=== PATIENT | female | born 1985 | race Caucasian/White ===

== ENCOUNTER 2017-10-10 10:49 | Day surgery (SDC) | payer OTHER, SELFPAY ==
[2017-10-10 11:28] VITALS: BP 113/65; PULSE 92; RESP 16; TEMP 36.7; O2SAT 100; BMI 34.3
[2017-10-10] MEDS: Doxycycline 100 MG CAPSULE PO (11:39)
--- NOTE | 2017-10-10 12:30 | POC_PTH ---
PATIENT: MARCOS DAVILA LOC: [facility] [place] U#:[id number] AGE/SX: 32/F ROOM: RE10/10/[address]: Dr. Tamy Savage MD : 1985 BED: DIS: 10/10/2017 SPEC #: [id number] RECD: 10/10/17 13:57 STATUS: PRABHU MARY ELLEN #: [id number] ITALIA: 10/10/17 12:[address]: Tamy Savage DEPT: SURGICAL PATHOLOGY RECD BY: Minal Morris ENTERED: 10/10/17 14:35 SP TYPE: PROD CONC OTHR DR: Dr. Flora Hart MD Tissues: Product of conception, NOS Procedures: Evaluation Small (ACH) Placental Eval (ACH) Surgery Specimen Level IV HEADER OPERATION: Dilation and curettage, suction PRE-OP DIAGNOSIS: Missed AB TISSUE SUBMITTED: POC for genetic studies MICROSCOPIC DIAGNOSIS Endometrium, curettage: Chorionic villi, decidualized stroma and trophoblastic cells consistent with products of conception. AM:delvis 10/13/17 MICROSCOPIC DESCRIPTION Slides are reviewed. GROSS DESCRIPTION Received is one container labeled with the patient's name and designated products of conception. The specimen consists of multiple irregular fragments of red-baker soft tissue that in aggregate measure 14 x 8 x 0.6 cm. Lead Loader portions are submitted for cytogenetic analysis. Lead Loader portions are submitted in one cassette. / AM:delvis 10/10/17 TC:5 CPT: 59382 ADDENDUM ADDENDUM ADDENDUM ADDENDUM ADDENDUM ADDENDUM ADDENDUM 10/23/2017 09:48 ADDENDUM 10/23/2017 09:48 ADDENDUM 10/23/2017 09:48 ADDENDUM 10/23/2017 09:48 ADDENDUM 10/23/2017 09:48 PROVISIONAL EVALUATION REPORT FROM [facility] PROVISIONAL ANATOMIC DIAGNOSIS: First trimester gestation with placental tissue that demonstrates fibrotic villi; placenta tissue is submitted for karyotype. * Please see complete report in EMR for further details *
[2017-10-10 13:40] VITALS: BP 109/73; BP 113/65; PULSE 83; RESP 14; TEMP 37.1; O2SAT 94
[2017-10-10 13:45] VITALS: BP 113/65; BP 123/66; PULSE 97; RESP 16; O2SAT 96
[2017-10-10 13:50] VITALS: BP 113/65; BP 117/72; PULSE 85; RESP 16; O2SAT 95
[2017-10-10 13:55] VITALS: BP 107/73; BP 113/65; PULSE 83; RESP 16; TEMP 36.3; O2SAT 97
--- NOTE | 2017-10-10 14:36 | PCM.DC.D&C ---
Allergies/Adverse Reactions: Allergies iodine Adverse Reaction (Verified 10/10/17 11:27) (IV DYE ONLY) Hives (IV DYE ONLY) Medications to take at Discharge Amoxicillin/Potassium Clav [Amox Tr-K Clv 875-125 mg Tab] 1 each PO BID 10/09/17 Primary Care Physician: Flora Hart MD [Primary Care Provider] - Please Follow Up With: Tamy Savage MD - [phone]
[2017-10-10 14:40] VITALS: BP 113/65
--- NOTE | 2017-10-13 05:45 | PCM.OPRPT ---
Problem List (1) Missed Status: Acute Report of Operation Date of Procedure: 10/10/17 Pre-Operative Diagnosis: missed ab Post-Operative Diagnosis: same Surgery/Procedure Performed:: suction d and c Description of Surgical Findings:: 10 week missed ab- pole measuring 9 weeks with no FHT seen Type of Anesthesia:: Local MAC Specimen's removed: POC Estimated Blood Loss (mL): 100 Fluids Replaced: crystalloid Description of Procedure: Patient was evaluated preoperatively and found to have a missed at 10 weeks of with a pole only measuring 9 weeks with no heart tones seen. Patient was counseled and offered medical management versus surgical and patient chose suction D&C. Patient received IV anesthesia was prepped and draped in normal sterile fashion in the dorsal lithotomy position. Cervix was grasped with ring forceps and previously dilated to allow passage of a 10 mm suction curette. Uterus sounded 10 cm. Multiple passes were made with the suction curette to remove products of conception and then sharp curettage was formed to confirm all removal of packs of conception. All instruments were removed from the vagina and patient was awoken and taken recovery in stable condition. Grafts/Implants Used: none - Complications none - Admit VTE Documentation VTE Present on Admission: No VTE Mechan Device Prophylaxis: SCD's
== END 2017-10-10 15:04 | disposition home or self-care (01) ==
LOC: SDC 10:50 → ACINP 10:51 → AC 10:55
PROVIDERS: Family Provider Family Medicine; PCP Family Medicine; Visit Provider Obstetrics & Gynecology
PROC: (CPT 59820; principal; 2017-10-10 12:15)
DX: O02.1 Missed abortion (principal); Z79.891 Long term (current) use of opiate analgesic
CPT/HCPCS: 01965; 59820; 88305; 88307; J7120; J2405

== ENCOUNTER → 2018-02-17 14:41 | Outpatient (CLI) | payer OTHER, SELFPAY ==
[2018-02-17 15:44] LABS: Absolute Lymphocyte Count 1.68 X10^3/ul (0.83-4.51); Absolute Neutrophil Count 7.2 X10^3/uL (2.0-7.7); Basophil# 0.03 X10^3/uL; Basophil% 0.3 % (0-1); Eosinophil# 0.08 X10^3/uL; Eosinophils% 0.8 % (0-5); Hematocrit 39.9 % (37-47); Hemoglobin 13.6 g/dl (12.0-15.0); Lymphocyte # 1.68 X10^3/ul (4.0); Lymphocyte % 17.2 % (19-41); Mean Corp Hgb Conc 34.1 g/gl (32-36); Mean Corpuscular Hgb 28.5 pg (27.0-32.0); Mean Corpuscular Volume 83.6 fL (81-99); Mean Platelet Vol. 11.2 fl (6.2-12.0); Monocyte# 0.81 X10^3/uL; Monocyte% 8.3 % (0-10); Neutrophil # 7.16 X10^3/uL (2.7-7.7); Neutrophil % 73.1 % (47-70); Platelet Count 189 K/mm3 (150-450); RBC Distribution Width CV 13.1 % (11.6-14.6); RBC Distribution Width SD 39.7 fl (35.1-43.9); Red Blood Count 4.77 M/mm3 (4.2-5.4); White Blood Count 9.8 K/mm3 (4.4-11.0)
[2018-02-17 15:53] LABS: POSITIVE COUNT NO; POSITIVE DIFFERENTIAL NO; POSITIVE MORPHOLOGY NO
[2018-02-18 10:41] LABS: HIV - WCH Non-Reactive (Nonreactive); Rubella IgG 114.3 IU/mL
[2018-02-20 03:47] LABS: Rapid Plasmin Reagin (RPR) NONREACTIVE (NONREACTIVE)
[2018-02-20 07:10] LABS: HEPATITIS B SURFACE AG Negative (Negative)
== END ==
PROVIDERS: Family Provider Family Medicine; PCP Family Medicine; Visit Provider Obstetrics & Gynecology
DX: Z34.90 Encounter for supervision of normal pregnancy, unspecified, unspecified trimester (principal)
CPT/HCPCS: 36415; 85025; 86592; 86703; 86762; 86850; 86900; 87340

== ENCOUNTER → 2018-02-17 15:01 | Outpatient (CLI) | payer OTHER, SELFPAY ==
[2018-02-17 16:44] LABS: Chlamydia Trachomatis by PCR Negative (Negative); Neisserai gonorrhoeae by PCR Negative (Negative); Probe Check PASS; Sample Adequacy Control PASS; Specimen Processing Control PASS
== END ==
PROVIDERS: Family Provider Family Medicine; PCP Family Medicine; Visit Provider Obstetrics & Gynecology
DX: Z34.90 Encounter for supervision of normal pregnancy, unspecified, unspecified trimester (principal)
CPT/HCPCS: 87086; 87088; 87491; 87591

== ENCOUNTER → 2018-03-12 13:27 | Outpatient (CLI) | payer OTHER, SELFPAY | PROVIDERS: Family Provider Family Medicine; PCP Family Medicine; Visit Provider Obstetrics & Gynecology | DX: Z31.5 Encounter for procreative genetic counseling (principal); O09.522 Supervision of elderly multigravida, second trimester; Z3A.00 Weeks of gestation of pregnancy not specified ==

== ENCOUNTER → 2018-04-29 16:19 | Outpatient (CLI) | payer OTHER, SELFPAY | PROVIDERS: Family Provider Family Medicine; PCP Family Medicine; Visit Provider Nurse Practitioner Women's Health | DX: O09.90 Supervision of high risk pregnancy, unspecified, unspecified trimester (principal); Z3A.00 Weeks of gestation of pregnancy not specified | CPT/HCPCS: 76805 ==

== ENCOUNTER → 2018-05-18 10:38 | Outpatient (CLI) | payer OTHER, SELFPAY | PROVIDERS: Family Provider Family Medicine; PCP Family Medicine; Visit Provider Obstetrics & Gynecology | DX: Z36.9 Encounter for antenatal screening, unspecified (principal) | CPT/HCPCS: 36415 ==

== ENCOUNTER → 2018-05-25 16:24 | Outpatient (CLI) | payer OTHER, SELFPAY ==
--- NOTE | 2018-05-25 16:43 | US_ITS ---
STUDY: SECOND AND THIRD TRIMESTER OBSTETRICAL ULTRASOUND - LIMITED REASON FOR EXAM: Female, 33 years old. Follow-up examination. LMP: 12/16/2017 PRIOR ULTRASOUND: 04/29/2018. TECHNIQUE: Transabdominal ultrasound evaluation was performed. FINDINGS: There is a single intrauterine fetus. The fetus is in a cephalic presentation. There is demonstrated cardiac activity with a heart rate of 156 bpm. There is a normal amniotic fluid volume. The amniotic fluid index (SAURAV) is not measured. The placenta is anterior in location and is not low lying. There are Grade 1 placental changes. The cervix measures 4.8 cm in length. BIOMETRY: BPD: 57 mm: 23 weeks, 2 days HC: 209 mm: 23 weeks, 0 days AC: 187 mm: 23 weeks, 4 days FL: 42 mm: 23 weeks, 4 days Age by LMP: 22 weeks, 6 days. ADRIAN by LMP: 09/22/2018. age by prior US: 20 weeks, 1 days. ADRIAN by prior US: 09/15/2018. age by current US: 23 weeks, 3 days. ADRIAN by current US: 09/18/2018. Estimated weight: 594 grams, +/- 87 grams, 72 percentile. Gender: Indeterminant. spine as visualized in the sagittal planes on this examination appears to be unremarkable. It is not well-seen on the transverse planes. US/OB Limited (No Biometrics) IMPRESSION: Single live intrauterine fetus in cephalic presentation with an estimated gestational age of 23 weeks and 3 days. The ADRIAN is 09/18/2018. Electronically Signed: Bryan Condon MD at 23:57 EDT Tel , Service support ,
== END ==
PROVIDERS: Family Provider Family Medicine; PCP Family Medicine; Visit Provider Nurse Practitioner Women's Health
DX: O09.90 Supervision of high risk pregnancy, unspecified, unspecified trimester (principal); Z3A.00 Weeks of gestation of pregnancy not specified
CPT/HCPCS: 76815

== ENCOUNTER → 2018-07-01 07:08 | Outpatient (CLI) | payer OTHER, SELFPAY ==
[2018-07-01 09:03] LABS: Absolute Lymphocyte Count 1.84 X10^3/ul (0.83-4.51); Absolute Neutrophil Count 8.4 X10^3/uL (2.0-7.7); Basophil# 0.03 X10^3/uL; Basophil% 0.3 % (0-1); Eosinophil# 0.16 X10^3/uL; Eosinophils% 1.4 % (0-5); Hematocrit 35.6 % (37-47); Hemoglobin 11.9 g/dl (12.0-15.0); Lymphocyte # 1.84 X10^3/ul (4.0); Lymphocyte % 15.8 % (19-41); Mean Corp Hgb Conc 33.4 g/gl (32-36); Mean Corpuscular Hgb 28.9 pg (27.0-32.0); Mean Corpuscular Volume 86.4 fL (81-99); Mean Platelet Vol. 11.7 fl (6.2-12.0); Monocyte# 1.08 X10^3/uL; Monocyte% 9.3 % (0-10); Neutrophil # 8.39 X10^3/uL (2.7-7.7); Neutrophil % 72.2 % (47-70); Platelet Count 169 K/mm3 (150-450); RBC Distribution Width CV 14.2 % (11.6-14.6); RBC Distribution Width SD 44.1 fl (35.1-43.9); Red Blood Count 4.12 M/mm3 (4.2-5.4); White Blood Count 11.6 K/mm3 (4.4-11.0)
[2018-07-01 09:05] LABS: POSITIVE COUNT NO; POSITIVE DIFFERENTIAL NO; POSITIVE MORPHOLOGY NO
[2018-07-01 09:23] LABS: Glucose Challenge Gest 1H 50g 67 mg/dL (70-140)
== END ==
PROVIDERS: Family Provider Family Medicine; PCP Family Medicine; Referring Provider Obstetrics & Gynecology; Visit Provider Obstetrics & Gynecology
DX: O09.90 Supervision of high risk pregnancy, unspecified, unspecified trimester (principal); Z3A.00 Weeks of gestation of pregnancy not specified
CPT/HCPCS: 36415; 82950; 85025

== ENCOUNTER 2018-09-02 02:11 | Inpatient (IN) | payer OTHER, SELFPAY ==
[2018-08-24 08:13] VITALS: BMI 39.6
[2018-09-02] MEDS: Betamethasone/Betamethasone 30 MG/5 ML Vial 12 MG IM (03:25)
[2018-09-02] MEDS: Lactated Ringers 1,000 ML 50 ML IV ×4 (03:31→17:35)
[2018-09-02] MEDS: miSOPROStol 25 MCG TABLET PO ×4 (03:41→11:43)
[2018-09-02 03:46] LABS: Hematocrit 33.1 % (37-47); Hemoglobin 11.1 g/dl (12.0-15.0); Mean Corp Hgb Conc 33.5 g/gl (32-36); Mean Corpuscular Hgb 28.5 pg (27.0-32.0); Mean Corpuscular Volume 84.9 fL (81-99); Platelet Count 149 K/mm3 (150-450); RBC Distribution Width SD 42.5 fl (35.1-43.9); Scan Indicated on CBC? Y/N NO; White Blood Count 11.9 K/mm3 (4.4-11.0)
[2018-09-02 03:55] VITALS: BMI 40.2
[2018-09-02 04:54] LABS: Group B Strep DNA By PCR Negative (Negative); Internal Control PASS; Probe Check PASS; Specimen Processing Control PASS
[2018-09-02] MEDS: Nalbuphine 10 MG/ML Ampul IV ×2 (06:06→09:59)
--- NOTE | 2018-09-02 06:59 | PCM.HP.OB ---
- Problem List (1) PROM (premature rupture of membranes) Status: Acute (2) Depression affecting Status: Acute Comment: zoloft, counseled regarding risks of medication, counseling encouraged (3) Status: Acute Qualifiers: Comment: NIPT WNL. carrier screening declined. AFP negative. anatomy scan limited view of spine- fu normal (4) Advanced maternal age (AMA) in Status: Acute Comment: NIPT low risk (5) Supervision of high risk , antepartum Status: Acute Comment: PRR ADRIAN 09/28/17 Girl PC Abimbola Obdulio History Date of Admission: 09/02/18 Final ADRIAN: 09/28/18 Gestational age: 36 Weeks and 2 Days History of this : This is a 33 year-old, at 36 weeks gestational age presents with PROM 1 cm dilated clear fluid minimal contractions. she denies any symptoms of infection and has had an uncomplicated . Medical History: Medical History (Last Reviewed 08/24/18 @ 08:13 by Cassi Saez) Anxiety F41.9 Melanoma C43.9 Surgical History: Surgical History (Last Reviewed 08/24/18 @ 08:13 by Cassi Saez) lymph node surgery S/P dilation and curettage Z98.890 Allergies iodine Adverse Reaction (Verified 09/02/18 04:19) (IV DYE ONLY) Hives (IV DYE ONLY) Home Medications: Home Medications docosahexanoic acid 200 mg capsule 200 mg PO DAILY 02/17/18 Sertraline HCl [Zoloft] 50 mg PO QDAY 09/02/18 Smoking Status: Never smoker Alcohol: None Number of Fetus(es): 1 Heart Tracin moderate variability reactive no decels cat I tracing TOCO Analysis: infrequent History Past Pregnancies: Past Pregnancies Pregancy History 3 Elective abortions Hx Para 1 Spontaneous abortions 1 Hx # Term Pregnancies 1 Ectopic pregnancies Hx # Pregnancies Multiple births # of living children 1 Past Pregnancies Del. Date Name GA/Weeks Outcome Route Bth Weight Infant Gen Labor Lgth Anesthesia Del Locatn Provider FOB Unknown 2013 Abimbola 38 live - full term Female Meron SHENA OB Visit ADRIAN Calculator Estimated Delivery Date 09/28/18 Based on Ultrasound Date 02/17/18 Current WG 35w 0d Number 1 Expected Delivery Route/Plan Specific Issue/Plans flu vaccine: given tdap vaccine: given rhogam: NA LARC form signed: decline labor support person: Obdulio pain management: epidural cut cord/dad catch: yes : yes PP control planned: special requests: [] Labs: Mom's Microbiology 09/02/18 Unknown Genital vaginal Group B Streptococcus Culture - Pending Mom's Problem List Problem Status Onset Code PROM (premature rupture of membranes) Acute O42.90 Mom's Labs & Results 09/02/18 09/02/18 09/02/18 02:31 03:25 03:25 WBC 11.9 H RBC 3.90 L Hgb 11.1 L Hct 33.1 L MCV 84.9 MCH 28.5 MCHC 33.5 RDW 14.0 RDW Differential 42.5 Plt Count 149 L MPV 12.0 Group B Strep DNA Negative Specimen Comment Not Reportable Blood Type O POSITIVE Antibody Screen NEGATIVE Course Did the patient receive Yes care? Labs Blood Type: O RH: POSITIVE RPR/VDRL/Syphilis Nonreactive Rubella status Immune HbSAg Negative Date Done: 02/17/18 Chlamydia Negative Gonorrhea Negative HIV/AIDS Non-Reactive Group B Strep: Collected on Admission Current Obstetrical History Gestational Diabetes No Incompetent Cervix No Infertility No IUGR No Macrosomia No Hypertension/Pre-eclampsia No Placenta Previa/Abruption No PTL/PROM Yes: srom 36.2 weeks Uterine anomaly No Oligohydramnios No Polyhydramnios No Multiple gestation No Past Medical History Asthma No Diabetes No Hypertension No Heart disease No Mitral valve prolapse No Neurologic/Seizure disorder/ No Migraines Kidney disease No Liver disease No Varicosities No Clotting disorders/Hx of DVT No Thyroid Dysfunction No Other medical diseases Yes: melanoma in 2013 Psychiatric disorders Yes: depression and anxiety Major trauma No Abnormal PAP smear No Sleep apnea No Mammogram in the last 2 years No Social History Marital Status: Alleged father Obdulio Nelson Hx Smoking No Smoking Status Never smoker How long have you used n/a substances (years)? What date/time did you last n/a use any of the above? Have you had any previous n/a inpatient or outpatient treatment Expected Delivery Method: Spontaneous Vaginal Describe any other labor & delivery plans:: OB Visit. ADRIAN Calculator. Estimated Delivery Date 09/28/18. Based on Ultrasound Date 02/17/18. Current WG 35w 0d. Number 1. Expected Delivery Route/Plan. . Specific Issue/Plans. flu vaccine: given. tdap vaccine: given. rhogam: NA. LARC form signed: decline. labor support person: Obdulio. pain management: epidural. cut cord/dad catch: yes. : yes. PP control planned: special requests: [] Review of Systems Constitutional: Denies: Fever, Malaise Eyes: Denies: Blurred vision, Vision Change HEENT: Denies: Head Aches, Visual Changes Cardiovascular: Denies: Chest Pain, Palpitations Respiratory: Denies: Cough, Shortness of Breath, Wheezing Gastrointestinal: Denies: Abdominal Pain, Diarrhea, Nausea, Vomiting Genitourinary: Denies: Dysuria, Hematuria Gynecological: Reports: Vaginal discharge Musculoskeletal: Denies: Joint Pain, Muscle pain Skin: Denies: Lesions, Rash Neurological: Denies: Blurred vision, Focal weakness, Headaches Psychiatric: Denies: Anxiety, Depression Endocrine: Denies: Heat/ Cold Intolerance Hematologic/ Lymphatic: Denies: Easy Bruising, Easy Bleeding Physical Exam General: Alert, Cooperative, No apparent distress HEENT: Atraumatic, Normocephalic. Negative for: Thyromegaly, Lymphadenopathy Cardiovascular: Regular rate Lungs: Normal air movement Abdomen: Soft, Non Tender, Gravid Neurological: Deep Tendon Reflexes 2+/4 and Symmetrical, Neuro grossly intact. Negative for: Clonus [employer] ADMINISTRATOR: Normal external genitalia. Negative for: Vulvar lesions Estimated gestational size: Appropriate for gestational size Presentation: Cephalic Cervix Dilation (cm): 1 Station: -3 Assessment/Plan All Active Problems (Last Reviewed 08/24/18 @ 08:13 by Cassi Saez) PROM (premature rupture of membranes) (Acute) Depression affecting (Acute) (Acute) Advanced maternal age (AMA) in (Acute) Supervision of high risk , antepartum (Acute) Advanced maternal age (AMA) in (Resolved) Missed (Resolved) Supervision of high-risk (Resolved) This is a 33 year-old, at 36 weeks gestational age with PPROM 1. gbs prophylaxis with ampicillin 2. prematurity- steroids given 3. cytotec IOL then pitocin 4. epi prn 5. rubella immunes rh positive
[2018-09-02] MEDS: proMETHazine 25 MG/ML Syringe IV (11:29)
--- NOTE | 2018-09-02 16:21 | PCM.PN.BLA ---
Progress Note fht 130 moderate variability reactive early decels cat I toco q 4-5
[2018-09-02] MEDS: fentaNYL-bupivacaine (epidural) 100 ML BAG EPIDURAL ×2 (16:57→19:47)
[2018-09-02] MEDS: Oxytocin 30 units/NS 500 ml 30 UNITS/500 ML IV.SOLN 334 UNITS IV (21:53)
--- NOTE | 2018-09-02 22:16 | PLAC_PTH ---
PATIENT: MARCOS DAVILA LOC: [facility] U#:[id number] AGE/SX: 33/F ROOM: WP010 RE09/02/[address]: Dr. Tamy Savage MD : 1985 BED: 1 DIS: 09/04/2018 SPEC #: [id number] RECD: 09/03/18 00:40 STATUS: PRABHU HYDE #: [id number] ITALIA: 09/02/18 22:[address]: Tamy Savage DEPT: SURGICAL PATHOLOGY RECD BY: Pavan Fraga ENTERED: 09/03/18 10:52 SP TYPE: PLACENTA OTHR DR: Dr. Flora Hart MD Tissues: Placenta, NOS Procedures: Surgery Specimen Level V HEADER OPERATION: Vaginal delivery PRE-OP DIAGNOSIS: History of melanoma TISSUE SUBMITTED: Placenta MICROSCOPIC DIAGNOSIS Marin placenta (595 gm): Umbilical cord - trivascular with mild acute funisitis. Placental membranes - no pathologic change. Placental disc - Najma-Sreekanth change and mild chronic decidual inflammation. AM:delvis 09/07/18 MICROSCOPIC DESCRIPTION Slides are reviewed. GROSS DESCRIPTION SPECIMEN: PLACENTA / CLINICAL INFORMATION: A. Weight: 3.3 kg B. Gestational Age: 36 weeks C. Sex: Female PLACENTAL WEIGHT (POST FIXATION): 595 gm PLACENTAL DIMENSIONS: 19 x 18 x 3 cm PLACENTAL SHAPE: Usual ovoid PLACENTAL WEIGHT FOR GESTATIONAL AGE: Within 10-99th percentile MEMBRANES - Present A. Insertion: Marginal B. Site of rupture from edge: 3 cm from edge of placental disc C. Color of membrane: Silva-ruggiero D. Abnormalities: None UMBILICAL CORD - Present A. Color: Silva-ruggiero B. Insertion: Eccentric C. Length: 33 cm D. Diameter: 1.3 cm E. Number of vessels: Three F. Abnormalities: None PLACENTAL DISC - Present A. Color of surface: Silva-ruggiero B. surface abnormalities: None C. Maternal cotyledons: Intact with minimal tears D. Attached retro placental clot: No clot E. Cut surface: Dark red and spongy F. Lesions: None G. Separate clot: Absent SECTIONS SUBMITTED: 1. Membrane roll and umbilical cord ( end notched) 2. Placental disc, and maternal surfaces 3. Placental disc, and maternal surfaces 4. Placental disc, and maternal surfaces AM:delvis 09/04/18 TC:2 CPT: 41100
--- NOTE | 2018-09-02 22:20 | OP.PCM_ITS ---
- Problem List (1) PROM (premature rupture of membranes) Status: Acute (2) Depression affecting Status: Acute Comment: zoloft, counseled regarding risks of medication, counseling encouraged (3) Status: Acute Qualifiers: Comment: NIPT WNL. carrier screening declined. AFP negative. anatomy scan limited view of spine- fu normal (4) Advanced maternal age (AMA) in Status: Acute Comment: NIPT low risk (5) Supervision of high risk , antepartum Status: Acute Comment: PRR ADRIAN 09/28/17 Girl PC Dorian Obdulio Vaginal Delivery Maternal Presentation: Spontaneous Rupture of Membranes iol PPROM Method of Induction: Cytotec Medical Reason for Induction: Premature Rupture of Membranes Amniotic Membrane Rupture Type: Spontaneous at home Amniotic Fluid Description: Clear Final ADRIAN: 09/28/18 Gestational age: 36 Weeks and 2 Days Date of Procedure: 09/02/18 Pre-Operative Diagnosis: pprom Post-Operative Diagnosis: same Surgery/ Procedure Performed: Spontaneous Vaginal Delivery Type of Anesthesia: Epidural Description of Procedure: Patient began pushing and delivered the head in the MANGO presentation. The head was delivered atraumatically and a loose nuchal cord x2 was identified and easily reduced over the infant's head. The anterior and posterior shoulders d elivered without complication followed by the rest of the and the infant was placed on the maternal abdomen. Delayed cord clamping was employed for approximately 60 seconds. Cord was clamped and cut and gentle traction was applied to the cord and the placenta delivered spontaneously immediately following it was noted to be intact with three-vessel cord. The perineum and vagina were inspected and noted to have a small first-degree perineal laceration that was repaired in the usual fashion with 3-0 Vicryl repeat. EBL was 300 cc. Patient and tolerated delivery well. Presentation: MANGO Placental Delivery Description: Spontaneous Placenta Disposition: [facility] Cord Vessel Description: 3 Vessels Cord Entanglement: Around neck x 2, loose Estimated Blood Loss: 300 Infant A gender: Female Episiotomy Description: None Laceration: Perineal Extension/lac, 1st degree Medications given after delivery: IV Pitocin Complications: None
--- NOTE | 2018-09-02 22:20 | DCINST_ITS ---
Discharge Diet: No Restrictions Discharge Activity: Return to Normal Activity, May not drive while taking narcotic pain medications., May Shower May resume sexual activity in: 4-6 weeks Call your doctor if your incision/area has: Continuous Slow Oozing, Sudden Increased Bleeding, Increased Pain/ Swelling, Increased Redness, Foul Smelling Discharge Additional Instructions: If you experience any of the following, contact your healthcare provider. * Bleeding that soaks a pad every hour for 2 hours * Fever 100.4 or higher * Unrelieved incision or abdominal pain * Swelling, redness, discharge or bleeding from your incision or episiotomy site * Your incision begins to separate * Problems urinating (including inability to urinate or burning while urinating). * Visual changes * Severe headache * Flu-like symptoms * Pain or redness in one of both of your breasts * Pain, warmth, tenderness or swelling in your legs, especially the calf area * Frequent nausea and vomiting * Symptoms of depression or anxiety If you experience any of the following, call 911 or go to the nearest Emergency Room. * Chest pain * Problems breathing * Seizure activity * Partial or complete paralysis of a body part, slurred speech, weakness or drooping of the face, or a sudden inability to walk or hold your balance Allergies/Adverse Reactions: Allergies iodine Adverse Reaction (Verified 09/02/18 04:19) (IV DYE ONLY) Hives (IV DYE ONLY) Medications to take at Discharge docosahexanoic acid 200 mg capsule 200 mg PO DAILY 02/17/18 Sertraline HCl [Zoloft] 50 mg PO QDAY 09/02/18 Please Follow Up With: Tamy Savage MD - [phone] When: Call to make an appointment with your doctor in 6 weeks. If you had elevated Blood pressure or 4th degree laceration you will need to be seen in 2 weeks. Primary Care Physician: Flora Hart MD [Primary Care Provider] - Test Results: Test results from this visit will be discussed in further detail at your follow- up appointment, if applicable.
--- NOTE | 2018-09-02 22:20 | PCM.DCVAG ---
Discharge Diet: No Restrictions Discharge Activity: Return to Normal Activity, May not drive while taking narcotic pain medications., May Shower May resume sexual activity in: 4-6 weeks Call your doctor if your incision/area has: Continuous Slow Oozing, Sudden Increased Bleeding, Increased Pain/ Swelling, Increased Redness, Foul Smelling Discharge Additional Instructions: If you experience any of the following, contact your healthcare provider. Bleeding that soaks a pad every hour for 2 hours Fever 100.4 or higher Unrelieved incision or abdominal pain Swelling, redness, discharge or bleeding from your incision or episiotomy site Your incision begins to separate Problems urinating (including inability to urinate or burning while urinating). Visual changes Severe headache Flu-like symptoms Pain or redness in one of both of your breasts Pain, warmth, tenderness or swelling in your legs, especially the calf area Frequent nausea and vomiting Symptoms of depression or anxiety If you experience any of the following, call 911 or go to the nearest Emergency Room. Chest pain Problems breathing Seizure activity Partial or complete paralysis of a body part, slurred speech, weakness or drooping of the face, or a sudden inability to walk or hold your balance Allergies/Adverse Reactions: Allergies iodine Adverse Reaction (Verified 09/02/18 04:19) (IV DYE ONLY) Hives (IV DYE ONLY) Medications to take at Discharge docosahexanoic acid 200 mg capsule 200 mg PO DAILY 02/17/18 Sertraline HCl [Zoloft] 50 mg PO QDAY 09/02/18 Please Follow Up With: Tamy Savage MD - [phone] When: Call to make an appointment with your doctor in 6 weeks. If you had elevated Blood pressure or 4th degree laceration you will need to be seen in 2 weeks. Primary Care Physician: Flora Hart MD [Primary Care Provider] - Test Results: Test results from this visit will be discussed in further detail at your follow-up appointment, if applicable.
[2018-09-02] MEDS: Oxytocin 30 units/NS 500 ml 30 UNITS/500 ML IV.SOLN 167 UNITS IV (22:30)
[2018-09-03 04:15] VITALS: BP 98/50; PULSE 95; RESP 16; TEMP 36.6; O2SAT 98
--- NOTE | 2018-09-03 07:33 | PCM.PN.OB ---
Patient Problems: Active and Suspected Problems (Last Reviewed 08/24/18 @ 08:13 by Cassi Saez) PROM (premature rupture of membranes) (Acute) Subjective: No CP, SOB. Doing well. - Physical Exam General: Alert, Oriented x3 Abdomen: Soft, Non Tender, - - FF below U Vital Signs Temp Pulse Resp BP Pulse Ox 97.9 F 95 16 98/50 L 98 09/03/18 04:15 09/03/18 04:15 09/03/18 04:15 09/03/18 04:15 09/03/18 04:15 Oxygen Delivery Method Room Air Weight: 249 lb 5.485 oz Body Mass Index (BMI) 40.2 Intake and Output for Last 24 Hours 09/01/18 09/02/18 09/03/18 23:59 23:59 23:59 Intake Total 4505 / 4505 Output Total 850 / 850 400 / 400 Balance 3655 / 3655 -400 / -400 Medical Necessity - Tobacco Use Smoking Status: Never smoker Assessment/Plan All Active Problems (Last Reviewed 08/24/18 @ 08:13 by Cassi Saez) PROM (premature rupture of membranes) (Acute) Depression affecting (Acute) (Acute) Advanced maternal age (AMA) in (Acute) Supervision of high risk , antepartum (Acute) Advanced maternal age (AMA) in (Resolved) Missed (Resolved) Supervision of high-risk (Resolved) PPD #1: Routine care. . Pain controlled.
[2018-09-03 08:31] VITALS: BP 103/61; PULSE 92; RESP 18; TEMP 36.8
[2018-09-03 08:45] LABS: Pathology Specimen OB SEE PATHOLOGY REPORT
[2018-09-03] MEDS: Naproxen 250 MG Tablet PO (09:42)
[2018-09-03] MEDS: Sertraline 50 MG Tablet PO (09:42)
[2018-09-03 12:28] VITALS: BP 101/58; PULSE 90; RESP 18; TEMP 36.4
[2018-09-03 16:00] VITALS: BP 121/68; PULSE 96; RESP 18; TEMP 36.5
[2018-09-03 19:53] VITALS: BP 114/69; PULSE 89; RESP 16; TEMP 36.6
[2018-09-04 02:45] VITALS: BP 109/56; PULSE 81; RESP 18; TEMP 36.1
--- NOTE | 2018-09-04 07:32 | PCM.PN.OB ---
Patient Problems: Active and Suspected Problems (Last Reviewed 08/24/18 @ 08:13 by Cassi Saez) PROM (premature rupture of membranes) (Acute) Subjective: Doing well. No CP, SOB. Plans home today. - Physical Exam General: Alert, Oriented x3 Abdomen: Soft, Non Tender, - - FF below U Vital Signs Temp Pulse Resp BP Pulse Ox 97.0 F L 81 18 109/56 L 98 09/04/18 02:45 09/04/18 02:45 09/04/18 02:45 09/04/18 02:45 09/03/18 04:15 Oxygen Delivery Method Room Air Weight: 249 lb 5.485 oz Body Mass Index (BMI) 40.2 Intake and Output for Last 24 Hours 09/02/18 09/03/18 09/04/18 23:59 23:59 23:59 Intake Total 4505 / 4505 Output Total 850 / 850 400 / 400 Balance 3655 / 3655 -400 / -400 Microbiology Past 72 Hours 09/02/18 Unknown Group B Streptococcus Culture - Preliminary Genital vaginal Medical Necessity - Tobacco Use Smoking Status: Never smoker Assessment/Plan All Active Problems (Last Reviewed 08/24/18 @ 08:13 by Cassi Saez) PROM (premature rupture of membranes) (Acute) Depression affecting (Acute) (Acute) Advanced maternal age (AMA) in (Acute) Supervision of high risk , antepartum (Acute) Advanced maternal age (AMA) in (Resolved) Missed (Resolved) Supervision of high-risk (Resolved) PPD #2: Routine care. Pain controlled with OTC meds. . Home today
[2018-09-04 09:41] VITALS: BP 124/75; PULSE 70; RESP 18; TEMP 36; O2SAT 98
[2018-09-04] MEDS: Sertraline 50 MG Tablet PO (10:27)
[2018-09-04 12:38] VITALS: BP 114/68; PULSE 66; RESP 16; TEMP 36.6
== END 2018-09-04 13:30 | disposition home or self-care (01) | DRG 807 ==
PROVIDERS: Admitting Provider Obstetrics & Gynecology; Family Provider Family Medicine; PCP Family Medicine; Visit Provider Obstetrics & Gynecology
DX: O99.344 Other mental disorders complicating childbirth (principal); Z37.0 Single live birth; O42.013 Preterm premature rupture of membranes, onset of labor within 24 hours of rupture, third trimester; O76 Abnormality in fetal heart rate and rhythm complicating labor and delivery; O69.81X0 Labor and delivery complicated by cord around neck, without compression, not applicable or unspecified; O70.0 First degree perineal laceration during delivery; F41.8 Other specified anxiety disorders; Z3A.36 36 weeks gestation of pregnancy; Z79.899 Other long term (current) drug therapy
CPT/HCPCS: 59025; 59050; 85027; 86850; 86900; 87081; 87653; 88307; 99218; J7120; G0378; J0290; J0702

== ENCOUNTER → 2018-10-16 16:26 | Outpatient (CLI) | payer OTHER, SELFPAY ==
[2018-10-16 14:06] VITALS: BMI 40.2
[2018-10-23 22:39] LABS: HPV APTIMA, High Risk Negative (Negative)
== END ==
PROVIDERS: Family Provider Family Medicine; PCP Family Medicine; Referring Provider Obstetrics & Gynecology; Visit Provider Obstetrics & Gynecology
DX: Z12.4 Encounter for screening for malignant neoplasm of cervix (principal)
CPT/HCPCS: 87624; 88175; G0145

== ENCOUNTER → 2020-01-25 07:06 | Outpatient (CLI) | payer OTHER, SELFPAY ==
[2019-01-12 08:59] VITALS: BMI 35.2
--- NOTE | 2020-01-25 07:21 | MRI_ITS ---
STUDY: MRI BRAIN WITH AND WITHOUT CONTRAST REASON FOR EXAM: Female, 35 years old. melanoma on back, bells palsy?, changes in taste, asymetrical smile TECHNIQUE: Standardized multiplanar fat and water weighted pulse sequences were obtained. 20ml Dotarem via IV was administered for the contrast portion of the examination. COMPARISON: None. FINDINGS: Normal size of the ventricles and extra-axial spaces for the patient''s age. Normal white matter tracts of the supratentorial brain. There is no evidence for recent intracranial ischemia or other cause of cytotoxic edema on diffusion weighted imaging (DWI). Normal T2* images of the brain without demonstrated susceptibility artifact. There is no demonstrated hemosiderin stain. Normal bilateral basal ganglia. Normal thalami. There is no extra-axial fluid accumulation. Normal flow voids within the major intracranial circulation suggesting patency by spin echo criteria. Normal venous enhancement. There is no enhancing intra-axial or extra-axial abnormality. Normal sella turcica, pituitary gland, infundibular stalk, optic chiasm and hypothalamus. Normal tectal plate and pineal gland. Normal midbrain, leidy and medulla. Normal cerebellum. Normal basal cisterns. Normal bilateral temporal bones. Normal bilateral internal auditory canals. No demonstrated orbital abnormality, within the constraints of a routine brain study. Normal visualized paranasal sinuses. Normal calvarium and skull base. Normal visualized soft tissue structures. Normal visualized upper cervical spine. MRI/Brain W/WO Contrast IMPRESSION: Normal unenhanced and enhanced MRI of the brain. Electronically Signed: Pavan Johansen MD at 10:18 EDT Tel , Service support ,
--- NOTE | 2020-01-25 07:24 | CT_ITS ---
STUDY: CT ABDOMEN AND PELVIS WITH CONTRAST REASON FOR EXAM: Female, 35 years old. 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 Oral and amp; IV Gastrografin and amp; 100mL Isovue-300 was administered. Sagittal and coronal images were reconstructed. Individualized dose optimization techniques were used for this CT. COMPARISON: None. FINDINGS: The visualized lung bases are unremarkable. The visualized portions of the heart are within normal limits. There is a small decreased attenuation lesion in the right lobe of the liver segment #6 axial image #27 measures 1 cm most likely representing a cyst. Normal gallbladder and extrahepatic biliary system. Normal spleen. Normal pancreas. Normal bilateral adrenal glands. Normal right kidney. Normal left kidney. Normal visualized stomach. Normal small intestine. Normal colon. There are surgical clips in the region of the appendix consistent with a prior appendectomy. Normal abdominal aorta. Normal inferior vena cava. Normal retroperitoneum. Normal urinary bladder. Normal abdominal wall. Normal osseous structures. CT/Abdomen/Pelvis WITH Contrast IMPRESSION: There is no evidence of metastatic lesions in the abdomen and pelvis. Electronically Signed: Evonne Morales, at 14:29 EDT Tel , Service support ,
--- NOTE | 2020-01-25 07:24 | CT_ITS ---
STUDY: CT CHEST WITH CONTRAST REASON FOR EXAM: Female, 35 years old. MELANOMA ONE YR CHECKUP-MELAONOMA ON BACK REMOVED WITH LYMPH NODE DISSECTION, APPY RADIATION DOSAGE (If Supplied By Facility): CTDIvol = ( 25.78 ) mGy, DLP = ( 1744.14 ) mGycm TECHNIQUE: Transaxial imaging was performed following intravenous administration of Oral and amp; IV Gastrografin and amp; 100mL Isovue-300. Individualized dose optimization techniques were used for this CT. COMPARISON: None. FINDINGS: The lungs are normal. There is no demonstrated pleural abnormality. Normal heart and pericardium. Normal mediastinum. Normal hilar regions. Normal enhanced pulmonary arteries. Normal aorta arch and descending thoracic aorta. Normal osseous structures. There is no demonstrated abnormality of the visualized upper abdomen. CT/Chest WITH Contrast IMPRESSION: Normal enhanced CT Chest examination. Electronically Signed: Evonne Morales, at 14:29 EDT Tel , Service support ,
[2020-01-25 07:42] LABS: Absolute Lymphocyte Count 0.99 X10^3/uL (0.83-4.51); Absolute Neutrophil Count 9.3 X10^3/uL (2.0-7.7); Basophil# 0.01 X10^3/uL; Basophil% 0.1 % (0-1); Hematocrit 45.3 % (37-47); Hemoglobin 15.3 g/dL (12.0-15.0); Lymphocyte # 0.99 X10^3/ul (4.0); Lymphocyte % 9.4 % (19-41); Mean Corp Hgb Conc 33.8 g/dL (32-36); Mean Corpuscular Hgb 28.5 pg (27.0-32.0); Mean Corpuscular Volume 84.5 fL (81-99); Mean Platelet Vol. 11.7 fl (6.2-12.0); Monocyte# 0.18 X10^3/uL; Monocyte% 1.7 % (0-10); NRBC Flagged by Analyzer 0 % (0-5); Neutrophil % 88.2 % (47-70); Platelet Count 227 K/mm3 (150-450); RBC Distribution Width CV 12.1 % (11.6-14.6); RBC Distribution Width SD 36.4 fl (35.1-43.9); Red Blood Count 5.36 M/mm3 (4.2-5.4); White Blood Count 10.5 K/mm3 (4.4-11.0)
[2020-01-25 07:58] LABS: AST(SGOT) 20 U/L (15-37); Alanine Aminotransfer ALT/SGPT 23 U/L (13-56); Albumin, Serum 4.2 g/dL (3.2-5.0); Alkaline Phosphatase 75 U/L (45-117); Anion Gap 10 (5-15); BUN 11 mg/dL (7-18); BUN/Creat Ratio 15.5 RATIO (10-20); Calcium,Total 8.9 mg/dL (8.5-10.1); Chloride 105 mmol/L (98-107); Creatinine, Serum 0.71 mg/dL (0.55-1.02); EST Glomerular Filtration Rate 99 mL/min (>60); Est Glom Filt Rate - Afr Amer 120 mL/min (>60); Globulin 4.1 g/dL (2.2-4.2); Glucose 133 mg/dL (74-106); LDH 184 U/L (84-246); Potassium 4.1 mmol/L (3.5-5.1); Protein, Total 8.3 g/dL (6.4-8.2); Sodium Level 140 mmol/L (136-145)
--- NOTE | 2020-01-25 09:59 | NURSING ---
Pt reports tongue tingling in MRI. JESSE Hampton evaluated pt who had prednisode and diphenhydramine protocol before CT this morning, prior to MRI. Pt denies SOB, tongue swelling. JESSE Hampton advises pt if she starts having SOB or tongue swelling to push her button in the MRI.
[2020-01-26 07:17] LABS: CREATININE FINGERSTICK 0.78 mg/dL (0.55-1.02); EGFR FINGERSTICK > 60 mL/min (>60)
== END ==
PROVIDERS: PCP Family Medicine
DX: C43.59 Malignant melanoma of other part of trunk (principal)
CPT/HCPCS: 36415; 70553; 71260; 74177; 80053; 83615; 85025; A9575; Q9967

== ENCOUNTER → 2022-02-07 | Outpatient (CLI) | payer OTHER, SELFPAY ==
--- NOTE | 2022-02-07 07:54 | BI_ITS ---
MAMMOGRAPHY - BILATERAL SCREENING REASON FOR EXAM: Female, 37 years old. Routine annual screening examination. PERTINENT HISTORY: Non-contributory. TECHNIQUE: Digital bilateral breast kimo (3D mammographic acquisition) in the CC and MLO projections. 2-D mediolateral oblique (MLO) and craniocaudad (CC) views of both breasts were obtained. CAD: Full Field Digital Mammography with Computer Added Detection was performed. COMPARISON: None. Baseline examination. FINDINGS: Breast Composition: The breasts are heterogeneously dense, which may obscure small masses. There are no dominant masses or suspicious calcifications. No other significant abnormalities are identified. There has been no significant change since the prior study. BI/SCRN MAMM (CAD)W/KIMO BILAT IMPRESSION: Stable bilateral screening mammogram. Yearly follow-up mammogram recommended. (A) ASSESSMENT CATEGORY: BIRADS Category 1: Negative. A letter regarding these results will be sent to the patient by the facility within 30 days. Approximately 10% of breast cancers are not detected by mammography. A normal mammogram should not delay biopsy of a clinically suspicious abnormality. [id number] Electronically Signed: Kamlesh Quintanilla MD at 9:03 EDT ,
== END | disposition home or self-care (01) ==
LOC: OPBI 07:53
PROVIDERS: PCP Family Medicine; Visit Provider Nurse Practitioner Women's Health
DX: Z12.31 Encounter for screening mammogram for malignant neoplasm of breast (principal)
CPT/HCPCS: 77063; 77067

== ENCOUNTER → 2023-02-10 | Outpatient (CLI) | payer OTHER, SELFPAY ==
--- NOTE | 2023-02-10 13:52 | BI_ITS ---
MAMMOGRAPHY - BILATERAL SCREENING REASON FOR EXAM: Female, 38 years old. Routine annual screening examination. PERTINENT HISTORY: Non-contributory. TECHNIQUE: Digital bilateral breast kimo (3D mammographic acquisition) in the CC and MLO projections. 2-D mediolateral oblique (MLO) and craniocaudad (CC) views of both breasts were obtained. CAD: Full Field Digital Mammography with Computer Added Detection was performed. COMPARISON: Comparison is made with prior study dated February 07, 2022. FINDINGS: Breast Composition: The breasts are heterogeneously dense, which may obscure small masses. There are no dominant masses or suspicious calcifications. No other significant abnormalities are identified. There has been no significant change since the prior study. BI/SCRN MAMM (CAD)W/KIMO BILAT IMPRESSION: Stable bilateral screening mammogram. Yearly follow-up mammogram recommended. (A) ASSESSMENT CATEGORY: BIRADS Category 1: Negative. A letter regarding these results will be sent to the patient by the facility within 30 days. Approximately 10% of breast cancers are not detected by mammography. A normal mammogram should not delay biopsy of a clinically suspicious abnormality. [id number] Electronically Signed: Kamlesh Quintanilla MD at 15:05 EDT ,
== END | disposition home or self-care (01) ==
LOC: OPBI 13:51
PROVIDERS: PCP Family Medicine; Referring Provider Nurse Practitioner Women's Health; Visit Provider Nurse Practitioner Women's Health
DX: Z12.31 Encounter for screening mammogram for malignant neoplasm of breast (principal)
CPT/HCPCS: 77063; 77067

== ENCOUNTER → 2023-09-18 | Outpatient (CLI) | payer OTHER, SELFPAY ==
--- OUTSIDE RECORDS SUMMARY | 2023-09-18 17:09 | XMS RPT_ITS | CCD ---
Author Name Unknown Address [address] [place] [address] Organization [facility] Care Team Providers Care Fishing Floats Assembler Name Role Phone Flora Hart MD Primary Care Provider Rosemary Peña MD, Stefan Edmond Unavailable [phone] Kenna Drake MD Unavailable Diana BYRD, PhD, Felicitas Groves Unavailable Flora Hart Primary Care Provider ITA RAMOS Attending Unavailable FLORA HART Primary Care Unavailable Flora Hart MD Primary Care Provider [phone] Rosemary Peña MD, Stefan Edmond Unavailable Kenna Drake MD Unavailable Diana BYRD, PhD, Felicitas Groves Unavailable FELICITAS PUCKETT Attending Unavailable STEFAN JOSÉ JR. Referring Unavailable FLORA HART Primary Care Unavailable FLORA HART Primary Care Unavailable FELICITAS PUCKETT Referring Unavailable FELICITAS PUCKETT Attending Unavailable Allergies Allergy Classification Reported Allergen(s) Allergy Type Date of Onset Reaction(s) Facility (3 sources) Diatrizoate Drug Allergy 05-16-2016 [place] [facility] Work Phone: (2 sources) Diatrizoic Acid; Translations: [DIATRIZOIC ACID] Propensity to adverse reactions to drug 05-16-2016 [place] [facility] Medications Current Medications Medication Drug Class(es) Dates Sig (Normalized) Sig (Original) ascorbic acid 1000 mg oral tablet (4 sources) Vitamin C take 1000 mg by mout h once daily Ascorbic Acid (VITAMIN C PO) take 1,000 mg by mouth daily. 0 Active Completed/Discontinued Medications Medication Drug Class(es) Dates Sig (Normalized) Sig (Original) Calcium Carbonate / vitamin D3 (1 source) CALCIUM CARBONATE/VITAMIN D3 (VITAMIN D-3 ORAL) Take by mouth. 0 Active Problems Active Problems Problem Classification Problem Date Documented Da te Episodic/Chronic Asthma (1 source) Childhood asthma; Translations: [Unspecified asthma, uncomplicated] Onset: 03-08-2013 09-03-2021 Chronic Melanomas of skin (8 sources) Malignant melanoma of back; Translations: [Malignant melanoma of other part of trunk] Onset: 09-07-2014 Chronic Melanomas of skin (2 sources) Personal history of malignant melanoma of skin; Translations: [Personal history of malignant melanoma of skin] Onset: 03-03-2023 Episodic Mood disorders (1 source) Depressive disorder; Translations: [Depression] Onset: 04-11-2014 04-11-2014 Chronic Other aftercare (2 sources) H/O Malignant melanoma; Translations: [Encounter for follow-up examination after completed treatment for malignant neoplasm] Episodic Other aftercare (2 sources) Encounter for follow-up examination after completed treatment for malignant neoplasm; Translations: [Encounter for follow-up examination after completed treatment for malignant neoplasm] Onset: 03-03-2023 Episodic Other liver diseases (3 sources) Lesion of liver; Translations: [Liver disease, unspecified] Onset: 02-29-2016 02-29-2016 Chronic Other nutritional; endocrine; and metabolic disorders (3 sources) Obese class II; Translations: [Obesity, unspecified] Onset: 03-06-2021 03-06-2021 Chronic Other screening for suspected conditions (not mental disorders or infectious disease) (3 sources) Computed tomography result abnormal; Translations: [Abnormal findings on diagnostic imaging of other specified body structures] Onset: 02-29-2016 02-29-2016 Chronic Other upper respiratory infections (4 sources) Sore throat symptom; Translations: [Acute pharyngitis, unspecified] Onset: 06-30-2022 Episodic Past or Other Problems Problem Classification Problem Date Documented Da te Episodic/Chronic E Codes: Adverse effects of medical drugs (3 sources) Allergic reaction to substance; Translations: [Adverse effect of other drugs, medicaments and biological substances, initial encounter] Onset: 05-16-2016 05-16-2016 Episodic Mood disorders (2 sources) Mood disorders Onset: 03-04-2022 Resolved: 03-04-2022 03-04-2022 Other screening for suspected conditions (not mental disorders or infectious disease) (3 sources) Suspected malignancy; Translations: [Encounter for observation for other suspected diseases and conditions ruled out] Onset: 03-13-2015 03-13-2015 Episodic Results Test Name Value Interpretation Reference Range Facil ity Vital Signs Date Time Vital Sign Value Performing Clinician Facility 03-03-2023 11:52-0400 Body height 167.6 cm Felicitas Puckett MD, PhD Work Phone: [phone] [place] [address] 03-03-2023 11:52-0400 Body mass index (BMI) [Ratio] 38.38 kg/m2 Felicitas Puckett MD, PhD Work Phone: [phone] [place] [address] 03-03-2023 11:52-0400 Body temperature 98.4 [degF] Felicitas Puckett MD, PhD Work Phone: [phone] [place] [address] 03-03-2023 11:52-0400 Body weight 107.86 kg Felicitas Puckett MD, PhD Work Phone: [phone] [place] [address] 03-03-2023 11:52-0400 Diastolic blood pressure 78 mm[Hg] Felicitas Puckett MD, PhD Work Phone: [phone] [place] [address] 03-03-2023 11:52-0400 Heart rate 81 /min Felicitas Puckett MD, PhD Work Phone: [phone] [place] [address] 03-03-2023 11:52-0400 Respiratory rate 16 /min Felicitas Puckett MD, PhD Work Phone: [phone] [place] [address] 03-03-2023 11:52-0400 SaO2% (BldA) [Mass fraction] 98 % Felicitas Puckett MD, PhD Work Phone: [facility] 03-03-2023 11:52-0400 Systolic blood pressure 129 mm[Hg] Felicitas Puckett MD, PhD Work Phone: [facility] 06-30-2022 10:00-0400 Body temperature 97.81 [degF] Ita Rachel RETICLE PRINTER.PRODUCTION OPERATIONS MANAGER Work Phone: [facility] 06-30-2022 10:00-0400 Body weight 98.97 kg Ita Auk RETICLE PRINTER.PRODUCTION OPERATIONS MANAGER Work Phone: [facility] 06-30-2022 10:00-0400 Diastolic blood pressure 76 mm[Hg] Ita Rachel RETICLE PRINTER.PRODUCTION OPERATIONS MANAGER Work Phone: [facility] 06-30-2022 10:00-0400 Heart rate 103 /min Ita Rachel RETICLE PRINTER.PRODUCTION OPERATIONS MANAGER Work Phone: [facility] 06-30-2022 10:00-0400 Respiratory rate 16 /min Ita Rachel RETICLE PRINTER.PRODUCTION OPERATIONS MANAGER Work Phone: [facility] 06-30-2022 10:00-0400 SaO2% (BldA) [Mass fraction] 99 % Ita Auk RETICLE PRINTER.PRODUCTION OPERATIONS MANAGER Work Phone: [facility] 06-30-2022 10:00-0400 Systolic blood pressure 128 mm[Hg] Ita Auk RETICLE PRINTER.PRODUCTION OPERATIONS MANAGER Work Phone: [facility] 03-04-2022 11:16-0400 Body height 168.4 cm Felicitas Puckett MD, PhD Work Phone: [facility] 03-04-2022 11:16-0400 Body mass index (BMI) [Ratio] 35.27 kg/m2 Felicitas Puckett MD, PhD Work Phone: [facility] 03-04-2022 11:16-0400 Body temperature 98.01 [degF] Felicitas Puckett MD, PhD Work Phone: [facility] 03-04-2022 11:16-0400 Body weight 100.02 kg Felicitas Puckett MD, PhD Work Phone: [facility] 03-04-2022 11:16-0400 Diastolic blood pressure 78 mm[Hg] Felicitas Puckett MD, PhD Work Phone: [facility] 03-04-2022 11:16-0400 Heart rate 79 /min Felicitas Puckett MD, PhD Work Phone: [facility] 03-04-2022 11:16-0400 Respiratory rate 16 /min Felicitas Puckett MD, PhD Work Phone: [facility] 03-04-2022 11:16-0400 SaO2% (BldA) [Mass fraction] 99 % Felicitas Puckett MD, PhD Work Phone: [facility] 03-04-2022 11:16-0400 Systolic blood pressure 144 mm[Hg] Felicitas Puckett MD, PhD Work Phone: [facility] Encounters Encounter Date Encounter Type Care Provider Facility Start: 03-03-2023 ambulatory FELICITAS PUCKETT Facility: [facility] Start: 03-03-2023 Patient encounter procedure FELICITAS PUCKETT Facility:[facility] Start: 03-03-2023 End: 03-03-2023 Office outpatient visit 15 minutes Felicitas Puckett MD, PhD Work Phone: [facility] Procedures Date Procedure Procedure Detail Performing Clinician Start: 06-30-2022 STREP A MOLECULAR (POC) Ita Ramos APRN.PRODUCTION OPERATIONS MANAGER Work Phone: Plan of Treatment Date Care Activity Detail Author Start: 07-01-2028 Tetanus vaccination TETANUS [facility] Start: 03-03-2024 End: 03-03-2024 Complete blood count with white cell differential, automated CBC, EDIF, PLATELET Lab Routine Malignant melanoma of back Encounter for follow-up surveillance of melanoma Expected: 03/03/2024 (Approximate), Expires: 03/03/2024 [facility] Immunizations Immunization Date Immunization Notes Care Provider Fa cililuke 07-09-2018 influenza virus vaccine, unspecified formulation Felicitas Puckett MD, PhD Work Phone: [facility] 06-27-2014 influenza virus vaccine, unspecified formulation Felicitas Puckett MD, PhD Work Phone: [facility] 08-31-2013 tetanus toxoid, redu robe diphtheria toxoid, and acellular pertussis vaccine, adsorbed Ita Rachel RETICLE PRINTER.PRODUCTION OPERATIONS MANAGER Work Phone: [facility] 06-19-2013 influenza virus vaccine, unspecified formulation Ita Rachel RETICLE PRINTER.PRODUCTION OPERATIONS MANAGER Work Phone: [facility] Payers Date Payer Category Payer Unknown [employer] [place] [id number] 2014-Present [address] [place] [address] [id number] 2014 Unknown [id number] 2014 Unknown [id number] 1985 Unknown [id number] 1985 Unknown [id number] Social History Date Type Detail Facility Tobacco smoking stat [facility] Never smoker [facility] Start: 03-06-2021 End: 03-03-2023 Alcohol intake Current drinker of alcohol (finding) [facility] Start: 12-16-2016 Alcohol Comment 3 [facility] Start: 1985 Sex Assigned At Not on file O [facility] Exposure to SARS-CoV -2 (event) Unable to assess [facility] Start: 01-10-2015 [facility] Start: 01-10-2015 Tobacco use and exposure Smokeless tobacco non-user [facility] Work Phone: Start: 01-10-[address] [facility] Start: 06-20-2022 End: 06-30-2022 Exposure to SARS-CoV-2 (event) Not sure [facility] Start: 03-04-2022 End: 03-03-2023 History of Social function [facility] Start: 03-04-2022 End: 03-03-2023 Tobacco use panel [facility] Adolescent depressio n screening assessment 1 [facility] Gender identity Identifies as fe male gender (finding) [facility] Goals Date Patient Goal Desired Activity /State Personal health goal Clinical Notes 04-06-2013 to 03-03-2023 Felicitas Puckett MD, PhD - 03/03/2023 11:40 AM EDTPatient InstructionsPatient Inez Ramos APRN.[facility] - 06/30/2022 10:16 AM EDTJerommel Patrick APRN-[facility] - 03/04/2022 11:20 AM EDT Note Date & Type Note Facility 03-03-2023 History of Present illness Narrative Images from the original note were not included. [facility] Mrs. Nelson is 38 y.o. 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 Chief Complaint Patient presents with Follow-up History of Present Illness: Current therapy: Observation, s/p resection Interval history: Ms. Nelson presents with her for a surveillance visit after completion of labs. She reports she continues to feel well and denies any concerns. Previously she called reporting hip pain. This resolved prior to her pcp visit without intervention. She is scheduled to see dermatology and is anticipating having a lesion removed from her back on her next visit. She denies fever, chills, night sweats, headaches, vision change, hearing loss, dysphagia, cough, shortness of breath, chest pain, palpitations, nausea, vomiting, diarrhea, constipation, abdominal pain, melena, hematochezia, rash, urination pattern change, hematuria, myalgia, muscle weakness, arthralgia, or mood change. Melanoma history: She has been undergoing yearly dermatological examination since 2007 and during her first noticed a change in her mole. She brought it up to her PCP 06/2013 who referred her to a electrical apprentice. She delivered a healthy child 12/2013, then underwent a biopsy on 11/16/2013 of left mid-back with biopsy ([id number]), reviewed at [facility] on 03/25/2014. Patient Active Problem List Diagnosis Date Noted Obesity: body mass index of 35.0-39.9 03/06/2021 Allergy to IVP dye 05/16/[address] scan 02/29/2016 Liver lesion 02/29/2016 Observation for suspected malignant neoplasm 03/13/2015 Malignant melanoma of back 09/07/2014 11/16/2013 left mid-back, biopsy ([id number]), reviewed at [facility] on 03/25/2014- malignant melanoma, possibly nodular type, tumor thickness at least 1.78 mm, Moose IV, no ulceration, peripheral and deep margins involved by invasive melanoma, mitotic count is 1/mm2, vertical growth phase present 11/25/2013 biopsy ([id number])- mildly dysplastic compound nevus, inked margins free in planes of sections examined 12/08/2013 skin, left upper back, excision & left axillary SLN lymphadenectomy ([id number]): o 03/21/14 pathology was reviewed at [facility] ([id number]) o Wide excision: scar, inked margins are free in planes of sections examined. o [place] lymph node, left axilla, lymphadenectomy: focus of HMB-45 and MART - 1- positive cells. Note: microscopic examination reveal an enlarged lymph node. Just under the capsule, there is a focus of HMB-45 and MART - 1- positive cells. These cell are not seen on H/T/E or S-100 or SOX-10 stains. These cells are compared with the original melanoma biopsy is similar and these findings are consistent with a small focus of metastatic melanoma 03/14/2014 PET- negative 04/11/2014 Dr. José recommend complete torey dissection 05/05/2014 completed left axillary lymph node dissection-34 lymph nodes negative for metastatic disease (0/34) 11/04/14 right mid upper back ([id number]): mildly dysplastic compound nevus o Right lateral upper back: Compound nevus 02/17/15 skin biopsies ([id number]) Left lalteral abdomen: Compound nevus Right 2nd toe: Acral compound nevus Left lower abdomen: Moderately dysplastic junctional nevus. 03/21/15 wide excision ([id number]): A. Left lower abdomen: Negative for residual neoplasm. B. Right mid upper back: Focal recurrent nevus; negative margins. 04/12/16 mid chest, shave removal ([id number]): Atypical nevi. Past Medical History: Past Medical History: Diagnosis Date Malignant melanoma of back 09/07/2014 11/16/2013 left mid-back, biopsy ([id number]), reviewed at [facility] on 03/25/2014- malignant melanoma, possibly nodular type, tumor thickness at least 1.78 mm, Moose IV, no ulceration, peripheral and deep margins involved by invasive melanoma, mitotic count is 1/mm2, vertical growth phase present 11/25/2013 biopsy ([id number])- mildly dysplastic compound nevus, inked margins free in planes Past Surgical History: Past Surgical History: Procedure Laterality Date DILATION AND CURETTAGE 10/10/2017 [facility]; D&C for miscarriage LYMPH NODE DISSECTION Left 04/2014 axilla BIOPSY Left 11/16/2013 left mid-back postive for melanoma BX LYMPH NODE Right 11/2013 axilla APPENDECTOMY 2002 FOOT SURGERY Left Medications/Allergies: Medications: Current Outpatient Medications Medication Sig Ascorbic Acid (VITAMIN C PO) take 1,000 mg by mouth daily. Sertraline 50 MG tablet Take 1 tablet by mouth daily. Allergies: Allergies Allergen Reactions Ivp Dye, Iodine Containing Rash Social History/ Family History: She reports that she has never smoked. She has never used smokeless tobacco. She reports current alcohol use. She reports that she does not use drugs. Family History Problem Relation Age of Onset Hypertension Father Other - Specify Father afib Lipid Disorder Father Heart Disease - Other Father quad bypass Other - Specify Mother spinocerebellar ataxia Cancer Maternal Grandmother myeloma Family Status Relation Name Status Father Alive Mother Alive Brother Alive Hansel Alive MGM (Not Specified) Review of Systems: Review of systems was performed with the patient at today's visit and is negative except for those items mentioned in the interval history. Physical Examination: Blood pressure 129/78, pulse 81, temperature 98.4 F (36.9 C), temperature source Oral, resp. rate 16, height 1.676 m (5' 6 ), weight 107.9 kg (237 lb 12.8 oz), SpO2 98 %, currently . PS= 0 DS=20 (03/06/21), 15 (03/04/22) General The patient is alert and oriented x 3 HEENT Mucous membranes moist. No mucositis or thrush. Lungs Clear to auscultation bilaterally. No wheezes, rales or rhonchi. Cardiac S1, S2 normal. Rate and rhythm regular. No murmur. GI Abdomen is soft, nontender, nondistended, positive bowel sounds. No hepatomegaly. Extremities Mild edema localized at right calf when compared to the left, no tenderness to palpation, no erythema. Neurological Exam Essentially unremarkable. No focal neruological deficit. Muscle strength 5/5 in all extremities and symmetric. Skin Skin is dry and warm. Right upper back incision is well healed, no concern for disease recurrence. Lymph Nodes No axillary or inguinal adenopathy. Psychiatric Appropriate for age and clinical situation. Serum Labs/Scans: Lab Results Component Value Date WBC 6.92 03/03/2023 HGB 14.8 03/03/2023 HCT 43.9 03/03/2023 PLATELET 202 03/03/2023 MCV 84.1 03/03/2023 Lab Results Component Value Date SODIUM 138 03/03/2023 SODIUM 140 12/16/2018 POTASSIUM 4.1 03/03/2023 POTASSIUM 4.2 12/16/2018 CHLORIDE 108 03/03/2023 CHLORIDE 108 12/16/2018 CO2 24 03/03/2023 CO2 22 12/16/2018 BUN 15 03/03/2023 BUN 18 12/16/2018 CREATSERUM 0.61 03/03/2023 CREATSERUM 0.69 12/16/2018 CREATSERUM 0.92 12/15/2017 Lab Results Component Value Date ALT 18 03/03/2023 ALT 19 12/16/2018 AST 18 03/03/2023 AST 21 12/16/2018 ALKPHOS 63 03/03/2023 ALKPHOS 89 12/16/2018 BILITOTAL 0.4 03/03/2023 BILITOTAL 0.4 12/16/2018 LDH 151 03/03/2023 LDH 148 12/16/2018 CALCIUM 9.4 03/03/2023 CALCIUM 9.7 12/16/2018 Lab Results Component Value Date TP 7.6 03/03/2023 TP 7.9 12/16/2018 ALBUMIN 4.5 03/03/2023 ALBUMIN 4.5 12/16/2018 Mammogram 02/07/22: CT chest 01/25/20: CT abd/pelvis 01/25/20: MRI brain 01/25/20: Assessment/Plan: Gwen nelson is a 38 y.o. 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 Melanoma: [id number] Stage IIIA Treatment: s/p primary excision and complete lymph node dissection X 2. Labs reviewed and physical exam completed. She has no evidence of recurrent disease at this time, and will remain on surveillance. Patient presents clinically well. Discussed visiting primary care doctor at least once a year. Zoloft prescription ordered. Labs were reviewed and physical exam completed. She has no evidence of recurrent disease at this time and will remain on surveillance 03/04/22. Scans: CT (12/15/17) were reviewed, and were DA. Plan for yearly scans, however this was deniend by her insurance company in 02/2021. At this time, we will plan for scans if clinically indicated. Psychosocial: During clinic 03/06/21, patient reports running out of Zoloft 50 mg daily about 2 months previous. She and her have noticed increased anxiety and some depression symptoms since stopping the Zoloft, and she would like to restart this. DS=20. Prescription sent electronically to the patient's pharmacy for same dosage. Patient education: We did review with the patient the importance of continuing with her monthly skin self evaluations. We did review with the patient the importance of continuing to work with her PCP on her routine health care needs. She should continue to see dermatology for full body skin exams at least annually as recommended. We did review with the patient the importance of sun protection strategies including clothing, avoidance of the sun during peak hours, sunblock, sunglasses, and hats. RTC: 1 year with serologies documented in this encounter [facility] 03-03-2023 Instructions Sharon Rogers RN - 03/03/2023 11:40 AM EDT Return to clinic : RTC 1 year with labs Provider: Dr Diana Labs: yes Scans: none Treatment: none Referrals: none Contacting Our Office For any questions or concerns related to your oncology care that need addressed before your next scheduled visit please call our clinic office at [phone]. For any symptom management please call our office to directly speak with a nurse and refrain from using [facility] MyChart, as we may need additional details regarding your symptoms. You may utilize [facility] MyChart for non-urgent questions. These messages are not checked on evenings, weekends, and holidays. We may ask you to send pictures of rashes or skin changes through [facility]. Clinic staff nurses are available to answer your call from 8:00 AM to 4:[address] any time sensitive calls before 4:00 PM, or as early in the day as possible, so we have enough time to meet your needs. Later calls may not be answered until the next business day. After business hours and on holidays and weekends, you may use the same phone number for concerns, you will be connected with a [facility] Nurse in our after hours call center. In case of a medical emergency please call 911. Our office fax number is [phone] Preparing for your next clinic visit Please make a list of non-urgent questions, concerns, and medication refills (that are prescribed by your oncologist) to bring with you to your next scheduled appointment. Please bring an updated list of medications you are currently taking including the dose and how often you are taking it. If you are completing outside labs and scans make sure to bring a CD with the images and any results, also ask that the outside facility faxes the results [phone] If you have been hospitalized and do not have a follow-up appointment with our office, please call to schedule at [phone]. documented in this encounter [facility] 06-30-2022 Note HNO ID: [id number] Author: Ita Ramos APRN.PRODUCTION OPERATIONS MANAGER Service: ? Author Type: Nurse Practitioner Type: Progress Notes Filed: 06/30/2022 10:34 AM Note Text: Subjective The history is provided by the patient. No snowboard designer was used. HPI Gwen Nelson is a 37 year old female who presents today for CC of worsening sore throat since . She is also having ear pain and sinus pressure and congestion. She has used nyquil, hot tea, tylenol without relief. She denies any known exposure to strep or covid, children have a cough. BP 128/76 Pulse 103 Temp 36.6 ?C (97.8 ?F) Resp 16 Wt 99 kg (218 lb 3.2 oz) LMP 07/08/2016 (Approximate) SpO2 99% BMI 35.49 kg/m? Social History Tobacco Use Smoking status: Never Smokeless tobacco: Never Substance Use Topics Alcohol use: Yes Comment: Occasionally Drug use: No PAST MEDICAL HISTORY Diagnosis Date Childhood asthma NO INHALER SINCE AGE 16 Depression 04/11/2014 Malignant melanoma (HCC) stage IIIa, [facility] I have confirmed and edited as necessary, the [facility] Sore t Review of Systems Constitutional: Negative for chills, fever and malaise/fatigue. HENT: Positive for congestion, ear pain, sinus pain and sore throat. Respiratory: Negative for cough, sputum production, shortness of breath and wheezing. Cardiovascular: Negative for chest pain. Gastrointestinal: Negative for abdominal pain, diarrhea, nausea and vomiting. Musculoskeletal: Negative for myalgias. Neurological: Negative for headaches. Objective Physical Exam Vitals and nursing note reviewed. HENT: Head: Normocephalic and atraumatic. Right Ear: Tympanic membrane, ear canal and external ear normal. Left Ear: Tympanic membrane, ear canal and external ear normal. Nose: No mucosal edema, congestion or rhinorrhea. Right Sinus: No maxillary sinus tenderness or frontal sinus tenderness. Left Sinus: No maxillary sinus tenderness or frontal sinus tenderness. Mouth/Throat: Pharynx: Uvula midline. Oropharyngeal exudate and posterior oropharyngeal erythema present. Cardiovascular: Rate and Rhythm: Normal rate and regular rhythm. Heart sounds: Normal heart sounds. Pulmonary: Effort: Pulmonary effort is normal. Breath sounds: Normal breath sounds. Lymphadenopathy: Head: Right side of head: No submental, submandibular or tonsillar adenopathy. Left side of head: No submental, submandibular or tonsillar adenopathy. Cervical: No cervical adenopathy. Skin: General: Skin is warm and dry. Neurological: Mental Status: She is alert. Psychiatric: Mood and Affect: Affect normal. ASSESSMENT/PLAN: 1. Sore throat - ICD9: 462, ICD10: J02.9 (primary diagnosis) - suspect viral - Alere Strep Test negative, no culture pending - STREP A MOLECULAR (POC) 2. URI, acute - ICD9: 465.9, ICD10: J06.9 - Discussed viral etiology and rationale for treatment. - Symptomatic treatment with prn analgesia - Supportive care with fluids and rest Diagnosis and treatment plan were discussed and questions were answered to the patient's satisfaction. Pt acknowledged understanding of concepts and follow up plan. Specific signs and symptoms that would indicate the need for higher level of care were discussed in detail warranting prompt ER evaluation. Ita Raoms APRN.CNP [facility] 06-30-2022 Instructions Ita Ramos APRN.CNP - 06/30/2022 10:21 AM EDT Strep is negative Rest, increase water intake Tylenol as needed for fever or pain. Salt water gargles, chloraseptic spray or lozenges as needed for sore throat. Warm beverages, honey. Nasal saline spray as needed Cool mist humidifier at night * Prednisone 40 mg (2 tablets) per day for 3 days, take in morning or early in day * Do not NSAIDs during this 5 day course (ibuprofen, naproxen, Motrin, Aleve, Advil) Tylenol only during prednisone use * Follow up with primary care provider if no improvement with treatment * Seek medical care immediately, call 911, go to ER if you have chest pain, difficulty breathing, shortness of breath, inability to swallow. documented in this encounter [facility] 06-30-2022 History of Present illness Narrative Subjective The history is provided by the patient. No snowboard designer was used. HPI Gwen Nelson is a 37 year old female who presents today for CC of worsening sore throat since . She is also having ear pain and sinus pressure and congestion. She has used nyquil, hot tea, tylenol without relief. She denies any known exposure to strep or covid, children have a cough. BP 128/76 Pulse 103 Temp 36.6 C (97.8 F) Resp 16 Wt 99 kg (218 lb 3.2 oz) LMP 07/08/2016 (Approximate) SpO2 99% BMI 35.49 kg/m Social History Tobacco Use Smoking status: Never Smokeless tobacco: Never Substance Use Topics Alcohol use: Yes Comment: Occasionally Drug use: No PAST MEDICAL HISTORY Diagnosis Date Childhood asthma NO INHALER SINCE AGE 16 Depression 04/11/2014 Malignant melanoma (HCC) stage IIIa, [facility] I have confirmed and edited as necessary, the [facility] Sore t Review of Systems Constitutional: Negative for chills, fever and malaise/fatigue. HENT: Positive for congestion, ear pain, sinus pain and sore throat. Respiratory: Negative for cough, sputum production, shortness of breath and wheezing. Cardiovascular: Negative for chest pain. Gastrointestinal: Negative for abdominal pain, diarrhea, nausea and vomiting. Musculoskeletal: Negative for myalgias. Neurological: Negative for headaches. Objective Physical Exam Vitals and nursing note reviewed. HENT: Head: Normocephalic and atraumatic. Right Ear: Tympanic membrane, ear canal and external ear normal. Left Ear: Tympanic membrane, ear canal and external ear normal. Nose: No mucosal edema, congestion or rhinorrhea. Right Sinus: No maxillary sinus tenderness or frontal sinus tenderness. Left Sinus: No maxillary sinus tenderness or frontal sinus tenderness. Mouth/Throat: Pharynx: Uvula midline. Oropharyngeal exudate and posterior oropharyngeal erythema present. Cardiovascular: Rate and Rhythm: Normal rate and regular rhythm. Heart sounds: Normal heart sounds. Pulmonary: Effort: Pulmonary effort is normal. Breath sounds: Normal breath sounds. Lymphadenopathy: Head: Right side of head: No submental, submandibular or tonsillar adenopathy. Left side of head: No submental, submandibular or tonsillar adenopathy. Cervical: No cervical adenopathy. Skin: General: Skin is warm and dry. Neurological: Mental Status: She is alert. Psychiatric: Mood and Affect: Affect normal. ASSESSMENT/PLAN: 1. Sore throat - ICD9: 462, ICD10: J02.9 (primary diagnosis) - suspect viral - Alere Strep Test negative, no culture pending - STREP A MOLECULAR (POC) 2. URI, acute - ICD9: 465.9, ICD10: J06.9 - Discussed viral etiology and rationale for treatment. - Symptomatic treatment with prn analgesia - Supportive care with fluids and rest Diagnosis and treatment plan were discussed and questions were answered to the patient's satisfaction. Pt acknowledged understanding of concepts and follow up plan. Specific signs and symptoms that would indicate the need for higher level of care were discussed in detail warranting prompt ER evaluation. Ita Ramos APRN.CNP documented in this encounter [facility] 03-04-2022 History of Present illness Narrative Images from the original note were not included. MELANOMA [facility]ICAL [facility]COL[facility]Y CLINIC NOTE Mrs. Nelson is 37 y.o. 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 Chief Complaint Patient presents with Melanoma Malignant melanoma of back History of Present Illness: Current therapy: Observation, s/p resection Interval history: Ms. Nelson presents with her for a surveillance visit after completion of labs. She reports she is feeling well and denies any concerns. She is scheduled to see dermatology in March and denies any concern for suspicious cutaneous lesions. She feels her mood is well controlled. She denies fever, chills, night sweats, headaches, vision change, hearing loss, dysphagia, cough, shortness of breath, chest pain, palpitations, nausea, vomiting, diarrhea, constipation, abdominal pain, melena, hematochezia, rash, urination pattern change, hematuria, myalgia, muscle weakness, arthralgia, or mood change. Melanoma history: She has been undergoing yearly dermatological examination since 2007 and during her first noticed a change in her mole. She brought it up to her PCP 06/2013 who referred her to a electrical apprentice. She delivered a healthy child 12/2013, then underwent a biopsy on 11/16/2013 of left mid-back with biopsy ([id number]), reviewed at [facility] on 03/25/2014. Patient Active Problem List Diagnosis Date Noted Obesity: body mass index of 35.0-39.9 03/06/2021 Allergy to IVP dye 05/16/[address] scan 02/29/2016 Liver lesion 02/29/2016 Observation for suspected malignant neoplasm 03/13/2015 Malignant melanoma of back 09/07/2014 11/16/2013 left mid-back, biopsy ([id number]), reviewed at [facility] on 03/25/2014- malignant melanoma, possibly nodular type, tumor thickness at least 1.78 mm, Moose IV, no ulceration, peripheral and deep margins involved by invasive melanoma, mitotic count is 1/mm2, vertical growth phase present 11/25/2013 biopsy ([id number])- mildly dysplastic compound nevus, inked margins free in planes of sections examined 12/08/2013 skin, left upper back, excision & left axillary SLN lymphadenectomy ([id number]): o 03/21/14 pathology was reviewed at [facility] ([id number]) o Wide excision: scar, inked margins are free in planes of sections examined. o [place] lymph node, left axilla, lymphadenectomy: focus of HMB-45 and MART - 1- positive cells. Note: microscopic examination reveal an enlarged lymph node. Just under the capsule, there is a focus of HMB-45 and MART - 1- positive cells. These cell are not seen on H/T/E or S-100 or SOX-10 stains. These cells are compared with the original melanoma biopsy is similar and these findings are consistent with a small focus of metastatic melanoma 03/14/2014 PET- negative 04/11/2014 Dr. José recommend complete torey dissection 05/05/2014 completed left axillary lymph node dissection-34 lymph nodes negative for metastatic disease (0/34) 11/04/14 right mid upper back ([id number]): mildly dysplastic compound nevus o Right lateral upper back: Compound nevus 02/17/15 skin biopsies ([id number]) Left lalteral abdomen: Compound nevus Right 2nd toe: Acral compound nevus Left lower abdomen: Moderately dysplastic junctional nevus. 03/21/15 wide excision ([id number]): A. Left lower abdomen: Negative for residual neoplasm. B. Right mid upper back: Focal recurrent nevus; negative margins. 04/12/16 mid chest, shave removal ([id number]): Atypical nevi. Past Medical History: Past Medical History: Diagnosis Date Malignant melanoma of back 09/07/2014 11/16/2013 left mid-back, biopsy ([id number]), reviewed at [facility] on 03/25/2014- malignant melanoma, possibly nodular type, tumor thickness at least 1.78 mm, Moose IV, no ulceration, peripheral and deep margins involved by invasive melanoma, mitotic count is 1/mm2, vertical growth phase present 11/25/2013 biopsy ([id number])- mildly dysplastic compound nevus, inked margins free in planes Past Surgical History: Past Surgical History: Procedure Laterality Date DILATION AND CURETTAGE 10/10/2017 [facility]; D&C for miscarriage LYMPH NODE DISSECTION Left 04/2014 axilla BIOPSY Left 11/16/2013 left mid-back postive for melanoma BX LYMPH NODE Right 11/2013 axilla APPENDECTOMY 2002 FOOT SURGERY Left Medications/Allergies: Medications: Current Outpatient Medications Medication Sig Ascorbic Acid (VITAMIN C PO) take 1,000 mg by mouth daily. sertraline 50 MG tablet TAKE 1 TABLET DAILY Allergies: Allergies Allergen Reactions Ivp Dye, Iodine Containing Rash Social History/ Family History: She reports that she has never smoked. She has never used smokeless tobacco. She reports current alcohol use. She reports that she does not use drugs. Family History Problem Relation Age of Onset Hypertension Father Other - Specify Father afib Lipid Disorder Father Heart Disease - Other Father quad bypass Other - Specify Mother spinocerebellar ataxia Cancer Maternal Grandmother myeloma Family Status Relation Name Status Father Alive Mother Alive Brother Alive Hansel Alive MGM (Not Specified) Review of Systems: Review of systems was performed with the patient at today's visit and is negative except for those items mentioned in the interval history. Physical Examination: Blood pressure 144/78, pulse 79, temperature 98 F (36.7 C), temperature source Oral, resp. rate 16, height 1.684 m (5' 6.3 ), weight 100 kg (220 lb 8 oz), SpO2 99 %, currently . PS= 0 DS=20 (03/06/21), 15 (03/04/22) General The patient is alert and oriented x 3, not in acute distress, answering the questions appropriately. HEENT Mucous membranes moist. No mucositis or thrush. Lungs Clear to auscultation bilaterally. No wheezes, rales or rhonchi. Cardiac S1, S2 normal. Rate and rhythm regular. No murmur. GI Abdomen is soft, nontender, nondistended, positive bowel sounds. No hepatomegaly. Extremities Mild edema localized at right calf when compared to the left, no tenderness to palpation, no erythema. Neurological Exam Essentially unremarkable. No focal neruological deficit. Muscle strength 5/5 in all extremities and symmetric. Skin Skin is dry and warm. Right upper back incision is well healed, no concern for disease recurrence. Lymph Nodes No axillary or inguinal adenopathy. Psychiatric Appropriate for age and clinical situation. Serum Labs/Scans: Lab Results Component Value Date WBC 6.57 03/04/2022 HGB 14.8 03/04/2022 HCT 42.5 03/04/2022 PLATELET 192 03/04/2022 MCV 84.2 03/04/2022 Lab Results Component Value Date SODIUM 138 03/04/2022 SODIUM 140 12/16/2018 POTASSIUM 4.2 03/04/2022 POTASSIUM 4.2 12/16/2018 CHLORIDE 105 03/04/2022 CHLORIDE 108 12/16/2018 CO2 29 03/04/2022 CO2 22 12/16/2018 BUN 12 03/04/2022 BUN 18 12/16/2018 CREATSERUM 0.66 03/04/2022 CREATSERUM 0.69 12/16/2018 CREATSERUM 0.92 12/15/2017 Lab Results Component Value Date ALT 13 03/04/2022 ALT 19 12/16/2018 AST 15 03/04/2022 AST 21 12/16/2018 ALKPHOS 56 03/04/2022 ALKPHOS 89 12/16/2018 BILITOTAL 0.7 03/04/2022 BILITOTAL 0.4 12/16/2018 LDH 137 03/04/2022 LDH 148 12/16/2018 CALCIUM 9.6 03/04/2022 CALCIUM 9.7 12/16/2018 Lab Results Component Value Date TP 7.4 03/04/2022 TP 7.9 12/16/2018 ALBUMIN 4.5 03/04/2022 ALBUMIN 4.5 12/16/2018 Mammogram 02/07/22: CT chest 01/25/20: CT abd/pelvis 01/25/20: MRI brain 01/25/20: Assessment/Plan: Gwen nelson is a 37 y.o. 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 Melanoma: [id number] Stage IIIA Patient was seen as a shared visit with Dr. Felicitas Puckett. Please see her clinic note on 03/04/22 for complete impression and plan. Pepper Patrick MS, RETICLE PRINTER-KAVITHA, AOCNP Nurse Practitioner Melanoma & Other Cutaneous Malignancies [facility] I independently performed a history and physical examination of the patient. I reviewed and confirmed the HPI, PMH, family history, social history, medications and allergies, review of systems, and discussed management with the SHUTTLE CAR OPERATOR. Refer to the SHUTTLE CAR OPERATOR note for details. Review of systems is as noted in SHUTTLE CAR OPERATOR note, in medical record, and is otherwise unremarkable. I reviewed the scans and reports, labs and medical records. I agree with the documented findings and plan of care. Gwne Nelson is a 37 y.o. female who carries a diagnosis of Melanoma. Patient presents today for an evaluation while on active surveillance. Patient feels well overall. She states she has a electrical apprentice appointment coming up on 04/22/22. Patient follows up with her GYNO yearly. Patient is still currently taking Zoloft. Denies any headaches, nausea, SOB, cough, night sweats, abdominal discomfort, constipation, diarrhea, change in appetite, lack of energy, new rash/lesions, myalgias, arthralgias, weakness, numbness, or tingling. Vitals: 03/04/22 1116 BP: 144/78 Pulse: 79 Resp: 16 Temp: 98 degrees F (36.7 degrees C) TempSrc: Oral SpO2: 99% Weight: 100 kg (220 lb 8 oz) Height: 1.684 m (5' 6.3 ) SC= 15 (03/04/22) Exam was unremarkable for organomegaly, extraneous lung sounds, lymphadenopathy, neurologic deficit, or rash. Reflexes 0. Scans: Mammography 02/07/22: Stable bilateral mammogram. Labs: Stable, LDH 137 U/L A/P: Melanoma: [id number] Stage IIIA Treatment: s/p primary excision and complete lymph node dissection X 2. Labs reviewed and physical exam completed. She has no evidence of recurrent disease at this time, and will remain on surveillance. Patient presents clinically well. Discussed visiting primary care doctor at least once a year. Zoloft prescription ordered. Labs were reviewed and physical exam completed. She has no evidence of recurrent disease at this time and will remain on surveillance 03/04/22. Scans: CT (12/15/17) were reviewed, and were DA. Plan for yearly scans, however this was deniend by her insurance company in 02/2021. At this time, we will plan for scans if clinically indicated. Psychosocial: During clinic 03/06/21, patient reports running out of Zoloft 50 mg daily about 2 months ago. She and her have noticed increased anxiety and some depression symptoms since stopping the Zoloft, and she would like to restart this. DS=20. Prescription sent electronically to the patient's pharmacy for same dosage. Patient education: We did review with the patient the importance of continuing with her monthly skin self evaluations. We did review with the patient the importance of continuing to work with her PCP on her routine health care needs. She should continue to see dermatology for full body skin exams at least annually as recommended. We did review with the patient the importance of sun protection strategies including clothing, avoidance of the sun during peak hours, sunblock, sunglasses, and hats. RTC: 1 year with serologies Documented by Scribe, Bindu Aguilar, for Dr. Felicitas Puckett on 03/04/22 12:35 PM. Parts of this note were written by Bindu Aguilar, acting as a scribe for Dr. Puckett. The note was ultimately edited by Dr. Puckett for accuracy. This note accurately reflects the work and decisions made by Dr. Puckett. I have reviewed the dictated documentation as scribed by Bindu and it accurately reflects the work performed and the decisions made. Felicitas Puckett MD, PhD supervisor of instruction documented in this encounter [facility] 03-04-2022 Instructions Sharon Gonsalves RN - 03/04/2022 10:39 AM EDT Images from the original note were not included. Return to clinic : RTC 1 year with labs Provider: Dr Diana Gates: yes My name is VARSHA Ferrera, RN, and I am your nurse in clinic today. For any questions or concerns after your clinic visit please call the telephone triage nurses at [phone]. Contacting Our Office Clinic staff nurses are available to answer your call from 8:00 am to 4:[address] any time sensitive calls before 4:00, or as early in the day as possible, so we have enough time to meet your needs. Later calls may not be answered until the next business day. After business hours you may use the same phone number for concerns, you will be connected with a [facility] nurse in our clinical call center. In case of a medical emergency please call 911. If you need to fax records from another physician to our office please fax to [phone]. Coronavirus Information Please call and notify our office if you have been tested for Covid-19. Please call if you have been exposed to someone with Covid-19. What are the symptoms? Coronaviruses typically causes symptoms that are similar to influenza ( the flu ) and other viral illnesses. The most common symptoms of COVID-19 include: Fever greater than 100.4 degrees Fahrenheit or chills Muscle or body aches Cough Fatigue Shortness of breath or difficulty breathing Headache New loss of taste or smell Sore Throat Congestion or runny nose Nausea or vomiting Diarrhea Anyone can have mild to severe symptoms of COVID. However, people at highest risk for severe illness from COVID-19 include older adults and people of any age with certain underlying medical conditions like cancer, chronic kidney disease, immunocompromised state from solid organ transplant, obesity (body mass index of 30 or higher), serious heart conditions (heart failure, coronary artery disease or cardiomyopathies), sickle cell disease, type 2 diabetes mellitus. People with the following conditions might be at an increased risk of severe illness from COVID19: moderate to severe asthma, cerebrovascular disease, cystic fibrosis, hypertension, bone marrow transplant, immune deficiencies, HIV, use of corticosteroids or other immune weakening medicines, neurological disease such as dementia, liver disease, , pulmonary fibrosis, thalassemia, and type 1 diabetes. How does COVID-19 spread? Based on current CDC guidance, mzpedy-wo-xkuanm spread most likely occurs through respiratory droplets between close contacts, similar to influenza and other respiratory viruses. Prolonged exposure within six feet of an infected person would put you at risk for getting the virus. The period from exposure to symptom onset is believed to be within 14 days. For example, if a person returned from an outbreak area more than 14 days ago, the person would be outside the window for disease onset. What do I need to do? The CDC advises, and the [facility] mandates wearing a mask to avoid spreading your own respiratory illness to others. Wear a mask to keep your nose and mouth covered when you are outside of your home, and when around others. Stay at least 6 feet (about 2 arms length) from other people who are not from your household. It is important to do this everywhere, both indoors and outdoors. In general, continue practicing routine hygiene etiquette to prevent the spread of infection: Stay home when you are sick Avoid close contact with people who are sick. Get adequate sleep and eat well-balanced meals Cover your mouth and nose with a tissue or sleeve when you sneeze or cough Wash your hands often with soap and water (20 seconds or longer) or use alcohol hand rub Avoid touching your eyes, nose or mouth with unwashed hands or after touching surfaces Clean and disinfect high-touch surfaces often Anyone who is seriously ill should seek medical advice from a doctor or emergency department Should I travel out of the country? If you have international travel scheduled in the coming weeks - especially to affected countries - you should monitor travel warnings carefully prior to departure. The CDC and the Department of State maintain travel alerts that can help you make the decision about going on your trip. Below are links to [facility], [place] Department of Health and [facility] that contain relevant travel information. [email or web address], https://coronavirus.[place].gov/wps/ portal/gov/covid-19/families-and- individuals/EEAZQ-95-Cxmfki-Advis ory/ZJMNX-82-Zsrjca-Advisory, AND https://coronavirus.[place].gov/wps/ portal/gov/covid-19/families-and- individuals/YFLMN-49-Ydmznr-Advis ory/EKWIA-11-Hgekgo-Advisory Hand Washing - [facility] When you are sick or have an injury, you are at a greater risk for an infection. One of the most important things you can do to protect yourself and reduce the risk of infection is to wash your hands properly and often. It also is important for your caregivers and visitors to wash their hands. Ask your health care team, caregivers, and visitors to wash their hands when they come into the room. It is important for anyone who may touch you, or the items used for your care, to wash their hands. Many home care procedures are done by you or a family member. Hand washing is just as important at home to help reduce the risk of infection and should be done, even if you use gloves to complete the care. How to Wash Your Hands Turn on the water to warm. Adjust the flow so the water does not splash. Wet your hands. Rub soap over your wet hands. It is best to use liquid soap. Lather your palms and the back of your hands and wrists. Rub your hands together on all sides, between your fingers and around your nails for at least 20 seconds. You may use a nail brush to clean under and around your nails. Rinse your hands well with warm water, leave the water running. Dry your hands with a paper towel or clean towel. Use the towel in your hand to turn off the water. This keeps your clean hand from touching the faucet handle, which is not clean. Alcohol Hand Rub Alcohol hand rub, also called hand chemical packager, can be used instead of soap and water if your hands do not look dirty or soiled. To clean your hands with the alcohol rub, use enough to cover the front and back of both hands and all your fingers. Rub the chemical packager briskly over the front and back of your hands and between your fingers. Do this for at least 20 seconds until your hands are dry. February 21, 2016. The [facility] and [employer] [place]. This handout is for informational purposes only. Talk with your doctor or health care team if you have any questions about your care. For more health information, call the [facility] at [phone] or visit [email or web address] documented in this encounter [facility] 04-17-2021 History of Present illness Narrative Pt called and left message with late cancellation notice. She states she will call back to re schedule at a later date. Samantha Sandra RD, EQUIPMENT SERVICE ENGINEER, LD documented in this encounter [facility] documented as of this encounter (statuses as of 06/30/2022) [facility] 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, except scrotum [facility] Diagnosis 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, except scrotum Encounter for follow-up surveillance of melanoma [facility] Diagnosis Sore throat- Primary Acute pharyngitis URI, acute Acute upper respiratory infections of unspecified site [facility] 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, except scrotum Encounter for follow-up surveillance of melanoma documented in this encounter [facility] Reason for Referral Specialty Diagnoses / Procedures Referred By Dexter green Referred To Contact Diagnoses Malignant melanoma of back Procedures QUESTIONNAIRE SERIES Pepper Patrick, RETICLE PRINTER-PRODUCTION OPERATIONS MANAGER [address] [id number] Referral ID Status Reason Start Date Expiration Date V isits Requested Visits Authorized [id number] New Request 03/04/2022 03/29/2023 1 1 Summary Purpose Family History No Family History Records FoundNo Family History Records Found Advance Directives No Advanced Directives Records FoundNo Advanced Directives Records Found Additional Source Comments Reason for Visit (unrecogniz ed section and content) Specialty Diagnoses / Procedures Referred By Dexter green Referred To Contact Registered Dietitian / Nutrition and Dietetics Diagnoses f/u for desired wt loss Procedures RETURN PATIENT Felicitas Puckett MD, PhD [facility] Ubaldo Khoury [address] [place] [id number] Samantha Sandra, RD [address] [place] [address] Referral ID Status Reason Start Date Expiration Date V isits Requested Visits Authorized [id number] New Request 04/17/2021 05/12/2022 1 1 Reason Comments Melanoma Malignant melanoma o f back Reason Comments Pain, Throat Bilateral ear pain r ated 5, x4 days. 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 Start Date End Date Flora Hart PCP - General 04/05/05 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 Start Date End Date Flora Hart MD [address] [place] [phone] PCP - General Family Medicine 09/07/14 [place] [address] [place] [address] Consulting Physician Hematology 09/07/14 Kenna Drake MD [address] [place] [address] Dermatology 12/08/14 Felicitas Puckett MD, PhD [address] [place] [address] [place] [address] Oncologist Medical Oncology 07/02/04 Source Comments (unrecognize d section and content) In the event this informatio n is protected by the Federal Confidentiality of Alcohol and Drug Abuse Patient Records regulations: The Federal rules restrict any use of the information to criminally investigate or prosecute any alcohol or drug abuse patient.[facility] INFORMATION SOURCE (unrecogn ized section and content) DATE CREATED AUTHOR AUTHOR'S AYSE INGRAM 03/11/2023 [facility] FOR RECORDS PERTAINING TO PATIENTS WHO ARE OR HAVE BEEN ENROLLED IN A CHEMICAL DEPENDENCY/SUBSTANCEABUSE PROGRAM, SOME INFORMATION MAY BE OMITTED. This clinical summary was aggregated from multiple sources. Caution should be exercised in using it in the provision of clinical care. This summary normalizes information from multiple sources, and as a consequence, information in this document may materially change the coding, format and clinical context of patient data. In addition, data may be omitted in some cases. CLINICAL DECISIONS SHOULD BE BASED ON THE PRIMARY CLINICAL RECORDS. [email or web address] provides no warranty or guarantee of the accuracy or completeness of information in this document.
[2023-09-23 17:07] LABS: HPV APTIMA, High Risk Negative (Negative)
== END | disposition home or self-care (01) ==
PROVIDERS: PCP Family Medicine; Visit Provider Nurse Practitioner Women's Health
DX: Z12.4 Encounter for screening for malignant neoplasm of cervix (principal)
CPT/HCPCS: 87624; 88175; G0145

== ENCOUNTER → 2024-02-19 | Outpatient (CLI) | payer OTHER, SELFPAY ==
--- NOTE | 2024-02-19 12:42 | BI_ITS ---
MAMMOGRAPHY - BILATERAL SCREENING REASON FOR EXAM: Female, 39 years old. Routine annual screening examination. PERTINENT HISTORY: Non-contributory. TECHNIQUE: Digital bilateral breast kimo (3D mammographic acquisition) in the CC and MLO projections. 2-D mediolateral oblique (MLO) and craniocaudad (CC) views of both breasts were obtained. CAD: Full Field Digital Mammography with Computer Added Detection was performed. COMPARISON: Comparison is made with prior study February 10, 2023 and February 07, 2022. FINDINGS: Breast Composition: The breasts are extremely dense, which lowers the sensitivity of mammography. There are no dominant masses or suspicious calcifications. No other significant abnormalities are identified. There has been no significant change since the prior study. BI/SCRN MAMM (CAD)W/KIMO BILAT IMPRESSION: Stable bilateral screening mammogram. Yearly follow-up mammogram recommended. (A) ASSESSMENT CATEGORY: BIRADS Category 1: Negative. A letter regarding these results will be sent to the patient by the facility within 30 days. Approximately 10% of breast cancers are not detected by mammography. A normal mammogram should not delay biopsy of a clinically suspicious abnormality. [id number] Electronically Signed: Kamlesh Quintanilla MD at 13:34 EDT ,
== END | disposition home or self-care (01) ==
PROVIDERS: PCP Family Medicine; Referring Provider Nurse Practitioner Women's Health; Visit Provider Nurse Practitioner Women's Health
DX: Z12.31 Encounter for screening mammogram for malignant neoplasm of breast (principal)
CPT/HCPCS: 77063; 77067

== ENCOUNTER → 2025-05-13 | Outpatient (CLI) | payer OTHER, SELFPAY ==
--- NOTE | 2025-05-13 07:30 | BI_ITS ---
EXAM: SCRN MAMM (CAD)W/KIMO BILAT DATE: 05/13/2025 CLINICAL HISTORY: F, Age 40 y/o , SCREEN FOR BREAST CANCER TECHNIQUE: Procedure Code: [id number] Modality: MG Procedure: SCRN MAMM (CAD)W/KIMO BILAT COMPARISON: Prior exam(s) were compared FINDINGS: TISSUE DENSITY: The breasts are heterogeneously dense, which may obscure small masses. Bilateral Breast Mammographic Findings: No suspicious masses, calcifications or other abnormalities are identified. BI/SCRN MAMM (CAD)W/KIMO BILAT IMPRESSION: No mammographic evidence of malignancy in either breast OVERALL FINAL ASSESSMENT BI-RADS 1: NEGATIVE. RECOMMENDATION: Routine annual follow-up in 1 Year A letter with findings and recommendations will be mailed to the patient. Reading Location: [id number]
--- OUTSIDE RECORDS SUMMARY | 2025-05-13 07:46 | XMS RPT_ITS | CCD ---
Author Organization [facility] Care Team Providers Care Engine Repairer Service Name Role Phone Flora Delaney MD Primary Care Provider Rosemary Peña MD, Royal Edmond Unavailable Vidal BYRD, Kenna Goodman Unavailable Italo BYRD, PhD, Felicitas L Unavailable Dr. Flora Delaney Primary Care Provider [phone]. Flora Delaney Referring Provider [phone] JESSIE Ferguson NP Attending Provider Italo BYRD, PhD, Felicitas L Unavailable [phone] Flora Delaney Primary Care Provider Flora Delaney MD Primary Care Provider Rosemary Peña MD, Royal Edmond Unavailable Kenna Drake MD Unavailable Italo BYRD, PhD, Felicitas L Unavailable Dr. Flora Delaney Primary Care Provider Dr. Flora Delaney Referring Provider JESSIE Garvey Attending Provider JESSIE Ferguson NP Attending Provider Flora Delaney Primary Care Provider FLORA DELANEY Primary Care Unavailable TESTRAKE, GAIL Referring Unavailable TESTJACE, GAIL Attending Unavailable FLORA DELANEY Primary Care Unavailable TESTRAKE, GAIL Referring Unavailable FLORA DELANEY Primary Care Unavailable Flora Delaney MD Primary Care Provider Rosemary Peña Jr., Jr., MD, Royal Edmond Unavailable IFEOMA LARSON Referring Unavailable IFEOMA LARSON Attending Unavailable JOLLIFF, FLORA S Primary Care Unavailable JOLLIFF, FLORA S Primary Care Unavailable FELICITAS PUCKETT Attending Unavailable ROYAL JOSÉ JR. Referring Unavailable FELICITAS PUCKETT Referring Unavailable FELICITAS PUCKETT Attending Unavailable ALISSAIFF, FLORA S Primary Care Unavailable ULYSSES PUCKETTI Germain Referring Unavailable SHYAM MONTES Attending Unavailable ALISSAIFF, FLORA S Primary Care Unavailable ITALO FELICITAS L Referring Unavailable IFEOMA LARSON Attending Unavailable TANNER, FLORA S Primary Care Unavailable Jolliff, Flora S Referring Unavailable Jolliff, Flora S Primary Care Unavailable Tamy Savage Attending Unavailable Tamy Savage Attending Unavailable Jinalliff, Flora S Primary Care Unavailable Tamy Savage Referring Unavailable Allergies Allergy Classification Reported Allergen(s) Allergy Type Date of Onset Reaction(s) Facility (9 sources) Diatrizoate Drug Allergy 6 Rash [facility] Work Phone: (2 sources) Iodine Drug Allergy 2 (IV DYE ONLY) [facility] (8 sources) Diatrizoic Acid; Translations: [DIATRIZOIC ACID] Propensity to adverse reactions to drug 6 [facility] (1 source) Iodine Drug Allergy 5 [facility] Repository Medications Current Medications Medication Drug Class(es) Dates Sig (Normalized) Sig (Original) acetaminophen 325 mg oral capsule (1 source) Start: 12-22-2022 take 1 capsule by mouth every four hours Acetaminophen (Tylenol) 325 mg capsule Active 325 MG PO Q4H December 21, 2022 11:00pm Calcium Carbonate / vitamin D3 (7 sources) CALCIUM CARBONATE/VITAMIN D3 (VITAMIN D-3 ORAL) Take by mouth. Active CALCIUM CARBONAT E/VITAMIN D3 (VITAMIN D-3 ORAL) Take by mouth. 0 Active Comment on above: Take by mouth. Desogestrel / Ethinyl Estradiol (7 sources) Progestin, Estrogen Start: 07-18-2016 take 1 tablet by mouth once daily, then take 0.15 tablet by mouth once Desogestrel-Ethinyl Estradiol (APRI) 0.15-0.03 mg per tablet Take 1 tablet by mouth once daily. 3 Package 4 07/18/2016 Active Comment on above: Take 1 tablet by angi once daily. etonogestrel/ethinyl estradiol (NUVARING VAGINAL) (7 sources) etonogestrel/eth iny l estradiol (NUVARING VAGINAL) Use vaginally. Active etonogestrel/eth inyl estradiol (NUVARING VAGINAL) Use vaginally. 0 Active Comment on above: Use vaginally. levonorgestrel 0.499939 mg/hr intrauterine system (5 sources) Progestin, Progestin-containing Intrauterine Device Start: 09-18-2023 Levonorgestrel (Liletta) 20.4 mcg/24 hrs (8 yrs) 52 mg intrauterine device Active 1 DEVICE INTRA-UTER ONCE September 18, 2023 12:00am as a single dose Start: 08-30-2020 End: 08-30-2020 Levonorgestrel (Liletta) 20. 1 mcg/24 hrs (6 yrs) 52 mg intrauterine device Discontinued 1 DEVICE INTRA-UTER ONCE August 30, 2020 9:58am August 30, 2020 10:10am as a single dose Start: 11-30-2018 levonorgestrel 20 mcg/24 hours (6 yrs) 52 mg intrauterine device Active 1 INSERT INTRA-UTER ONCE November 30, 2018 8:36am Start: 11-30-2018 End: 11-30-2018 levonorgestrel 20 mcg/24 constanza rs (6 yrs) 52 mg intrauterine device Discontinued 1 INSERT INTRA-UTER ONCE November 30, 2018 8:36am November 30, 2018 8:50am MULTIVITAMIN ORAL (7 sources) MULTIVITAMIN ORA L Take by mouth. Active MULTIVITAMIN ORA L Take by mouth. 0 Active Comment on above: Take by mouth. predniSONE 20 mg oral tablet (1 source) Start: 2 End: 2 take 2 tablets by mouth once daily predniSONE (DELTASONE) 20 mg tablet Take 2 tablets by mouth once daily for 3 days. 6 tablet 0 06/30/2022 07/03/2022 Active Comment on above: Take 2 tablets by mo [facility] once daily for 3 days. 1 mg dose 1.5 ml semaglutide 1.34 mg/ml pen injector (4 sources) semaglutide (OZE MPI) 1 mg/0.75 ml subcutaneous pen injector Inject subcutaneously one time a week. Active SEMAGLUTIDE-WEIGHT MANAGEMENT SC (5 sources) SEMAGLUTIDE-WEIG HT MANAGEMENT SC Inject under the skin once a week. Active sertraline 50 mg oral tablet (20 sources) Serotonin Reuptake Inhibitor Start: Sertraline 50 MG tablet Indications: Depression, controlled TAKE 1 TABLET DAILY 90 tablet 3 12/03/2024 Active Start: 01-13-2024 take 1 tablet by angi th once daily Sertraline 50 MG tablet Indications: Depression, controlled Take 1 tablet by mouth daily. 90 tablet 3 01/13/2024 Active Start: 02-27-2017 End: 12-22-2022 take 1 tablet by mouth once daily sertraline (ZOLOFT) 50 mg tablet Take 1 tablet by mouth once daily. 90 tablet 1 02/27/2017 Active Comment on above: Take 1 tablet by angi once daily. Completed/Discontinued Medications Medication Drug Class(es) Dates Sig (Normalized) Sig (Original) amoxicillin 500 mg oral capsule (4 sources) Penicillin-class Antibacterial Start: 09-13-2023 End: 09-18-2023 take 500 mg by mouth twice daily Amoxicillin Discontinued 500 MG PO TWICE A DAY 10 September 13, 2023 12:00am September 18, 2023 12:05am Start: 12-22-2022 End: 01-01-2023 take 500 mg by mouth twice daily Amoxicillin Discontinued 500 MG PO TWICE A DAY 20 December 21, 2022 11:00pm December 31, 2022 11:04pm Start: 05-18-2018 End: 07-29-2018 take 250 mg by mouth three times daily Amoxicillin Discontinued 250 MG PO THREE TIMES A DAY May 18, 2018 10:03am July 29, 2018 9:21am amoxicillin 875 mg / clavulanate 125 mg oral tablet (3 sources) Penicillin-class Antibacterial Start: 03-09-2023 End: 03-16-2023 take 1 tablet by mouth twice daily Amoxicillin-Pot Clavulanate Discontinued 1 TABLET PO TWICE A DAY 14 March 08, 2023 11:00pm March 15, 2023 11:04pm Start: 10-09-2017 End: 10-28-2017 Amoxicillin-Pot Clavulanate Discontinued 1 EACH PO TWICE A DAY October 09, 2017 2:05pm October 28, 2017 4:54pm ascorbic acid 500 mg oral tablet (18 sources) Vitamin C Start: 10-08-2013 End: 09-09-2017 take 500 mg by mouth once daily Ascorbic Acid (Vitamin C) Discontinued 500 MG PO DAILY@0800 October 08, 2013 9:23pm September 09, 2017 11:45am take 1000 mg by mouth once daily Ascorbic Acid (VITAMIN C PO) take 1,000 mg by mouth daily. Active ASCORBIC ACID (V ITAMIN C ORAL) Take by mouth. Active ASCORBIC ACID (V ITAMIN C ORAL) Take by mouth. 0 Active Comment on above: Take by mouth. colistin 3 mg/ml / hydrocortisone 10 mg/ml / neomycin 3.3 mg/ml / thonzonium bromide 0.5 mg/ml otic suspension (1 source) Aminoglycoside Antibacterial, Corticosteroid Start : 03-09 End: 03-16 Mmhxjemq-Oqhhfe-Tu-T honzonium (Cortisporin-Tc) 3.3-3-10-0.5 mg/mL drops,suspension Discontinued 3 DRP OTIC THREE TIMES A DAY 10 7 March 08, 2023 11:00pm March 15, 2023 11:04pm docosahexaenoic acid 200 mg oral capsule (2 sources) Start : 02-17 End: 08-30 take 1 capsule by mouth once daily Docosahexaenoic Acid ( Dha) 200 mg capsule Discontinued 200 MG PO DAILY February 17, 2018 1:19pm August 30, 2020 9:54am Flucelvax Quad (PF) (flu vac qs 2017(4 yr up)CD(PF)) 60 mcg (15 mcg x (1 source) Start : 07-01 End: 07-01 inject 15 ug by intramuscular injection once Flucelvax Quad (PF) (flu vac qs 2017(4 yr up)CD(PF)) 60 mcg (15 mcg x Discontinued 60 MCG IM ONCE July 01, 2018 7:46am July 01, 2018 8:27am Gadopiclenol SOLN 1-25 mL (1 source) Start : 06-27 End: 06-27 1-25 mL, Intravenous, ONCE, 1 dose, On 06/27/24 at 1100 phentermine hydrochloride 37.5 mg oral capsule (11 sources) Sympathomimetic Amine Anorectic Start : 09-05 End: 03-09 take 1 capsule by mouth once daily 30 minutes after breakfast Phentermine (Adipex-P) 37.5 mg capsule Discontinued 37.5 MG PO DAILY October 30, 2022 3:41pm March 09, 2023 7:50am must administer 30 minutes before or 1-2 hours after breakfast 20 ml sodium chloride 9 mg/ml injection (1 source) Start : 06-27 End: 06-27 1-100 mL, Intravenous, ONCE NEEDED, 1 dose, Starting on 06/27/24 at 1051, Until 06/27/24 at 1053, Flush, MR Procedure Problems Active Problems Problem Classification Problem Date Documented Da te Episodic/Chronic Acquired foot deformities (4 sources) Acquired hallux limitus of left great toe; Translations: [Other deformities of toe(s) (acquired), left foot] Onset: 05-28-2024 04-20-2024 Episodic Anxiety disorders (3 sources) Anxiety; Translations: [Anxiety disorder, unspecified] 09-05-2021 Chronic Asthma (7 sources) Childhood asthma; Translations: [Unspecified asthma, uncomplicated] Onset: 03-08-2013 09-03-2021 Chronic Melanomas of skin (20 sources) Malignant melanoma of back; Translations: [Malignant melanoma of other part of trunk] Onset: 09-07-2014 Chronic Mood disorders (7 sources) Depressive disorder; Translations: [Depression] Onset: 04-11-2014 04-11-2014 Chronic Other aftercare (4 sources) H/O Malignant melanoma; Translations: [Encounter for follow-up examination after completed treatment for malignant neoplasm] Episodic Other complications of ; puerperium affecting management of mother (4 sources) Advanced maternal age ; Translations: [Advanced maternal age during ] 09-02-2018 Episodic Other complications of (2 sources) Missed miscarriage; Translations: [Missed ] 09-02-2018 Episodic Other complications of (4 sources) High risk ; Translations: [Supervision of high risk , unspecified, unspecified trimester] 09-02-2018 Episodic Other complications of (2 sources) Depressive disorder in mother complicating ; Translations: [Other mental disorders complicating , unspecified trimester] 10-16-2018 Episodic Other connective tissue disease (3 sources) Pain in right foot; Translations: [Pain in right foot] 03-02-2024 Episodic Other connective tissue disease (1 source) Pain in right lower limb; Translations: [Pain in right leg] 05-28-2024 Episodic Other connective tissue disease (1 source) Pain in right foot; Translations: [Pain in right foot] Onset: 04-20-2024 Episodic Other ear and sense organ disorders (1 source) Otitis externa; Translations: [Unspecified otitis externa, unspecified ear] 03-09-2023 Chronic Other liver diseases (9 sources) Lesion of liver; Translations: [Liver disease, unspecified] Onset: 02-29-2016 02-29-2016 Chronic Other nervous system disorders (1 source) Neuropathy; Translations: [Polyneuropathy, unspecified] 08-18-2024 Chronic Other nervous system disorders (2 sources) Polyneuropathy, unspecified; Translations: [Polyneuropathy, unspecified] Onset: 08-18-2024 Chronic Other nervous system disorders (3 sources) Paresthesia of foot ; Translations: [Anesthesia of skin] 04-20-2024 Episodic Other nervous system disorders (1 source) Paresthesia; Translations: [Paresthesia of skin] 05-28-2024 Episodic Other nervous system disorders (1 source) Anesthesia of skin; Translations: [Numbness and tingling of foot] Onset: 05-28-2024 Episodic Other nervous system disorders (1 source) Paresthesia of skin; Translations: [Numbness and tingling of foot] Onset: 05-28-2024 Episodic Other nutritional; endocrine; and metabolic disorders (9 sources) Obese class II; Translations: [Obesity, unspecified] Onset: 03-06-2021 03-06-2021 Chronic Other nutritional; endocrine; and metabolic disorders (2 sources) Obesity; Translations: [Obesity, unspecified] 09-18-2023 Chronic Other nutritional; endocrine; and metabolic disorders (1 source) Body mass index 30+ - obesity; Translations: [Body mass index (BMI) 38.0-38.9, adult] 09-10-2022 Chronic Other nutritional; endocrine; and metabolic disorders (1 source) Body mass index (BMI) 38.0-38.9, adult; Translations: [Body Mass Index 38.0-38.9, adult] 09-18-2023 Chronic Other nutritional; endocrine; and metabolic disorders (1 source) Obesity, unspecified; Translations: [Obesity, unspecified] 09-18-2023 Chronic Other screening for suspected conditions (not mental disorders or infectious disease) (9 sources) Computed tomography result abnormal; Translations: [Abnormal findings on diagnostic imaging of other specified body structures] Onset: 02-29-2016 02-29-2016 Chronic Other screening for suspected conditions (not mental disorders or infectious disease) (10 sources) Suspected malignancy; Translations: [Encounter for observation for other suspected diseases and conditions ruled out] Onset: 03-13-2015 03-13-2015 Episodic Other upper respiratory infections (2 sources) Sinusitis; Translations: [Chronic sinusitis, unspecified] 09-13-2023 Chronic Other upper respiratory infections (3 sources) Sore throat symptom; Translations: [Acute pharyngitis, unspecified] Episodic Otitis media and related conditions (1 source) Acute bilateral otitis media ; Translations: [Otitis media, unspecified, bilateral] 12-22-2022 Episodic Polyhydramnios and other problems of amniotic cavity (2 sources) Premature rupture of membranes; Translations: [Premature rupture of membranes, unspecified as to length of time between rupture and onset of labor, unspecified weeks of gestation] 10-16-2018 Episodic Past or Other Problems Problem Classification Problem Date Documented Da te Episodic/Chronic E Codes: Adverse effects of medical drugs (9 sources) Allergic reaction to substance; Translations: [Adverse effect of other drugs, medicaments and biological substances, initial encounter] Onset: 05-16-2016 05-16-2016 Episodic Fracture of lower limb (6 sources) Closed fractures of tarsal AND metatarsal bones; Translations: [Fracture of unspecified metatarsal bone(s), unspecified foot, initial encounter for closed fracture] Onset: 02-24-2008 Resolved: 09-24-2013 09-24-2013 Episodic Mood disorders (8 sources) Mood disorders Onset: 03-04-2022 Resolved: 03-02-2025 03-04-2022 Other complications of (6 sources) Vomiting of , unspecified; Translations: [Unspecified vomiting of , unspecified as to episode of care or not applicable] Onset: 03-08-2013 Resolved: 09-24-2013 09-03-2021 Episodic Other and delivery including normal (8 sources) ; Translations: [Encounter for supervision of normal , unspecified, unspecified trimester] Onset: 04-06-2013 Resolved: 11-22-2013 10-16-2018 Episodic Unclassified (1 source) lymph node surgery 04-03-2022 Results Test Name Value Interpretation Reference Range Facility CBC AND ELECTRONIC DIFFon Basophils (Bld) [#/Vol] 0.04 10*3/uL 0.00 - 0.15 K/uL [facility] Basophils/100 WBC (Bld) 0.6 % [facility] Differential cell count method Nom (Bld) Electronic Differential [facility] Eosinophils (Bld) [#/Vol] 0.11 10*3/uL 0.00 - 0.42 K/uL [facility] Eosinophils/100 WBC (Bld) 1.6 % [facility] Erythrocyte distribution width (RBC) [Ratio] 12.4 % 10.8 - 14.9 % [facility] Hematocrit (Bld) [Volume fraction] 40.3 % 34.9 - 44.3 % [facility] Hemoglobin (Bld) [Mass/Vol] 13.7 g/dL 11.4 - 15.2 g/dL [facility] Immature granulocytes (Bld) [#/Vol] K/uL NINF - 0.08 K/uL [facility] Immature granulocytes/100 WBC (Bld) 0.3 % [facility] Lymphocytes (Bld) [#/Vol] 1.79 10*3/uL 1.16 - 3.51 K/uL [facility] Lymphocytes/100 WBC (Bld) 26.8 % [facility] MCH (RBC) [Entitic mass] 28.8 pg 25.9 - 33.9 pg [facility] MCHC (RBC) [Mass/Vol] 34 g/dL 31.4 - 35.9 g/dL [facility] MCV (RBC) [Entitic vol] 84.7 fL 79.6 - 97.7 fL [facility] Monocytes (Bld) [#/Vol] 0.63 10*3/uL 0.22 - 0.87 K/uL [facility] Monocytes/100 WBC (Bld) 9.4 % [facility] Neutrophils (Bld) [#/Vol] 4.08 10*3/uL 1.64 - 7.28 K/uL [facility] Nucleated RBC/100 WBC (Bld) [Ratio] 0 % NINF [facility] Platelet mean volume (Bld) [Entitic vol] 11.2 fL 8.5 - 12.2 fL [facility] Platelets (Bld) [#/Vol] 202 10*3/uL 150 - 393 K/uL [facility] RBC (Bld) [#/Vol] 4.76 10*6/uL [facility] Segmented neutrophils/100 WBC (Bld) 61.3 % [facility] WBC (Bld) [#/Vol] 6.67 10*3/uL 3.99 - 11. 19 K/uL [facility] Basophils (Bld) [#/Vol] 0.04 10*3/uL Normal 0.00-0.15 [facility] Comment on above: Performed By: #### L [id number] #### [facility] (DEFAULT) [address] [address] Basophils/100 WBC (Bld) 0.6 % Normal [facility] Comment on above: Performed By: #### L [id number] #### [facility] (DEFAULT) [address] [address] DIFF STATUS Electronic Differential Normal [facility] Comment on above: Performed By: #### L [id number] #### [facility] (DEFAULT) [address] [place] [address] Eosinophils (Bld) [#/Vol] 0.11 10*3/uL Normal 0.00-0.42 [facility] Comment on above: Performed By: #### L [id number] #### [facility] (DEFAULT) [address] [address] Eosinophils/100 WBC (Bld) 1.6 % Normal [facility] Comment on above: Performed By: #### L [id number] #### [facility] (DEFAULT) [address] [address] Hematocrit (Bld) [Volume fraction] 40.3 % Normal 34.9-44.3 [facility] Comment on above: Performed By: #### L [id number] #### [facility] (DEFAULT) [address] [address] Hemoglobin (Bld) [Mass/Vol] 13.7 g/dL Normal 11.4-15.2 [facility] Comment on above: Performed By: #### L [id number] #### [facility] (DEFAULT) [address] [address] Immature Grans % 0.3 % Normal [facility] Comment on above: Performed By: #### L [id number] #### [facility] (DEFAULT) [address] [address] Immature Grans Absolute < Normal <=0.08 [facility] Comment on above: Performed By: #### L [id number] #### [facility] (DEFAULT) [address] [address] Lymphocytes (Bld) [#/Vol] 1.79 10*3/uL Normal 1.16-3.51 [facility] Comment on above: Performed By: #### L [id number] #### [facility] (DEFAULT) [address] [address] Lymphocytes/100 WBC (Bld) 26.8 % Normal [facility] Comment on above: Performed By: #### L [id number] #### [facility] (DEFAULT) [address] [address] MCV (RBC) [Entitic vol] 84.7 fL Normal 79.6-97.7 [facility] Comment on above: Performed By: #### L [id number] #### [facility] (DEFAULT) [address] [address] Mean Cell Hgb 28.8 pg Normal 25.9-33.9 [facility] Comment on above: Performed By: #### L [id number] #### [facility] (DEFAULT) [address] [address] Mean Cell Hgb Conc 34.0 g/dL Normal 31.4-35.9 [facility] Comment on above: Performed By: #### L [id number] #### [facility] (DEFAULT) [address] [address] Monocytes (Bld) [#/Vol] 0.63 10*3/uL Normal 0.22-0.87 [facility] Comment on above: Performed By: #### L [id number] #### [facility] (DEFAULT) [address] [address] Monocytes/100 WBC (Bld) 9.4 % Normal [facility] Comment on above: Performed By: #### L [id number] #### [facility] (DEFAULT) [address] [address] Nucleated RBC 0.0 /100 WBC Normal <=0.2 [facility] Comment on above: Performed By: #### L [id number] #### [facility] (DEFAULT) [address] [address] Platelet mean volume (Bld) [Entitic vol] 11.2 fL Normal 8.5-12.2 [facility] Comment on above: Performed By: #### L [id number] #### [facility] (DEFAULT) [address] [address] Platelets (Bld) [#/Vol] 202 10*3/uL Normal 150-393 [facility] Comment on above: Performed By: #### L [id number] #### [facility] (DEFAULT) [address] [place] [address] RBC (Bld) [#/Vol] 4.76 10*6/uL Normal 3.91-5.04 [facility] Comment on above: Performed By: #### L [id number] #### [facility] (DEFAULT) [address] [place] [address] RBC Distribution 12.4 % Normal 10.8-14.9 [facility] Comment on above: Performed By: #### L [id number] #### [facility] (DEFAULT) [address] [place] [address] Segs + Bands Auto 61.3 % Normal [facility] Comment on above: Performed By: #### L [id number] #### [facility] (DEFAULT) [address] [place] [address] Segs + Bands,Absolute Auto 4.08 K/uL Normal 1.64-7.28 [facility] Comment on above: Performed By: #### L [id number] #### [facility] (DEFAULT) [address] [place] [address] WBC (Bld) [#/Vol] 6.67 10*3/uL Normal 3.99-11.19 [facility] Comment on above: Performed By: #### L [id number] #### [facility] (DEFAULT) [address] [place] [address] COMPREHENSIVE METABOLIC PANE Tye 03-02-2025 Albumin [Mass/Vol] 4.4 g/dL 3.5 - 5.0 g/dL [facility] ALP [Catalytic activity/Vol] 55 U/L 32 - 126 U/L [facility] ALT [Catalytic activity/Vol] 11 U/L 9 - 48 U/L [facility] Anion gap [Moles/Vol] 8 mmol/L 7 - 17 mmol/L [facility] AST [Catalytic activity/Vol] 13 U/L 10 - 39 U/L [facility] Bilirubin [Mass/Vol] 0.5 mg/dL NINF - 1.5 mg/dL [facility] Calcium [Mass/Vol] 9 mg/dL 8.6 - 10. 5 mg/dL [facility] Chloride [Moles/Vol] 107 mmol/L 98 - 10 8 mmol/L [facility] CO2 [Moles/Vol] 28 mmol/L 21 - 31 mmol/L [facility] Creatinine [Mass/Vol] 0.64 mg/dL 0.50 - 1.20 mg/dL [facility] eGFR, CKD-EPI, Female - PINF [facility] Comment on above: Reported eGFR is bas ed on the CKD-EPI 2020 equation using creatinine, age, and sex. Glucose [Mass/Vol] 59 mg/dL Low 70 - 179 mg/dL [facility] Interpretation and review of laboratory results Abnormal [facility] Osmolality Calc [Osmolality] 288 [facility] Potassium [Moles/Vol] 3.9 mmol/L 3.5 - 5.0 mmol/L [facility] Protein [Mass/Vol] 7 g/dL 6.4 - 8.3 g/dL [facility] Sodium [Moles/Vol] 139 mmol/L 135 - 145 mmol/L [facility] Urea nitrogen [Mass/Vol] 13 mg/dL 7 - 25 mg/dL [facility] Urea nitrogen/Creatinine [Mass ratio] 20 mg/mg [facility] Albumin [Mass/Vol] 4.4 g/dL Normal 3.5-5.0 [facility] Comment on above: Performed By: #### L THONG VILA #### [facility] (DEFAULT) [address] [place] [address] ALP [Catalytic activity/Vol] 55 U/L Normal 32-126 [facility] Comment on above: Performed By: #### L VANESSA VILAN #### [facility] (DEFAULT) [address] [place] [address] ALT [Catalytic activity/Vol] 11 U/L Normal 9-48 [facility] Comment on above: Performed By: #### L DO CMPN #### [facility] (DEFAULT) [address] [place] [address] Anion gap [Moles/Vol] 8 mmol/L Normal 7-17 [facility] Comment on above: Performed By: #### L DO, CMPN #### [facility] (DEFAULT) [address] [place] [address] AST [Catalytic activity/Vol] 13 U/L Normal 10-39 [facility] Comment on above: Performed By: #### L DO, CMPN #### [facility] (DEFAULT) [address] [place] [address] 02457 Bilirubin [Mass/Vol] 0.5 mg/dL Normal <1.5 [facility] Comment on above: Performed By: #### L DO, CMPN #### [facility] (DEFAULT) [address] [place] [address] 19983 Calcium [Mass/Vol] 9.0 mg/dL Normal 8.6-10.5 [facility] Comment on above: Performed By: #### L DO, CMPN #### [facility] (DEFAULT) [address] [place] [address] 77392 Chloride [Moles/Vol] 107 mmol/L Normal 98-108 [facility] Comment on above: Performed By: #### L DO, CMPN #### [facility] (DEFAULT) [address] [place] [address] 21331 CO2 [Moles/Vol] 28 mmol/L Normal 21-31 [facility] Comment on above: Performed By: #### L DO, CMPN #### [facility] (DEFAULT) [address] [place] [address] 08721 Creatinine [Mass/Vol] 0.64 mg/dL Normal 0.50-1.20 [facility] Comment on above: Performed By: #### L DO CMPN #### [facility] (DEFAULT) [address] [place] [address] 19327 eGFR, CKD-EPI, Female > Normal >=60 [facility] Comment on above: Result Comment: Repo rted eGFR is based on the CKD-EPI 1 equation using creatinine, age, and sex. Performed By: #### L DO, CMPN #### [facility] (DEFAULT) [address] [place] [address] 37514 Glucose [Mass/Vol] 59 mg/dL Low Nonfastin -179 mg/dL; Fastin-99 [facility] Comment on above: Performed By: #### L DO, CMPN #### [facility] (DEFAULT) [address] [place] [address] 45545 Osmolality [Osmolality] 288 mosm/kg Normal 278-305 [facility] Comment on above: Performed By: #### L DO, CMPN #### [facility] (DEFAULT) [address] [place] [address] 77061 Potassium [Moles/Vol] 3.9 mmol/L Normal 3.5-5.0 [facility] Comment on above: Performed By: #### L DO, CMPN #### [facility] (DEFAULT) [address] [place] [address] 17001 Protein [Mass/Vol] 7.0 g/dL Normal 6.4-8.3 [facility] Comment on above: Performed By: #### L DO, CMPN #### [facility] (DEFAULT) [address] [place] [address] 37753 Sodium [Moles/Vol] 139 mmol/L Normal 135-145 [facility] Comment on above: Performed By: #### L DO, CMPN #### [facility] (DEFAULT) [address] [place] [address] 58190 Urea nitrogen [Mass/Vol] 13 mg/dL Normal 7-25 [facility] Comment on above: Performed By: #### L DO, CMPN #### [facility] (DEFAULT) [address] [place] [address] 26692 Urea nitrogen/Creatinine [Mass ratio] 20 mg/mg Normal [facility] Comment on above: Performed By: #### L DO, CMPN #### [facility] (DEFAULT) [address] [place] [address] 09036 LACTATE DEHYDROGENASEon 02-07 Interpretation and review of laboratory results Normal [facility] LDH Lactate to pyruvate reaction [Catalytic activity/Vol] 119 U/L 100 - 190 U/L [facility] LD Total 119 U/L Normal 100-190 [facility] Comment on above: Performed By: #### L , CMPN #### [facility] (DEFAULT) [address] [place] [address] 87241 No Panel Informationon 03-02 [facility] Visit Reporton 09-20-2024 [facility] Office Visit Report [facility] [address], [address] [place] [address] OFFICE VISIT Date of Service: 09/20/24 MR#: [id number] Acct: [id number] Name: MARCOS NELSON Rep #: [id number] : 1985 Provider: Dr. 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 Is patient in pain?: No Feel stressed/tense/nervo us/anxious/difficult y sleeping: not at all Allergies iodine Adverse Reaction (Verified 09/20/24 15:36) (IV DYE ONLY) Hives Medications ???Medication ???Instructions ???Recorded ???Confirmed ???Type acetaminophen 325 mg capsule 325 mg PO Q4H PRN 12/22/22 09/20/24 History (Tylenol) sertraline 50 mg tablet 50 mg PO DAILY 12/22/22 09/20/24 History levonorgestrel 20.4 mcg/24 hr (up 1 device intrauterine ONCE 09/18/23 09/20/24 History to 8 yrs) 52 mg intrauterine device (Liletta) semaglutide 0.25 mg or 0.5 mg (2 0.25 mg subcut QWEEK 09/20/24 09/20/24 History mg/1.5 mL) subcutaneous pen injector Post menopausal: No Patient : No : No PFSH Medical History Anemia Anxiety Melanoma Surgical History History of lymph node dissection of left axilla S/P dilation and curettage lymph node surgery Family History Father Heart disease, Onset Age: 68 quad bypass Mother Ataxia Thyroid disorder Social History (Updated 09/20/24 @ 15:39 by Angela Rodrigues) number of children: 2 Smoking Status: Never smoker alcohol intake: current alcohol intake frequency: a few times a week substance use type: does not use caffeine: Yes what type of physical activity do you participate in: none seatbelt use: always do you feel safe at home: Yes additional social history: Riya walden Patient works at [employer] History 3 Elective abortions Hx Para 2 Spontaneous abortions 1 Hx # Term Pregnancies 2 Ectopic pregnancies Hx # Pregnancies Multiple births # of living children 2 Past Pregnancies Del. Date Name GA/Weeks Outcome Route Bth Weight Infant Gen Labor Lgth Anesthesia Del Locatn Provider FOB Unknown 2013 [place] 38 live - full term Female [place] r SHENA 09/02/18 [place] 36 live - 7lbs 4oz Female epidural [facility] SM Delivery Date: 09/02/18 Last Updated by: Franchesca aNrvaez PPROM HPI Encounter for routine gynecological examination Details: MARCOS NELSON is a 39 year old who presents for annual exam. Last PAP: 09/18/2023 - normal History of abnormal PAP: no abnormal Last mammogram: done History of abnormal mammogram: 02/19/2024 - normal Colon cancer screening: not due Other preventative health care screenings: PCP is Dr. Delaney, patient does not see routinely. Oncologist yearly. Female Reproductive History Cycle Length: 21-35 Bleeding Duration: 5 Questions: metorrhagia: No, sexually active: Yes, dyspareunia: No and PCB: No Menopausal Symptoms: No hot flashes, No night sweats, No weight change, No mood changes, No difficulty concentrating, No sleep problems and No change in libido ROS Const Constitutional: Reports as per HPI; Denies fatigue, increased appetite, poor appetite, night sweats, weight gain or weight loss Cardio Card: Denies chest pain Resp Resp: Denies cough or dyspnea GI GI: Reports as per HPI; Denies abdominal pain, bloating, constipation, nausea or vomiting : Reports as per HPI and other; Denies difficulty voiding, dysuria, hematuria, hot flashes, nipple discharge, pelvic pain, prolapse symptoms, urinary frequency, urinary incontinence, urinary urgency, vaginal discharge, vaginal dryness, vaginal odor or vaginal pruritus Skin Skin/Breast: Denies changing lesions, breast mass, breast pain, breast skin changes or nipple discharge Psych Psych: Denies anxiety, change in libido, depression or difficulty concentrating Exam Const General: cooperative, healthy appearing, comfortable, no acute distress, well developed and well groomed [facility] Head: normal to inspection and normocephalic Ears: hearing grossly normal bilaterally and external ears normal Nose: external nose normal Face and sinus: normal facial exam Neck Neck: normal visual inspection, full ROM and no lymphadenopathy Thyroid: thyroid normal Chest Chest palpation inspection: normal inspection of the chest Breast inspection: normal inspection of the breasts and normal inspection of the axillae Breast palpation: normal palpation of the (more content not included)... Normal [facility] MRI SPINE LUMBAR WITH AND WI THOUT CONTRASTon 06-28-2024 MRI SPINE LUMBAR WITH AND WITHOUT CONTRAST EXAM: MRI lumbar spine with and without intravenous contrast INDICATION: 39-year-old female with lumbar spine lesion. TECHNIQUE: Multiplanar, multisequence magnetic resonance imaging of the lumbar spine was performed with and without intravenous contrast on a 1.5 Jazmin magnet. COMPARISON: CT abdomen and pelvis 01/25/2020 FINDINGS: 5 lumbar appearing ccd-coq-lbkzror vertebral bodies. No acute fracture or dislocation. Appropriate alignment. Bone marrow signal intensity is preserved. Vertebral body heights and disc spaces are preserved. L3-S1 disc desiccation. Conus medullaris and cauda equina appear normal. Mild bilateral L4-S1 neuroforaminal narrowing without canal stenosis. Moderate to severe L3-S1 facet arthropathy. IMPRESSION: No acute abnormality. No suspicious osseous lesion. Gail Taylor M.D. This report has been electronically signed and verified by the Radiologist whose name is printed above. This report contains privileged and confidential information and is intended solely for the use of the individual or entity to which it is addressed. If you are not the intended recipient of this report, you are hereby notified that any copying, distribution, dissemination or action taken in relation to the contents of this report is strictly prohibited and may be unlawful. If you have received this report in error, please notify the sender immediately at [phone] and permanently delete the original report and destroy any copies or printouts. Normal [facility] EMG(NEURO/NI)on 05-28-2024 Results can be seen in attached scanned documents. If you are a patient reviewing this test result, call the doctor who ordered the test with any questions. [facility] CNPRosa 04-24-2024 CNPN Telephone (PODIWS) MARCOS NELSON ([id number]) 1985 F Date Time Provider Department 04/24/24 GAIL CALDERON PODIWS During your visit today, we recorded the following information about you: Gail Calderon 04/24/2024 7:44 AM Signed Please call patient to inform her that her xrays of the back show mild lumbar arthritis. Check emg to see if numbness is coming from the back. Her xrays of the foot shows mild arthritis in the great toe joint MADDY Dotson Amelia, LPN 04/26/2024 8:49 AM Signed Called patient with below results. No response. Left VM. ARMAND Drake Laurie, MA 04/26/2024 9:08 AM Signed Pt notified and verbalizes understanding. EMG scheduled. Ines Mancuso MA Allergies As of Date: 04/24/2024 Noted Allergy Reaction DIATRIZOIC ACID 05/16/2016 2 - Rash Date Reviewed: 04/20/2024 Reviewed by: Dahpne Chiang LPN - Fully Assessed Reason for Visit: Results [95] Prescriptions as of 04/26/2024 - semaglutide (OZEMPIC) 1 mg/0.75 ml subcutaneous pen injector Inject subcutaneously one time a week. - etonogestrel/ethinyl estradiol (NUVARING VAGINAL) Use vaginally. - sertraline (ZOLOFT) 50 mg tablet Take 1 tablet by mouth once daily. - Desogestrel-Ethinyl Estradiol (APRI) 0.15-0.03 mg per tablet Take 1 tablet by mouth once daily. - MULTIVITAMIN ORAL Take by mouth. - ASCORBIC ACID (VITAMIN C ORAL) Take by mouth. - CALCIUM CARBONATE/VITAMIN D3 (VITAMIN D-3 ORAL) Take by mouth. Problem List As Of Date 04/24/2024 Noted Resolved Other closed fracture of tarsal and metatarsal *02/24/2008 09/24/2013 Childhood asthma [J45.909] 03/08/2013 Nausea/vomiting in [O21.9] 03/08/2013 09/24/2013 Supervision of normal first [Z34.00] 04/06/2013 11/22/2013 Depression [F32.A] 04/11/2014 Encounter Status:Closed by DAPHNE CHIANG on 04/26/[address] [facility] CNOVon 04-20-2024 CNOV Office Visit (PODIWS) MARCOS NELSON ([id number]) 1985 F Date Time Provider Department 04/20/24 8:15 AM GAIL CALDERON During your visit today, we recorded the following information about you: Daphne Chiang LPN 04/20/2024 9:47 AM Signed AMB ROOMING INTAKE FLOWSHEET DATA Risk Screening Do you have concerns about personal safety or safety in the home?: No Patient presents with: Right Foot - New, Numbness ARMAND Drake Matthew 04/20/2024 9:47 AM Signed Initial Podiatric Office Visit: Chief Complaint: This 39 year old female who presents with chief complaint:numbness of right lower extremity HPI Patient presents to clinic for evaluation of right foot. Complains of numbness to the lateral aspect of right foot. 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 She states the numbness is mostly along the lateral aspect of right foot. Has noticed that this has been going on for about one year. No pain. No prior imaging. Has history of melignant melanoma that she sees the [facility] [place]. PAIN EVALUATION No data found in the last 1 encounters. No results found for: HBA1C PCP: Flora Delaney MD PAST MEDICAL HISTORY No date: Childhood asthma Comment: NO INHALER SINCE AGE 16 04/11/2014: Depression No date: Malignant melanoma (HCC) Comment: stage IIIa, [facility] Current Outpatient Medications Medication Sig semaglutide (OZEMPIC) 1 mg/0.75 ml subcutaneous pen injector Inject subcutaneously one time a week. etonogestrel/ethinyl estradiol (NUVARING VAGINAL) Use vaginally. sertraline (ZOLOFT) 50 mg tablet Take 1 tablet by mouth once daily. MULTIVITAMIN ORAL Take by mouth. Desogestrel-Ethinyl Estradiol (APRI) 0.15-0.03 mg per tablet Take 1 tablet by mouth once daily. (Patient not taking: Reported on 06/30/2022) ASCORBIC ACID (VITAMIN C ORAL) Take by mouth. (Patient not taking: Reported on 06/30/2022) CALCIUM CARBONATE/VITAMIN D3 (VITAMIN D-3 ORAL) Take by mouth. No current facility-administere d medications for this visit. ALLERGIES Allergen Reactions Diatrizoic Acid Rash PAST SURGICAL HISTORY No date: APPENDECTOMY No date: PAST SURGICAL HISTORY OF Comment: LEFT FOOT No date: PAST SURGICAL HISTORY OF Comment: Complete Lymph Node Disection (left arm) FAMILY HISTORY Problem Relation Age of Onset Arthritis Father Arthritis Maternal Grandmother Cancer Maternal Grandfather Hypertension Father Lipids Father Cancer Maternal Grandmother Social History Tobacco Use Smoking status: Never Smokeless tobacco: Never Substance Use Topics Alcohol use: Yes Comment: Occasionally Drug use: No REVIEW OF SYSTEMS GENERAL: Negative for Malaise, significant weight loss, fever RESPIRATORY: Negative for cough, wheezing and shortness of breath CARDIOVASCULAR: Negative for chest pain, leg swelling and palpitations GI: Negative for abdominal discomfort, blood in stools or black stools and change in bowel habits : Negative for dysuria, frequency and incontinence MUSCULOSKELETAL: Negative for joint pain or swelling, back pain, and muscle pain. SKIN: Negative for lesions, rash, and itching. HEMATOLOGY/LYMPHOLOG Y Negative for prolonged bleeding, bruising easily, and swollen nodes. ENDOCRINE: Negative for cold or heat intolerance, polyuria, polydipsia and goiter. NEURO: negative Physical Exam: Constitutional: Pt is a well developed 39 year old female who is alert, oriented and cooperative Eyes: Following during examination. No redness or drainage. Respiratory: RR normal and nonlabored. Even breathing. No evidence of distress or shortness of breath. Psychology: Patient is engaged during conversation. Normal affect and mood. Does not appear depressed or anxious during encounter. Vascular: Dorsalis pedis and posterior tibial pulses palpable as b/l Capillary Fill time < 5 seconds to digits 1-5 b/l Skin temperature warm to warm proximal to distal b/l Hair growth present to digits Neurological: intact light touch/epicritic sensation Vibratory sensation intact to hallux b/l intact protective sensation no significant neurological deficits Dermatological: Nails 1-5 b/l appear normal. Webspaces clean and dry 1-4 b/l. Skin appears well hydrated and supple. good color, texture, turgor. No open lesions present. No callosities present. Musculoskeletal/Orth opaedic: Patient has no pain to palpation of b/l feet Foot type is neutral structurally AJ ROM is full with knee extended and flexed 1st MPJ is decreased to left foot. MTJ, STJ are full and free of pain and crepitus. +5/5 muscle strength dorsiflexion, plantarflexion, inversion, eversion b/l Radiographs: ordered ASSESSMENT: (R20.0, R20.2) Numbnes (more content not included)... Normal [facility] XR FOOT 3V AP/LAT/OBL BILon 04-20-2024 XR FOOT 3V AP/LAT/OBL MIKEY * * *Final Report* * * DATE OF EXAM: Apr 20 2024 10:13AM [id number] - XR FOOT 3V AP/LAT/OBL MIKEY / PROCEDURE REASON: multiple diagnoses * * * * Physician Interpretation * * * * HISTORY: 39-YEAR-OLD FEMALE WITH Numbness and tingling of foot Numbness and tingling of foot Acquired hallux limitus of left foot . PT STATES BILAT FOOT NUMBNESS TECHNIQUE: XR FOOT 3V AP/LAT/OBL MIKEY Laterality: BILATERAL Number of different views (projections): 3 COMPARISON: None RESULT: Right foot: Osteophytes at the first MTP joint. The joint space is maintained. Pes cavus. Bones and joints otherwise intact. Left foot: Status post bunionectomy with resection of the medial eminence of the first metatarsal. A Shayne screw fixation osteotomy of the proximal phalanx. Degenerative changes of first MTP joint with osteophytes. Pes cavus. IMPRESSION: DEGENERATIVE CHANGES OF THE FIRST MTP JOINT BILATERALLY, MORE SEVERE ON THE RIGHT. STATUS POST BUNIONECTOMY ON THE LEFT. BILATERAL PES CAVUS. Time Clock Inspector: PHILIPP Transcribe Date/Time: Apr 22 2024 7:04P Dictated by : BEBETO BROOKS MD This examination was interpreted and the report reviewed and electronically signed by: BEBETO BROOKS MD on Apr 22 2024 7:08PM EST [id number] Normal [facility] XR LUMBAR 4V AP/LAT/ FLEX/EX Ton 04-20-2024 XR LUMBAR 4V AP/LAT/ FLEX/EXT * * *Final Report* * * DATE OF EXAM: Apr 20 2024 10:14AM [id number] - XR LUMBAR 4V AP/LAT/ FLEX/EXT / PROCEDURE REASON: multiple diagnoses * * * * Physician Interpretation * * * * EXAM TITLE: XR LUMBAR 4V AP/LAT/ FLEX/EXT EXAM DATE/TIME: 04/20/2024 10:14 AM COMPARISON: None. CLINICAL INDICATION/HISTORY: Numbness and tingling of the foot. TECHNIQUE: AP, lateral, lateral extension, lateral flexion and cone down lateral views of the lumbar spine are presented. FINDINGS: There are five dmk-euc-imvfqsy lumbar vertebrae. No fracture or subluxations are noted. No change in alignment of the lumbar spine with lateral extension and lateral flexion. The disc spaces are well preserved. There is mild osteophyte formation. Others: A T-shaped IUD seen in the pelvis. IMPRESSION: Lumbar spine mild degenerative changes. Time Clock Inspector: [email or web address] Transcribe Date/Time: Apr 20 2024 4:37P Dictated by : GABBY LEONE MD This examination was interpreted and the report reviewed and electronically signed by: GABBY LEONE MD on Apr 20 2024 4:39PM EST [id number] CN Normal [facility] XR Lumbar spine Views W flex ion and W extensionon 04-20-2024 IMPRESSION: Lumbar spine mild degenerative changes. Time Clock Inspector: PHILIPP Transcribe Date/Time: Apr 20 2024 4:37P Dictated by : GABBY LEONE MD This examination was interpreted and the report reviewed and electronically signed by: GABBY LEONE MD on Apr 20 2024 4:39PM EST DIVISION OF RADIOLOGY * * *Final Report* * * DATE OF EXAM: Apr 20 2024 10:14AM [id number] - XR LUMBAR 4V AP/LAT/ FLEX/EXT / PROCEDURE REASON: multiple diagnoses * * * * Physician Interpretation * * * * EXAM TITLE: XR LUMBAR 4V AP/LAT/ FLEX/EXT EXAM DATE/TIME: 04/20/2024 10:14 AM COMPARISON: None. CLINICAL INDICATION/HISTORY: Numbness and tingling of the foot. TECHNIQUE: AP, lateral, lateral extension, lateral flexion and cone down lateral views of the lumbar spine are presented. FINDINGS: There are five kqd-fbb-awcbfhk lumbar vertebrae. No fracture or subluxations are noted. No change in alignment of the lumbar spine with lateral extension and lateral flexion. The disc spaces are well preserved. There is mild osteophyte formation. Others: A T-shaped IUD seen in the pelvis. DIVISION OF RADIOLOGY Provider, [facility] [place] - 04/20/2024 * * *Final Report* * * DATE OF EXAM: Apr 20 2024 10:14AM [id number] - XR LUMBAR 4V AP/LAT/ FLEX/EXT / PROCEDURE REASON: multiple diagnoses * * * * Physician Interpretation * * * * EXAM TITLE: XR LUMBAR 4V AP/LAT/ FLEX/EXT EXAM DATE/TIME: 04/20/2024 10:14 AM COMPARISON: None. CLINICAL INDICATION/HISTORY: Numbness and tingling of the foot. TECHNIQUE: AP, lateral, lateral extension, lateral flexion and cone down lateral views of the lumbar spine are presented. FINDINGS: There are five kao-vih-bighugu lumbar vertebrae. No fracture or subluxations are noted. No change in alignment of the lumbar spine with lateral extension and lateral flexion. The disc spaces are well preserved. There is mild osteophyte formation. Others: A T-shaped IUD seen in the pelvis. IMPRESSION IMPRESSION: Lumbar spine mild degenerative changes. Time Clock Inspector: PHILIPP Transcribe Date/Time: Apr 20 2024 4:37P Dictated by : GABBY LEONE MD This examination was interpreted and the report reviewed and electronically signed by: GABBY LEONE MD on Apr 20 2024 4:39PM EST [facility] Radiology Study observation (narrative) [facility] XR Lumbar spine Views W flex ion and W extensionOrdered By: Ccf Provider on 04-20-2024 [facility] ic CBC AND ELECTRONIC DIFFon Basophils (Bld) [#/Vol] 0.06 10*3/uL 0.00 - 0.15 K/uL [facility] Basophils/100 WBC (Bld) 1.0 % [facility] Differential cell count method Nom (Bld) Electronic Differential [facility] Eosinophils (Bld) [#/Vol] 0.10 10*3/uL 0.00 - 0.42 K/uL [facility] Eosinophils/100 WBC (Bld) 1.6 % [facility] Erythrocyte distribution width (RBC) [Ratio] 12.4 % 10.8 - 14.9 % [facility] Hematocrit (Bld) [Volume fraction] 41.8 % 34.9 - 44.3 % [facility] Hemoglobin (Bld) [Mass/Vol] 14.9 g/dL 11.4 - 15.2 g/dL [facility] Immature granulocytes (Bld) [#/Vol] K/uL NINF - 0.08 K/uL [facility] Immature granulocytes/100 WBC (Bld) 0.5 % [facility] Interpretation and review of laboratory results Abnormal [facility] Lymphocytes (Bld) [#/Vol] 1.95 10*3/uL 1.16 - 3.51 K/uL [facility] Lymphocytes/100 WBC (Bld) 30.9 % [facility] MCH (RBC) [Entitic mass] 29.0 pg 25.9 - 33.9 pg [facility] MCHC (RBC) [Mass/Vol] 35.6 g/dL 31.4 - 35.9 g/dL [facility] MCV (RBC) [Entitic vol] 81.5 fL 79.6 - 97.7 fL [facility] Monocytes (Bld) [#/Vol] 0.56 10*3/uL 0.22 - 0.87 K/uL [facility] Monocytes/100 WBC (Bld) 8.9 % [facility] Neutrophils (Bld) [#/Vol] 3.61 10*3/uL 1.64 - 7.28 K/uL [facility] Nucleated RBC/100 WBC (Bld) [Ratio] 0.0 % [facility] Platelet mean volume (Bld) [Entitic vol] 11.1 fL 8.5 - 12.2 fL [facility] Platelets (Bld) [#/Vol] 197 10*3/uL 150 - 393 K/uL [facility] RBC (Bld) [#/Vol] 5.13 10*6/uL [facility] Segmented neutrophils/100 WBC (Bld) 57.1 % [facility] WBC (Bld) [#/Vol] 6.31 10*3/uL 3.99 - 11. 19 K/uL [facility] COMPREHENSIVE METABOLIC PANE Tye 03-02-2024 Albumin [Mass/Vol] 4.8 g/dL 3.5 - 5.0 g/dL [facility] ALP [Catalytic activity/Vol] 60 U/L 32 - 126 U/L [facility] ALT [Catalytic activity/Vol] 11 U/L 9 - 48 U/L [facility] Anion gap [Moles/Vol] 9 mmol/L 7 - 17 mmol/L [facility] AST [Catalytic activity/Vol] 17 U/L 10 - 39 U/L [facility] Bilirubin [Mass/Vol] 0.7 mg/dL NINF - 1.5 mg[facility] [Mass/Vol] 9.6 mg/dL 8.6 - 10. 5 mg/dL [facility] Chloride [Moles/Vol] 106 mmol/L 98 - 10 8 mmol/L [facility] CO2 [Moles/Vol] 28 mmol/L 21 - 31 mmol/L [facility] Creatinine [Mass/Vol] 0.68 mg/dL 0.50 - 1.20 mg/dL [facility] eGFR, CKD-EPI, Female - PINF [facility] Comment on above: Reported eGFR is bas ed on the CKD-EPI 2020 equation using creatinine, age, and sex. Glucose [Mass/Vol] 80 mg/dL 70 - 99 mg/dL [facility] Osmolality Calc [Osmolality] 289 [facility] Potassium [Moles/Vol] 4.1 mmol/L 3.5 - 5.0 mmol/L [facility] Protein [Mass/Vol] 7.9 g/dL 6.4 - 8.3 g/dL [facility] Sodium [Moles/Vol] 139 mmol/L 135 - 145 mmol/L [facility] Urea nitrogen [Mass/Vol] 11 mg/dL 7 - 25 mg/dL [facility] Urea nitrogen/Creatinine [Mass ratio] 16 mg/mg [facility] LACTATE DEHYDROGENASEon 06-2 Interpretation and review of laboratory results Normal [facility] LDH Lactate to pyruvate reaction [Catalytic activity/Vol] 145 U/L 100 - 190 U/L [facility] No Panel Informationon 03-02 [facility] STREP A MOLECULAR (POC)on Procedural Control Valid [facility] Strep A (POCT) Negative Negative [facility] Vital Signs Date Time Vital Sign Value Performing Clinician Facility 03-02-2025 08:20-0400 Body height 168.8 cm Felicitas Puckett MD, PhD Work Phone: [phone] [address] [place] [address] Comment on above: shoes off 03-02-2025 08:20-0400 Body mass index (BMI) [Ratio] 31.97 kg/m2 Felicitas Puckett MD, PhD Work Phone: 3(890)[phone] [address] [place] [address] 03-02-2025 08:20-0400 Body temperature 97.81 [degF] Felicitas Puckett MD, PhD Work Phone: 1(265)[phone] [address] [place] [address] 03-02-2025 08:20-0400 Body weight 91.08 kg Felicitas Puckett MD, PhD Work Phone: 2(040)[phone] [address] [place] [address] Comment on above: shoes off 03-02-2025 08:20-0400 Diastolic blood pressure 61 mm[Hg] Felicitas Puckett MD, PhD Work Phone: 4(770)719-726416 [address] [place] [address] 03-02-2025 08:20-0400 Heart rate 78 /min Felicitas Puckett MD, PhD Work Phone: 6(873)641-720916 [address] [place] [address] 03-02-2025 08:20-0400 Respiratory rate 18 /min Felicitas Puckett MD, PhD Work Phone: 6(457)[phone] [address] [place] [address] 03-02-2025 08:20-0400 SaO2% (BldA) [Mass fraction] 99 % Felicitas Puckett MD, PhD Work Phone: 3(279)[phone] [address] [place] [address] Comment on above: room air 03-02-2025 08:20-0400 Systolic blood pressure 121 mm[Hg] Felicitas Puckett MD, PhD Work Phone: 0(245)[phone] [address] [place] [address] 06-27-2024 10:50-0400 Body height 167.6 cm Ifeoma Lahm CRA OFFICER-[employer]OR [employer] Work Phone: [facility] 06-27-2024 10:50-0400 Diastolic blood pressure 75 mm[Hg] Ifeoma Lahm CRA OFFICER-[employer]OR [employer] Work Phone: [facility] 06-27-2024 10:50-0400 Systolic blood pressure 129 mm[Hg] Ifeoma Lahm CRA OFFICER-[employer]OR [employer] Work Phone: 6(360)[phone] [place] [address] 03-02-2024 08:54-0400 Body height 167.6 cm Ifeoma Lahm CRA OFFICER-[employer]OR [employer] Work Phone: 0(709)609-103494 [address] 03-02-2024 08:54-0400 Body mass index (BMI) [Ratio] 38.09 kg/m2 Ifeoma Lahm CRA OFFICER-[employer]OR [employer] Work Phone: 7(432)269-747294 [address] 03-02-2024 08:54-0400 Body temperature 97.9 [degF] Ifeoma Lahm CRA OFFICER-DIRECTOR [employer] Work Phone: 4(202)[phone] [address] 03-02-2024 08:54-0400 Body weight 107.05 kg Ifeoma Lahm CRA OFFICER-[employer]OR [employer] Work Phone: [facility] 03-02-2024 08:54-0400 Diastolic blood pressure 72 mm[Hg] Ifeoma Lahm CRA OFFICER-DIRECTOR [employer] Work Phone: [facility] 03-02-2024 08:54-0400 Heart rate 80 /min Ifeoma Lahm CRA OFFICER-DIRECTOR [employer] Work Phone: [facility] 03-02-2024 08:54-0400 Respiratory rate 16 /min Ifeoma Lahm CRA OFFICER-DIRECTOR [employer] Work Phone: [facility] 03-02-2024 08:54-0400 SaO2% (BldA) [Mass fraction] 99 % Ifeoma Lahm CRA OFFICER-DIRECTOR [employer] Work Phone: [facility] 03-02-2024 08:54-0400 Systolic blood pressure 129 mm[Hg] Ifeoma Larson CRA OFFICER-DIRECTOR [employer] Work Phone: [facility] 09-18-2023 15:50-0500 Body height 167.[address] Flora Delaney Work Phone: [facility] 09-18-2023 15:41-0500 Body mass index (BMI) [Ratio] 38 kg/m2 Dr. Flora Delaney Work Phone: [facility] 09-18-2023 15:41-0500 Body weight 106.[address] Flora Delaney Work Phone: [facility] 09-18-2023 15:41-0500 Diastolic blood pressure 80 mm[Hg] Dr. Flora Delaney Work Phone: [facility] 09-18-2023 15:41-0500 Systolic blood pressure 122 mm[Hg] Dr. Flora Delaney Work Phone: [facility] 09-13-2023 09:52-0500 Body temperature 97.7 [degF] Dr. Flora Delaney Work Phone: [facility] 09-13-2023 09:52-0500 Diastolic blood pressure 78 mm[Hg] Dr. Flora Delaney Work Phone: [facility] 09-13-2023 09:52-0500 Heart rate 104 /min Dr. Flora Delaney Work Phone: [facility] 09-13-2023 09:52-0500 Respiratory rate 14 /min Dr. Flora Delaney Work Phone: [facility] 09-13-2023 09:52-0500 SaO2% (BldA) [Mass fraction] 99 % Dr. Flora Delaney Work Phone: [facility] 09-13-2023 09:52-0500 Systolic blood pressure 124 mm[Hg] Dr. Flora Delaney Work Phone: [facility] 03-03-2023 11:52-0400 Body height 167.6 cm Felicitas Puckett MD, PhD Work Phone: 1(715)891-305894 [address] 03-03-2023 11:52-0400 Body mass index (BMI) [Ratio] 38.38 kg/m2 Felicitas Puckett MD, PhD Work Phone: 7(748)544-280694 [address] 03-03-2023 11:52-0400 Body temperature 98.4 [degF] Felicitas Puckett MD, PhD Work Phone: 9(163)015-379816 [address] [place] [address] 03-03-2023 11:52-0400 Body weight 107.86 kg Felicitas Puckett MD, PhD Work Phone: 0(013)377-699416 [address] [place] [address] 03-03-2023 11:52-0400 Diastolic blood pressure 78 mm[Hg] Felicitas Puckett MD, PhD Work Phone: 2(292)[phone] [address] [place] [address] 03-03-2023 11:52-0400 Heart rate 81 /min Felicitas Puckett MD, PhD Work Phone: 6(938)340-914694 [address] 03-03-2023 11:52-0400 Respiratory rate 16 /min Felicitas Puckett MD, PhD Work Phone: 3(794)[phone] [address] [place] [address] 03-03-2023 11:52-0400 SaO2% (BldA) [Mass fraction] 98 % Felicitas Puckett MD, PhD Work Phone: 4(795)856-775294 [address] 03-03-2023 11:52-0400 Systolic blood pressure 129 mm[Hg] Felicitas Puckett MD, PhD Work Phone: 0([phone])[phone] [address] 06-30-2022 10:00-0400 Body temperature 97.81 [degF] Ita Ramos APRN.DIRECTOR [employer] Work Phone: [facility] 06-30-2022 10:00-0400 Body weight 98.97 kg Ita Rachel CRA OFFICER.DIRECTOR [employer] Work Phone: [facility] 06-30-2022 10:00-0400 Diastolic blood pressure 76 mm[Hg] Ita Rachel CRA OFFICER.[employer]OR [employer] Work Phone: [facility] 06-30-2022 10:00-0400 Heart rate 103 /min Ita Rachel CRA OFFICER.[employer]OR [employer] Work Phone: [facility] 06-30-2022 10:00-0400 Respiratory rate 16 /min Ita Rachel CRA OFFICER.DIRECTOR [employer] Work Phone: [facility] 06-30-2022 10:00-0400 SaO2% (BldA) [Mass fraction] 99 % Ita Rachel CRA OFFICER.DIRECTOR [employer] Work Phone: [facility] 06-30-2022 10:00-0400 Systolic blood pressure 128 mm[Hg] Ita Rachel CRA OFFICER.DIRECTOR [employer] Work Phone: [facility] 03-04-2022 11:16-0400 Body height 168.4 cm Felicitas Puckett MD, PhD Work Phone: [facility] 03-04-2022 11:16-0400 Body mass index (BMI) [Ratio] 35.27 kg/m2 Felicitas Puckett MD, PhD Work Phone: [facility] 03-04-2022 11:16-0400 Body temperature 98.01 [degF] Felicitas Puckett MD, PhD Work Phone: [facility] 03-04-2022 11:16-0400 Body weight 100.02 kg Felicitas Puckett MD, PhD Work Phone: [facility] 03-04-2022 11:16-0400 Diastolic blood pressure 78 mm[Hg] Felicitas Puckett MD, PhD Work Phone: [facility] 03-04-2022 11:16-0400 Heart rate 79 /min Felicitas Puckett MD, PhD Work Phone: [facility] 03-04-2022 11:16-0400 Respiratory rate 16 /min Felicitas Puckett MD, PhD Work Phone: [facility] 03-04-2022 11:16-0400 SaO2% (BldA) [Mass fraction] 99 % Felicitas Puckett MD, PhD Work Phone: [facility] 03-04-2022 11:16-0400 Systolic blood pressure 144 mm[Hg] Felicitas Puckett MD, PhD Work Phone: [facility] 12-03-2021 08:22-0400 Body height 167.[address] Flora Delaney Work Phone: [facility] Work Phone: 12-03-2021 08:22-0400 Body mass index (BMI) [Ratio] 36.4 kg/m2 Dr. Flora Delaney Work Phone: [facility] Work Phone: 12-03-2021 08:22-0400 Body weight 102.[address] Flora Delaney Work Phone: [facility] Work Phone: 12-03-2021 08:22-0400 Diastolic blood pressure 84 mm[Hg] Dr. Flora Delaney Work Phone: [facility] Work Phone: 12-03-2021 08:22-0400 Systolic blood pressure 138 mm[Hg] Dr. Flora Delaney Work Phone: [facility] Work Phone: 11-01-2021 07:17-0500 Body mass index (BMI) [Ratio] 36.8 kg/m2 Dr. Flora Delaney Work Phone: [facility] Work Phone: 11-01-2021 07:17-0500 Body weight 103.[address] Flora Delaney Work Phone: [facility] Work Phone: 11-01-2021 07:17-0500 Diastolic blood pressure 82 mm[Hg] Dr. Flora Delaney Work Phone: [facility] Work Phone: 11-01-2021 07:17-0500 Systolic blood pressure 128 mm[Hg] Dr. Flora Delaney Work Phone: [facility] Work Phone: Encounters Encounter Date Encounter Type Care Provider Facility Start: 05-13-2025 ambulatory Tamy Juarez lity:[facility] Start: 03-02-2025 End: 03-02-2025 Office outpatient visit 15 minutes Felicitas Puckett MD, PhD Work Phone: [facility] Comment on above: Malignant melanoma o f back (Primary Dx); Encounter for follow-up surveillance of melanoma Start: 03-02-2025 End: 03-02-2025 Clinical Support Encounter Felicitas Puckett MD, PhD Work Phone: [facility] Comment on above: Malignant melanoma o f back Start: 03-02-2025 ambulatory FELICITAS PUCKETT Facility: [facility] Start: 09-20-2024 End: 09-20-2024 ambulatory Flora S Tanner Facility:[facility] Start: 08-18-2024 End: 08-18-2024 Office outpatient new 45 minutes Shyam Montes MD Work Phone: [facility] Comment on above: Neuropathy (Primary Dx) Start: 08-18-2024 ambulatory FELICITAS PUCKETT Facility: [facility] Start: 06-29-2024 ambulatory FLORA S JOLLIFF Facility: [facility] Start: 06-27-2024 ambulatory IFEOMA Lees ty:[facility] Start: 06-27-2024 End: 06-27-2024 Subsequent hospital visit by physician Ifeoma Larson CRA OFFICER-[employer]OR [employer] Work Phone: [facility] Comment on above: Arrived Start: 05-28-2024 End: 06-02-2024 ambulatory FLORA DELANEY Neurology Comment on above: EMG results Start: 05-28-2024 End: 05-28-2024 Patient encounter procedure Emg 2 Neur Aditya Mc (Max Weight: 850) Neurology Start: 04-24-2024 End: 04-26-2024 Telephone encounter Gail Garzonjace Work Phone: Podiatry Comment on above: Results Start: 04-20-2024 End: 04-20-2024 Patient encounter procedure Gail Hollandadamaris Work Phone: Podiatry Comment on above: Numbness and tinglin g of foot (Primary Dx); Acquired hallux limitus of left foot Start: 04-20-2024 End: 04-20-2024 ambulatory GAIL CALDERON Facility:[facility] Start: 04-20-2024 End: 04-20-2024 Subsequent hospital visit by physician [facility] Work Phone: Radiology Comment on above: Numbness and tinglin g of foot [R20.0, R20.2] Start: 04-14-2024 Orders Only Gail bailon Work Phone: Podiatry Comment on above: Pain in right foot ( Primary Dx) Start: 03-02-2024 End: 03-02-2024 Office outpatient visit 15 minutes Felicitas Puckett MD, PhD Work Phone: [facility] Comment on above: Right foot pain (Lucille roseann Dx); Malignant melanoma of back Start: 03-02-2024 End: 03-02-2024 Follow-up encounter Felicitas Puckett MD, PhD Work Phone: [facility] 1 Comment on above: Malignant melanoma o f back; Encounter for follow-up surveillance of melanoma Start: 09-18-2023 End: 09-18-[address] Flora Delaney Work Phone: [facility] Work Phone: Start: 09-18-2023 End: 09-18-[address] Flora Delaney Work Phone: [facility]-Laboratory, Specimen Work Phone: Start: 09-18-2023 End: 09-18-[address] Flora Delaney Work Phone: [facility] Work Phone: Start: 09-13-2023 End: 09-13-[address] Flora Delaney Work Phone: [facility] Work Phone: Start: 03-03-2023 End: 03-03-2023 Office outpatient visit 15 minutes Felicitas Puckett MD, PhD Work Phone: [facility] Comment on above: Malignant melanoma o f back (Primary Dx); Encounter for follow-up surveillance of melanoma Start: 06-30-2022 End: 06-30-2022 Patient encounter procedure Ita Ramos APRN.DIRECTOR [employer] Work Phone: [facility] Comment on above: Sore throat (Primary Dx); URI, acute Start: 03-04-2022 End: 03-04-2022 Office outpatient visit 15 minutes Felicitas Puckett MD, PhD Work Phone: [facility] Comment on above: Malignant melanoma o f back (Primary Dx); Encounter for follow-up surveillance of melanoma Start: 02-07-2022 End: 02-07-[address] Flora Delaney Work Phone: [facility]Outpatient Breast [facility] Start: 12-03-2021 End: 12-03-[address] Flora Delaney Work Phone: [facility] Start: 11-01-2021 End: 11-01-[address] Flora Delaney Work Phone: [facility] Start: 04-17-2021 End: 04-17-2021 Nutrition therapy Samantha Sandra RD Work Phone: [facility] Comment on above: Malignant melanoma o f back (Primary Dx) Procedures Date Procedure Procedure Detail Performing Clinician Start: 03-02-2025 CBC AND ELECTRONIC DIFF Ifeoma Rex Asim CRA OFFICER-[employer] Work Phone: Start: 03-02-2025 Complete blood count with white cell differential, automated Ifeoma Rex sAim CRA OFFICER-[employer]OR [employer] Work Phone: Start: 03-02-2025 Comprehensive metabo lic panel Ifeoma Larson CRA OFFICER-[employer]OR [employer] Work Phone: Start: 05-28-2024 Nerve conduction lev dies 5-6 studies Gail Chana Work Phone: Start: 04-20-2024 Radex spine lumbosac ral minimum 4 views Gail Calderon Work Phone: Start: 03-02-2024 CBC AND ELECTRONIC DIFF Felicitas Puckett MD, PhD Work Phone: Start: 03-02-2024 Complete blood count with white cell differential, automated Felicitas Puckett MD, PhD Work Phone: Start: 03-02-2024 Comprehensive metabo lic panel Felicitas Puckett MD, PhD Work Phone: Start: 06-30-2022 STREP A MOLECULAR (POC) Ita Ramos CRA OFFICER.[employer] Work Phone: Start: 02-07-2022 Screening mammography D kaylee Delaney Work Phone: Plan of Treatment Date Care Activity Detail Author Start: 07-01-2028 Tetanus vaccination TETANUS [facility] Start: 07-01-2028 Urine microalbumin profile [facility] Start: 05-09-2025 Influenza vaccination O [facility]O [facility] Start: 03-02-2025 End: 03-02-2025 Complete blood count with white cell differential, automated CBC, EDIF, PLATELET Lab Routine Malignant melanoma of back Expected: 03/02/2025, Expires: 03/02/2025 [facility] Comment on above: Expected: 03/02/2025 , Expires: 03/02/2025 Start: 03-02-2025 End: 03-02-2025 Comprehensive metabolic 2000 panel - Serum or Plasma COMPREHENSIVE METABOLIC PANEL Lab Routine Malignant melanoma of back Expected: 03/02/2025, Expires: 03/02/2025 [facility] Comment on above: Expected: 03/02/2025 , Expires: 03/02/2025 Start: 03-02-2025 End: 03-02-2025 Lactate dehydrogenase [Enzymatic activity/volume] in Serum or Plasma LACTATE DEHYDROGENASE Lab Routine Malignant melanoma of back Expected: 03/02/2025, Expires: 03/02/2025 [facility] Comment on above: Expected: 03/02/2025 , Expires: 03/02/2025 Start: 03-02-2025 End: 03-02-2025 Clinical Support Encounter [facility] Start: 02-18-2025 Screening for malign ant neoplasm of breast MAMMOGRAM SCREENING DISCUSSION [facility] Start: 06-29-2024 End: 06-29-2024 Telemedicine consultation with patient 06/29/2024 4:30 PM EDT Telemedicine [facility] [address] [id number] Felicitas Puckett MD, PhD [address] [phone] [facility] Start: 05-28-2024 End: 05-28-2024 ambulatory 05/28/2024 1:05 PM EDT Procedure Neurology [address] [place] [address] Numbness and tingling of foot [R20.0, R20.2] Neurology Comment on above: Numbness and tinglin g of foot [R20.0, R20.2] Start: 05-09-2024 Covid-19 Vaccine ( season) Covid-19 Vaccine () [facility] Start: 05-09-2024 Covid-19 Vaccine ( season) Covid-19 Vaccine ( season) [facility] Start: 05-09-2024 Influenza vaccination [facility] Start: 04-20-2024 End: 04-20-2024 Patient encounter procedure 04/20/2024 8:15 AM EDT Office Visit Podiatry [address] [place] [address] Gail Calderon [address] [place] [address] Right foot pain/numbness Podiatry Comment on above: Right foot pain/numb ness Start: 03-03-2024 End: 03-03-2024 Complete blood count with white cell differential, automated CBC, EDIF, PLATELET Lab Routine Malignant melanoma of back Encounter for follow-up surveillance of melanoma Expected: 03/03/2024 (Approximate), Expires: 03/03/2024 [facility] Comment on above: Expected: 03/03/2024 (Approximate), Expires: 03/03/2024 Start: 03-03-2024 End: 03-03-2024 Comprehensive metabolic 2000 panel - Serum or Plasma COMPREHENSIVE METABOLIC PANEL Lab Routine Malignant melanoma of back Encounter for follow-up surveillance of melanoma Expected: 03/03/2024 (Approximate), Expires: 03/03/2024 [facility] Comment on above: Expected: 03/03/2024 (Approximate), Expires: 03/03/2024 Start: 03-03-2024 End: 03-03-2024 Lactate dehydrogenase [Enzymatic activity/volume] in Serum or Plasma LACTATE DEHYDROGENASE Lab Routine Malignant melanoma of back Encounter for follow-up surveillance of melanoma Expected: 03/03/2024 (Approximate), Expires: 03/03/2024 [facility] Comment on above: Expected: 03/03/2024 (Approximate), Expires: 03/03/2024 Start: 03-02-2024 End: 03-02-2024 Clinical Support Encounter [facility] Start: 09-18-2023 Liquid based cervica l cytology screening [facility] Start: 08-31-2023 Urine microalbumin profile DTAP,TDAP,TD (2 - Td or Tdap) [facility] Start: 05-09-2023 COVID-19 VACCINE ( season) COVID-19 VACCINE () [facility] Start: 05-09-2023 Influenza vaccination INFLUENZ A VACCINE (Season Ended) [facility] Start: 03-04-2023 End: 03-04-2023 Complete blood count with white cell differential, automated CBC, EDIF, PLATELET Lab Routine Malignant melanoma of back Expected: 03/04/2023 (Approximate), Expires: 03/04/2023 [facility] Comment on above: Expected: 03/04/2023 (Approximate), Expires: 03/04/2023 Start: 03-04-2023 End: 03-04-2023 Comprehensive metabolic 2000 panel - Serum or Plasma COMPREHENSIVE METABOLIC PANEL Lab Routine Malignant melanoma of back Expected: 03/04/2023 (Approximate), Expires: 03/04/2023 [facility] Comment on above: Expected: 03/04/2023 (Approximate), Expires: 03/04/2023 Start: 03-04-2023 End: 03-04-2023 Lactate dehydrogenase [Enzymatic activity/volume] in Serum or Plasma LACTATE DEHYDROGENASE Lab Routine Malignant melanoma of back Expected: 03/04/2023 (Approximate), Expires: 03/04/2023 [facility] Comment on above: Expected: 03/04/2023 (Approximate), Expires: 03/04/2023 Start: 03-03-2023 End: 03-03-2023 Clinical Support Encounter Clinical Lab [facility] Start: 02-07-2023 Screening for malign ant neoplasm of breast MAMMOGRAM SCREENING DISCUSSION [facility] Start: 2023 Lipid panel LIPID SCREENING [facility] Start: 2023 Screening for malign ant neoplasm of breast Mammogram Screening [facility] Start: 05-09-2022 Influenza vaccination [facility] Start: 03-04-2022 End: 03-04-2022 Patient encounter procedure Clinical Lab [facility] Start: 07-18-2021 HPV TESTING HPV TESTING [facility] Start: 07-18-2021 PAP TESTING PAP TESTING [facility] Start: 07-18-2021 Screening for malign ant neoplasm of cervix Cervical Cancer Screening [facility] Start: 05-09-2021 Influenza vaccination INFLUENZA VACC INE (#1) [facility] Start: 04-25-2021 COVID-19 VACCINE (3 - Booster for Pfizer series) COVID-19 VACCINE (3 - Booster for Pfizer series) [facility] Start: 01-18-2021 COVID-19 VACCINE (3 - Pfizer series) COVID-19 VACCINE (3 - Pfizer series) [facility] Start: 01-16-2004 Screening for malign ant neoplasm of cervix CERVICAL CANCER SCREENING DISCUSSION [facility] Start: 2002 Hepatitis B vaccination HEP B VACCINE (1 of 3 - 19+ 3-dose series) [facility] Start: 2002 Hepatitis B Vaccine (1 of 3 - 19+ 3-dose series) Hepatitis B Vaccine (1 of 3 - 19+ 3-dose series) [facility] Start: 2002 Third diphtheria, tetanus and acellular pertussis (DTaP) vaccination TDAP (ADULT) [facility] Start: 2001 ANNUAL PCP TEAM ECONOMETRICIAN DEVIN DISEASE VISIT ANNUAL PCP TEAM CHRONIC DISEASE VISIT [facility] Start: 2001 Anxiety Screening Anxiety Screening [facility] Start: 2001 HEPATITIS C SCREENING HEPATITIS C [facility] Start: 2001 Hepatitis C screening Hepatitis C [facility] Start: 2001 SPIROMETRY SPIROMETRY [facility] Start: 2001 Tetanus vaccination TETANUS [facility] Start: 1998 HIV screening HIV SCREENING DISCUSSION [facility] Start: 1989 PNEUMOCOCCAL (1 - PCV) PNEUMOCOCCAL (1 - PCV) [facility] Start: 1983 COVID-19 VACCINE (#1) COVID-19 VACCI NE (#1) [facility] Start: 1983 HEPATITIS B (1 of 3 - 3-dose series) HEPATITIS B (1 of 3 - 3-dose series) [facility] Start: 1983 Hepatitis C antibody , confirmatory test HEPATITIS C VIRUS SCREENING [facility] Start: 1983 Hepatitis C screening HEPATITI S C VIRUS SCREENING [facility] End: 04-20-2025 EMG(NEURO/NI) EMG(NEURO/NI) EMG Routine Numbness and tingling of foot Acquired hallux limitus of left foot 1 Occurrences starting 04/20/2024 until 04/20/2025 [facility] Comment on above: 1 Occurrences starti ng 04/20/2024 until 04/20/2025 MG Breast - bilatera l Screening [facility] End: 06-27-2024 MR Lumbar spine WO and W contrast IV [facility] Work Phone: Comment on above: 1 Occurrences starti ng 06/27/2024 until 06/27/2024 Path report.final Dx Spec [facility] End: 05-20-2025 XR Foot - bilateral AP and Lateral and oblique XR FOOT GENERAL 3V AP/LAT/OBL BILATERAL Radiology Routine Numbness and tingling of foot Acquired hallux limitus of left foot 1 Occurrences starting 04/20/2024 until 05/20/2025 [facility] Work Phone: Comment on above: 1 Occurrences starti ng 04/20/2024 until 05/20/2025 XR Foot - bilateral AP and Lateral and oblique XR FOOT GENERAL 3V AP/LAT/OBL BILATERAL Radiology Routine Numbness and tingling of foot Acquired hallux limitus of left foot 04/20/2024 10:13 AM EDT [facility] End: 05-14-2025 XR Foot - right AP and Lateral and oblique XR FOOT GENERAL 3V AP/LAT/OBL RIGHT Radiology Routine Pain in right foot 1 Occurrences starting 04/14/2024 until 05/14/2025 [facility] Work Phone: Comment on above: 1 Occurrences starti ng 04/14/2024 until 05/14/2025 End: 05-20-2025 XR Lumbar spine Views W flexion and W extension XR LUMBAR MOTION 4V AP/LAT/ FLEX/EXT Radiology Routine Numbness and tingling of foot Acquired hallux limitus of left foot 1 Occurrences starting 04/20/2024 until 05/20/2025 [facility] Comment on above: 1 Occurrences starti ng 04/20/2024 until 05/20/2025 XR Lumbar spine View s W flexion and W extension XR LUMBAR MOTION 4V AP/LAT/ FLEX/EXT Radiology Routine Numbness and tingling of foot Acquired hallux limitus of left foot 04/20/2024 10:14 AM EDT [facility] Immunizations Immunization Date Immunization Notes Care Provider Adam olivarez 07-09-[address] Flora Delaney Work Phone: [facility] 07-09-2018 influenza virus vaccine, unspecified formulation Felicitas Puckett MD, PhD Work Phone: [facility] 07-01-2018 tetanus toxoid, redu robe diphtheria toxoid, and acellular pertussis vaccine, adsorbed Dr. Flora Delaney Work Phone: [facility] 07-01-2018 diphtheria, tetanus toxoids and acellular pertussis vaccine, unspecified formulation Dr. Flora Delaney Work Phone: [facility] Work Phone: 06-27-2014 influenza virus vaccine, unspecified formulation Felicitas Puckett MD, PhD Work Phone: [facility] 08-31-2013 tetanus toxoid, redu robe diphtheria toxoid, and acellular pertussis vaccine, adsorbed Ita Ramos APRN.DIRECTOR [employer]UD[employer]ENCE [employer]ETING Work Phone: [facility] 06-19-2013 influenza virus vaccine, unspecified formulation Ita Ramos APRN.DIRECTOR [employer]ETING Work Phone: [facility] 06-08-[address] Flora Delaney Work Phone: [facility] 06-08-2013 tetanus toxoid, redu robe diphtheria toxoid, and acellular pertussis vaccine, adsorbed Dr. Flora Delaney Work Phone: [facility] Payers Date Payer Category Payer Self-pay [id number] 2014 Managed Care (unspecified) MMO [id number] 2014 Unknown [employer] M [employer] [id number] 2014-Present [address] [place] [address] [id number] 2014 Unknown [id number] 2014 Unknown [id number] 1983 Unknown [id number] 1983 Unknown [id number] 1983 Unknown [id number] 1983 Unknown [id number] 1983 Unknown [id number] Unknown [id number] Unknown [id number] Unknown [id number] Social History Date Type Detail Facility Tobacco smoking stat [facility] Never smoker [facility] Start: 03-06-2021 End: 03-02-2025 Alcohol intake Current drinker of alcohol (finding) [facility] Start: 12-16-2016 Alcohol Comment 3 [facility] Start: 1985 Sex Assigned At Not on file [facility] Exposure to SARS-CoV -2 (event) Unable to assess [facility] Start: 12-03-2021 End: 09-18-2023 Tobacco smoking status NHIS Unknown if ever smoked [facility] Start: 09-02-2018 None [facility] Start: 1985 Sex Assigned At Female [facility] Start: 01-10-2015 End: 03-02-2024 Tobacco smoking status NHIS Never smoked tobacco [facility] Start: 01-10-2015 End: 03-02-2024 Tobacco use and exposure Smokeless tobacco non-user [facility] Work Phone: Start: 01-10-2015 Alcohol Comment Occasionally [facility] Start: 06-20-2022 End: 06-30-2022 Exposure to SARS-CoV-2 (event) Not sure [facility] Start: 03-03-2023 End: 03-02-2025 History of Social function [facility] Start: 03-03-2023 End: 03-02-2025 Tobacco use panel [facility] Adolescent depressio n screening assessment 1 [facility] Gender identity Identifies as fe male gender (finding) [facility] Start: 08-12-2014 Sex Female (finding) [facility] Goals Date Patient Goal Desired Activity /State Personal health goal Comment on above: Formatting of this n ote might be different from the original. Physical therapy: STGs: to be achieved in 1 visit. 1. Patient will be knowledgeable about the components of congestive therapy in order to prevent progression of lymphedema symptoms. Met 2. Patient will be independent with use of a compression sleeve and gauntlet in order to prevent arm swelling while exercising in the gym. Met 3. Patient will be able to perform self manual lymphatic drainage of the left arm in order to improve lymphatic transport and reduce arm swelling. Met Comment on above: Formatting of this n ote might be different from the original. Physical therapy: STGs: to be achieved in 1 visit. 1. Patient will be knowledgeable about the components of congestive therapy in order to prevent progression of lymphedema symptoms. Met 2. Patient will be independent with use of a compression sleeve and gauntlet in order to prevent arm swelling while exercising in the gym. Met 3. Patient will be able to perform self manual lymphatic drainage of the left arm in order to improve lymphatic transport and reduce arm swelling. Met Clinical Notes 04-06-2013 to 03-02-2025 Felicitas Puckett MD, PhD - 03/02/2025 8:40 AM EDTPatient InstructionsShyam Montes MD - 08/18/2024 1:00 PM Rico Sy DO - 05/28/2024 12:53 PM EDTPatient InstructionsPatient Instructions Note Date & Type Note Facility 03-02-2025 History of Presen t illness Narrative Images from the original note were not included. [facility] Mrs. Nelson is 40 y.o. 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 Chief Complaint Patient presents with Melanoma 1 year follow-up History of Present Illness: Current therapy: Observation, s/p resection Interval history: Since last visit, she [facility] for right sided paresthesia for concern for lumbar radiculopathy. Symptoms present in the right foot. No radicular pain. No obvious spine pathology. An EMG was completed with no issue. No evidence of nerve root impingement. Today, 03/02/25: Ms. Nelson presents with her for evaluation while on active surveillance. Overall, she is doing well. She endorses intermittent constipation that she attributes to taking semaglutides. Her right foot paraesthesia is stable and unchanged. She states that she is still able to do ADLs. She denies taking medication for it. She notes that she sits crossed-legged in the car. 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 She states she had two lesions that were biopsied; one was mildly atypical and the other was severely atypical that will be further analyzed. She is excited for vacation at [place] at the end of March 2025. Denies any headaches, nausea, SOB, cough, night sweats, abdominal discomfort, diarrhea, change in appetite, lack of energy, myalgias, arthralgias, weakness, or new medical issues. Melanoma history: She has been undergoing yearly dermatological examination since 2007 and during her first noticed a change in her mole. She brought it up to her PCP 06/2013 who referred her to a launch operator. She delivered a healthy child 12/2013, then underwent a biopsy on 11/16/2013 of left mid-back with biopsy ([id number]), reviewed at [facility] on 03/25/2014. Patient Active Problem List Diagnosis Date Noted Obesity: body mass index of 35.0-39.9 03/06/2021 Allergy to IVP dye 05/16/[address] scan 02/29/2016 Liver lesion 02/29/2016 Observation for suspected malignant neoplasm 03/13/2015 Malignant melanoma of back 09/07/2014 11/16/2013 left mid-back, biopsy ([id number]), reviewed at [facility] on 03/25/2014- malignant melanoma, possibly nodular type, tumor thickness at least 1.78 mm, Moose IV, no ulceration, peripheral and deep margins involved by invasive melanoma, mitotic count is 1/mm2, vertical growth phase present 11/25/2013 biopsy ([id number])- mildly dysplastic compound nevus, inked margins free in planes of sections examined 12/08/2013 skin, left upper back, excision & left axillary SLN lymphadenectomy ([id number]): 03/21/14 pathology was reviewed at [facility] ([id number]) Wide excision: scar, inked margins are free in planes of sections examined. [place] lymph node, left axilla, lymphadenectomy: focus of [...] disease (0/34) 11/04/14 right mid upper back ([id number]): mildly dysplastic compound nevus Right lateral upper back: Compound nevus 02/17/15 skin biopsies ([id number]) Left lalteral abdomen: Compound nevus Right 2nd toe: Acral compound nevus Left lower abdomen: Moderately dysplastic junctional nevus. 03/21/15 wide excision ([id number]): A. Left lower abdomen: Negative for residual neoplasm. B. Right mid upper back: Focal recurrent nevus; negative margins. 04/12/16 mid chest, shave removal ([id number]): Atypical nevi. Past Medical History: Past Medical History: Diagnosis Date Malignant melanoma of back 09/07/2014 11/16/2013 left mid-back, biopsy ([id number]), reviewed at [facility] on 03/25/2014- malignant melanoma, possibly nodular type, tumor thickness at least 1.78 mm, Moose IV, no ulceration, peripheral and deep margins involved by invasive melanoma, mitotic count is 1/mm2, vertical growth phase present 11/25/2013 biopsy ([id number])- mildly dysplastic compound nevus, inked margins free in planes Past Surgical History: Past Surgical History: Procedure Laterality Date EXCISION LOCAL WIDE Left 02/09/2024 back DILATION AND CURETTAGE 10/10/2017 [facility]; D&C for miscarriage LYMPH NODE DISSECTION Left 04/2014 axilla BIOPSY Left 11/16/2013 left mid-back postive for melanoma BX LYMPH NODE Right 11/2013 axilla APPENDECTOMY 2002 FOOT SURGERY Left Medications/Allergies: Medications: Current Outpatient Medications Medication Sig Ascorbic Acid (VITAMIN C PO) take 1,000 mg by mouth daily. SEMAGLUTIDE-WEIGHT MANAGEMENT SC Inject under the skin once a week. Sertraline 50 MG tablet Take 1 tablet by mouth daily. Sertraline 50 MG tablet TAKE 1 TABLET DAILY (Patient not taking: Reported on 03/02/2025) Allergies: Allergies Allergen Reactions Ivp Dye, Iodine [...] Brother Alive Hansel Alive MGM (Not Specified) No partnership data on file Review of Systems: Review of systems was performed with the patient at today's visit and is negative except for those items mentioned in the interval history. Physical Examination: Blood pressure 121/61, pulse 78, temperature 97.8 F (36.6 C), temperature source Oral, resp. rate 18, height 1.688 m (5' 6.46), weight 91.1 kg (200 lb 12.8 oz), SpO2 99%, currently . PS= 0 DS=20 (03/06/21), 15 (03/04/22) Physical exam limited due to telehealth visit. Previous exam listed for reference. General The patient is alert and oriented [...] well healed, no concern for disease recurrence. New incision site is healing well. Lymph Nodes No axillary or inguinal adenopathy. Psychiatric Appropriate for age and clinical situation. Serum Labs/Scans: Lab Results Component Value Date WBC 6.67 03/02/2025 HGB 13.7 03/02/2025 HCT 40.3 03/02/2025 PLATELET 202 03/02/2025 MCV 84.7 03/02/2025 Lab Results Component Value Date SODIUM 139 03/02/2025 SODIUM 140 12/16/2018 POTASSIUM 3.9 03/02/2025 POTASSIUM 4.2 12/16/2018 CHLORIDE 107 03/02/2025 CHLORIDE 108 12/16/2018 CO2 28 03/02/2025 CO2 22 12/16/2018 BUN 13 03/02/2025 BUN 18 12/16/2018 CREATSERUM 0.64 03/02/2025 CREATSERUM 0.69 12/16/2018 CREATSERUM 0.92 12/15/2017 Lab Results Component Value Date ALT 11 03/02/2025 ALT 19 12/16/2018 AST 13 03/02/2025 AST 21 12/16/2018 ALKPHOS 55 03/02/2025 ALKPHOS 89 12/16/2018 BILITOTAL 0.5 03/02/2025 BILITOTAL 0.4 12/16/2018 LDH 119 03/02/2025 LDH 148 12/16/2018 CALCIUM 9.0 03/02/2025 CALCIUM 9.7 12/16/2018 Lab Results Component Value Date TP 7.0 03/02/2025 TP 7.9 12/16/2018 ALBUMIN 4.4 03/02/2025 ALBUMIN 4.5 12/16/2018 Radiology MRI L spine: 06/27/24 IMPRESSION: No acute abnormality. No suspicious osseous lesion. Xray L spine w/bending 04/20/24: FINDINGS: There are five [id number] lumbar vertebrae. No fracture or subluxations are noted. No change in alignment of the lumbar spine with lateral extension and lateral flexion. The disc spaces are well preserved. There is mild osteophyte formation. XR foot 04/20/24: IMPRESSION: DEGENERATIVE CHANGES OF THE FIRST MTP JOINT BILATERALLY, MORE SEVERE ON THE RIGHT. STATUS POST BUNIONECTOMY ON THE LEFT. BILATERAL PES CAVUS. Mammogram 02/07/22: CT chest 01/25/20: CT abd/pelvis 01/25/20: MRI brain 01/25/20: Assessment/Plan: Marcos nelson is a 40 y.o. 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 Melanoma: [id number] Stage IIIA Treatment: s/p primary excision and [...] time and will remain on surveillance 03/04/22. 03/02/24 Labs were reviewed and physical exam completed. She has no evidence of recurrent disease at this time and will remain on surveillance. No abnormalities seen on examination of her foot with inspection, palpation or ROM. Will refer to podiatry for further evaluation. Pt agreeable. 03/02/25: Pt presents for evaluation while on active surveillance. Labs reviewed and physical exam completed. All stable. Her right foot paraesthesia is stable and unchanged. Pt has no evidence of disease recurrence. She was originally diagnosed with melanoma in 2013. She will continue to see dermatology and her PCP on a regular basis. She will continue with PRN visits. Scans: CT (12/15/17) were reviewed, and were DA. Plan for yearly scans, however this was deniend by her insurance company in 02/2021. At this time, we will plan for scans if clinically indicated. Back pain and foot pain: xray of foot and L spine 04/20/24 wnl, MRI l spine 06/27/24 without acute abnormality. If discomfort persists or worsens, pt should notify us. Recommended she see the spine team for further work up. Psychosocial: During clinic 03/06/21, patient reports running [...] during peak hours, sunblock, sunglasses, and hats. Diet and exercise (at least 30 mins daily) reviewed with patient. RTC: PRN, if symptoms worsen or fail to improve. Documented by Chrissie Valerio, for Dr. Puckett on 03/02/25 9:18 AM All medical record entries made by the Iman were at my direction and personally dictated by me, Felicitas Puckett MD, PhD . I have reviewed and edited the chart and agree that the record accurately reflects my personal performance of the history, physical exam, assessment and plan. I have also personally directed, reviewed, and agree with the discharge instructions. Felicitas Puckett MD, PhD business development director documented in this encounter [facility] 03-02-2025 Instructions Maritza Urbano RN - 03/02/2025 8:40 AM EDT Contacting Our Office For any questions or concerns related to your oncology care that need addressed before your next scheduled visit please call our clinic office at [phone]. For any symptom management please call our office to directly speak with a nurse and refrain from using [facility], as we may need additional details regarding your symptoms. You may utilize [facility] for non-urgent questions. These messages are not checked on evenings, weekends, and holidays. We may ask you to send pictures of rashes or skin changes through [facility]. Clinic staff nurses are available to answer [...] call 911. Our office fax number is [phone] Preparing for your next clinic visit Please [...] that the outside facility faxes the results [phone] If you have been hospitalized and do not have a follow-up appointment with our office, please call to schedule at [phone]. documented in this encounter [facility] 08-18-2024 History of Presen t illness Narrative Images from the original note were not included. [facility] HISTORY OF PRESENT ILLNESS Referring provider for today's consult: Dr. Felicitas Puckett MD, PhD [address] [place] [address] Primary care provider: Dr. Flora Delaney Reason for consult: Right sided paresthesia Interval Hx: History of Present Illness: Marcos Nelson is a 39 y.o. female presenting today for evaluation of her right foot in the context of concern for lumbar radiculopathy. For one year, the patient has been experiencing paresthesia/dyesthesia of her right foot. Reports atypical, non-painful sensation to lateral aspect of her foot. Denies any weakness. No radicular pain. No balance issues. No bowel.bladder symptoms. She does have a history of melanoma diagnosed 10 years ago however has been doing well. She did see a wedger without any identifiable cause. Otherwise underwent EMG which was reassuring and non-conclusive. Subsequently had MRI of her lumbar spine and presents for evaluation. Overall symptoms are not terribly impactful. Only reports mild pain. Therapies: Physical Therapy: N/A Injections: n/A Spine Surgery: n/A Review of Systems: Review of Systems Past Medical History: She has a past medical history of Malignant melanoma of back (09/07/2014). She has no past medical history of Diabetes mellitus, Essential hypertension, benign, or Renal disease. Surgical History: has a past surgical history that includes appendectomy (2001); foot surgery (Left); biopsy (Left, 11/16/2013); lymph node dissection (Left, 04/2014); bx lymph node (Right, 11/2013); dilation and curettage (10/10/2017); and excision local wide (Left, 02/09/2024). Social History: reports that she has never smoked. She has never used smokeless tobacco. She reports current alcohol use. She reports that she does not use drugs. Social History Substance and Sexual Activity Drug Use No Social History Social History Narrative Lives with . 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 Family History: family history includes Cancer in her maternal grandmother; Heart Disease - Other in her father; Hypertension in her father; Lipid Disorder in her father; Other - Specify in her father and mother. Current Medications: has a current medication list which includes the following prescription(s): Ascorbic Acid (VITAMIN C PO), SEMAGLUTIDE-WEIGHT MANAGEMENT SC, and Sertraline 50 MG tablet. Allergies: is allergic to ivp dye, iodine containing. PHYSICAL EXAMINATION Smoking Status Never There is no height or weight on file to calculate BMI. GENERAL: NAD, good eye contact, well appearing, responds appropriately. HEENT: Atraumatic, normocephalic. EOMI grossly intact to tracking examiner, sclerae anicteric. THORACIC/PULM: No visible chest wall deformities. No tachypnea, no accessory muscle use at rest. CARDIO & VASC: Regular rate and rhythm to peripheral pulse. SKIN: Intact. No rashes, bruises, or ulcers over visible skin PSYCH: Affect appears normal, mood congruent. MUSCULOSKELETAL & NEUROLOGIC: Lumbar Spine Observation: Visible Spine Deformity: No Palpation: Tenderness to percussion of the spinous processes: No Tenderness to palpation of the lumbar paraspinal muscles: No Tenderness over either trochanteric bursa: No Range of Motion: Flexion: Full Extension: Full Lateral Bending: Full Facet-loading (ext with rotation): negative on Right, negative on Left Straight Leg Raise: negative on RLE, negative on LLE. Slump Test: negative on RLE, negative on LLE Strength: -/5 HF KE KF DF APF EHL Right 5 5 5 5 5 5 Left 5 5 5 5 5 5 Labs/Imaging Reviewed: Images and radiology reports personally reviewed. Diagnostic studies were also reviewed with and explained to patient using their images, reports, diagrams, and/or models. MRI Lumbar Spine (06/27/2024): shows L3-4 and L4-5 DDD; no significant central or foraminal narrowing Lab Results Component Value Date SODIUM 139 03/02/2024 POTASSIUM 4.1 03/02/2024 CHLORIDE 106 03/02/2024 CO2 28 03/02/2024 BUN 11 03/02/2024 CREATSERUM 0.68 03/02/2024 GLUCOSE 80 03/02/2024 Lab Results Component Value Date WBC 6.31 03/02/2024 HGB 14.9 03/02/2024 HCT 41.8 03/02/2024 PLATELET 197 03/02/2024 MCV 81.5 03/02/2024 No results found for: SEDRATE No results found for: CRP PATIENT REPORTED OUTCOME MEASURES: No data to display Procedure: ASSESSMENT AND PLAN ICD-10-CM 1. Neuropathy G62.9 Marcos Nelson is a 39 y.o. female presenting with right sided paresthesia in her foot. At this time, no obvious spine pathology that would explain her symptoms. EMG reviewed without issue. Otherwise no obvious nerve root impingement. Overall unclear etiology of her symptoms however no spine issue likely leading to her presentation Follow up: PRN Educated the patient about continuing to perform their usual activities of daily living and to avoid prolonged rest as a means for pain control. Patient knows to call or go to the ED if she has any bowel or bladder incontinence, worsening muscle weakness or worsening of her symptoms. The natural history and course of the symptomatology of her diagnosis was discussed in detail with the patient. Plan of care discussed. All questions answered. The patient verbalized understanding and agreed to the treatment plan formulated for this visit. Thank you for the opportunity of seeing your patient today. Sincerely, Shyam Montes MD Pool Table Operator Department of Anesthesiology documented in this encounter [facility] 05-28-2024 Note HNO ID: [id number] Author: RICO DEL VALLE, DO Service: ? Author Type: Physician Type: Progress Notes Filed: 05/28/2024 13:50 Note Text: UNIVERSAL PROTOCOL / SAFETY CHECKLIST Procedure to be Performed: EMG Sign In: A Moment of CARE was completed. Personnel directly involved with the procedure wore the appropriate PPE (Personal Protective Equipment). Patient/Surrogate Stated/Verified: PATIENT VERIFIED(optional for EMERGENT procedures): Patient name, Date of , Relevant allergies, and The intended procedure Time Out Communication: Intended patient and procedure match the source documents. Correct side/site marked and visible. Sign Out: SIGN OUT (optional for EMERGENT procedures): Post-procedure follow-up management communicated and Plan of Care Visit completed when applicable. Zita Diaz branch employment coordinator Rene Del Valle DO [facility] 05-28-2024 History of Presen t illness Narrative UNIVERSAL PROTOCOL / SAFETY CHECKLIST Procedure to be Performed: EMG Sign In: A Moment of CARE was completed. Personnel directly involved with the procedure wore the appropriate PPE (Personal Protective Equipment). Patient/Surrogate Stated/Verified: PATIENT VERIFIED(optional for EMERGENT procedures): Patient name, Date of , Relevant allergies, and The intended procedure Time Out Communication: Intended patient and procedure match the source documents. Correct side/site marked and visible. Sign Out: SIGN OUT (optional for EMERGENT procedures): Post-procedure follow-up management communicated and Plan of Care Visit completed when applicable. Zita Diaz branch employment coordinator Rene Del Valle DO documented in this encounter [facility] 04-26-2024 Telephone encounter Note Pt notified and verbalizes understanding. EMG scheduled. Ines Mancuso MA [facility] 04-26-2024 Miscellaneous Notes Pt notified and verbalizes understanding. EMG scheduled. Ines Mancuso MA Called patient with below results. No response. Left VM. Daphne Chiang LPN Please call patient to inform her that her xrays of the back show mild lumbar arthritis. Check emg to see if numbness is coming from the back. Her xrays of the foot shows mild arthritis in the great toe joint Gail Calderon DPM documented in this encounter [facility] 04-26-2024 Telephone encounter Note Called patient with below results. No response. Left VM. Daphne Chiang LPN [facility] 04-24-2024 Telephone encounter Note Please call patient to inform her that her xrays of the back show mild lumbar arthritis. Check emg to see if numbness is coming from the back. Her xrays of the foot shows mild arthritis in the great toe joint Gail Calderon DPM [facility] Work Phone: 04-20-2024 Note HNO ID: [id number] Author: GAIL CALDERON, ? Service: ? Author Type: Physician Type: Progress Notes Filed: 04/20/2024 09:47 Note Text: Initial Podiatric Office Visit: Chief Complaint: This 39 year old female who presents with chief complaint:numbness of right lower extremity HPI Patient presents to clinic for evaluation of right foot. Complains of numbness to the lateral aspect of right foot. 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 She states the numbness is mostly along the lateral aspect of right foot. Has noticed that this has been going on for about one year. No pain. No prior imaging. Has history of melignant melanoma that she sees the [facility] in [place]. PAIN EVALUATION No data found in the last 1 encounters. No results found for: HBA1C PCP: Flora Delaney MD PAST MEDICAL HISTORY No date: Childhood asthma Comment: NO INHALER SINCE AGE 16 04/11/2014: Depression No date: Malignant melanoma (HCC) Comment: stage IIIa, [facility] Current Outpatient Medications Medication Sig semaglutide (OZEMPIC) 1 mg/0.75 ml subcutaneous pen injector Inject subcutaneously one time a week. etonogestrel/ethinyl estradiol (NUVARING VAGINAL) Use vaginally. sertraline (ZOLOFT) 50 mg tablet Take 1 tablet by mouth once daily. MULTIVITAMIN ORAL Take by mouth. Desogestrel-Ethinyl Estradiol (APRI) 0.15-0.03 mg per tablet Take 1 tablet by mouth once daily. (Patient not taking: Reported on 06/30/2022) ASCORBIC ACID (VITAMIN C ORAL) Take by mouth. (Patient not taking: Reported on 06/30/2022) CALCIUM CARBONATE/VITAMIN D3 (VITAMIN D-3 ORAL) Take by mouth. No current facility-administered medications for this visit. ALLERGIES Allergen Reactions Diatrizoic Acid Rash PAST SURGICAL HISTORY No date: APPENDECTOMY No date: PAST SURGICAL HISTORY OF Comment: LEFT FOOT No date: PAST SURGICAL HISTORY OF Comment: Complete Lymph Node Disection (left arm) FAMILY HISTORY Problem Relation Age of Onset Arthritis Father Arthritis Maternal Grandmother Cancer Maternal Grandfather Hypertension Father Lipids Father Cancer Maternal Grandmother Social History Tobacco Use Smoking status: Never Smokeless tobacco: Never Substance Use Topics Alcohol use: Yes Comment: Occasionally Drug use: No REVIEW OF SYSTEMS GENERAL: Negative for Malaise, significant weight loss, fever RESPIRATORY: Negative for cough, wheezing and shortness of breath CARDIOVASCULAR: Negative for chest pain, leg swelling and palpitations GI: Negative for abdominal discomfort, blood in stools or black stools and change in bowel habits : Negative for dysuria, frequency and incontinence MUSCULOSKELETAL: Negative for joint pain or swelling, back pain, and muscle pain. SKIN: Negative for lesions, rash, and itching. HEMATOLOGY/LYMPHOLOGY Negative for prolonged bleeding, bruising easily, and swollen nodes. ENDOCRINE: Negative for cold or heat intolerance, polyuria, polydipsia and goiter. NEURO: negative Physical Exam: Constitutional: Pt is a well developed 39 year old female who is alert, oriented and cooperative Eyes: Following during examination. No redness or drainage. Respiratory: RR normal and nonlabored. Even breathing. No evidence of distress or shortness of breath. Psychology: Patient is engaged during conversation. Normal affect and mood. Does not appear depressed or anxious during encounter. Vascular: Dorsalis pedis and posterior tibial pulses palpable as b/l Capillary Fill time < 5 seconds to digits 1-5 b/l Skin temperature warm to warm proximal to distal b/l Hair growth present to digits Neurological: intact light touch/epicritic sensation Vibratory sensation intact to hallux b/l intact protective sensation no significant neurological deficits Dermatological: Nails 1-5 b/l appear normal. Webspaces clean and dry 1-4 b/l. Skin appears well hydrated and supple. good color, texture, turgor. No open lesions present. No callosities present. Musculoskeletal/Orthopaedic: Patient has no pain to palpation of b/l feet Foot type is neutral structurally AJ ROM is full with knee extended and flexed 1st MPJ is decreased to left foot. MTJ, STJ are full and free of pain and crepitus. +5/5 muscle strength dorsiflexion, plantarflexion, inversion, eversion b/l Radiographs: ordered ASSESSMENT: (R20.0, R20.2) Numbness and tingling of foot (primary encounter diagnosis) (M20.5X2) Acquired hallux limitus of left foot PLAN: 1. History and physical examination performed. 2. Discussed complaint of numbness to right lateral foot. I would like to obtain xrays of b/l feet and would like to order xrays of lumbar spine. 3. In addition, recommend emg to evaluate for any neurologic etiology stemming from lower back. 4. Will call with results (more content not included)... [facility] 04-20-2024 History of Presen t illness Narrative Initial Podiatric Office Visit: Chief Complaint: This 39 year old female who presents with chief complaint:numbness of right lower extremity HPI Patient presents to clinic for evaluation of right foot. Complains of numbness to the lateral aspect of right foot. 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 She states the numbness is mostly along the lateral aspect of right foot. Has noticed that this has been going on for about one year. No pain. No prior imaging. Has history of melignant melanoma that she sees the [facility] in [place]. PAIN EVALUATION No data found in the last 1 encounters. No results found for: HBA1C PCP: Flora Delaney MD PAST MEDICAL HISTORY No date: Childhood asthma Comment: NO INHALER SINCE AGE 16 04/11/2014: Depression No date: Malignant melanoma (HCC) Comment: stage IIIa, [facility] Current Outpatient Medications Medication Sig semaglutide (OZEMPIC) 1 mg/0.75 ml subcutaneous pen injector Inject subcutaneously one time a week. etonogestrel/ethinyl estradiol (NUVARING VAGINAL) Use vaginally. sertraline (ZOLOFT) 50 mg tablet Take 1 tablet by mouth once daily. MULTIVITAMIN ORAL Take by mouth. Desogestrel-Ethinyl Estradiol (APRI) 0.15-0.03 mg per tablet Take 1 tablet by mouth once daily. (Patient not taking: Reported on 06/30/2022) ASCORBIC ACID (VITAMIN C ORAL) Take by mouth. (Patient not taking: Reported on 06/30/2022) CALCIUM CARBONATE/VITAMIN D3 (VITAMIN D-3 ORAL) Take by mouth. No current facility-administered medications for this visit. ALLERGIES Allergen Reactions Diatrizoic Acid Rash PAST SURGICAL HISTORY No date: APPENDECTOMY No date: PAST SURGICAL HISTORY OF Comment: LEFT FOOT No date: PAST SURGICAL HISTORY OF Comment: Complete Lymph Node Disection (left arm) FAMILY HISTORY Problem Relation Age of Onset Arthritis Father Arthritis Maternal Grandmother Cancer Maternal Grandfather Hypertension Father Lipids Father Cancer Maternal Grandmother Social History Tobacco Use Smoking status: Never Smokeless tobacco: Never Substance Use Topics Alcohol use: Yes Comment: Occasionally Drug use: No REVIEW OF SYSTEMS GENERAL: Negative for Malaise, significant weight loss, fever RESPIRATORY: Negative for cough, wheezing and shortness of breath CARDIOVASCULAR: Negative for chest pain, leg swelling and palpitations GI: Negative for abdominal discomfort, blood in stools or black stools and change in bowel habits : Negative for dysuria, frequency and incontinence MUSCULOSKELETAL: Negative for joint pain or swelling, back pain, and muscle pain. SKIN: Negative for lesions, rash, and itching. HEMATOLOGY/LYMPHOLOGY Negative for prolonged bleeding, bruising easily, and swollen nodes. ENDOCRINE: Negative for cold or heat intolerance, polyuria, polydipsia and goiter. NEURO: negative Physical Exam: Constitutional: Pt is a well developed 39 year old female who is alert, oriented and cooperative Eyes: Following during examination. No redness or drainage. Respiratory: RR normal and nonlabored. Even breathing. No evidence of distress or shortness of breath. Psychology: Patient is engaged during conversation. Normal affect and mood. Does not appear depressed or anxious during encounter. Vascular: Dorsalis pedis and posterior tibial pulses palpable as b/l Capillary Fill time < 5 seconds to digits 1-5 b/l Skin temperature warm to warm proximal to distal b/l Hair growth present to digits Neurological: intact light touch/epicritic sensation Vibratory sensation intact to hallux b/l intact protective sensation no significant neurological deficits Dermatological: Nails 1-5 b/l appear normal. Webspaces clean and dry 1-4 b/l. Skin appears well hydrated and supple. good color, texture, turgor. No open lesions present. No callosities present. Musculoskeletal/Orthopaedic: Patient has no pain to palpation of b/l feet Foot type is neutral structurally AJ ROM is full with knee extended and flexed 1st MPJ is decreased to left foot. MTJ, STJ are full and free of pain and crepitus. +5/5 muscle strength dorsiflexion, plantarflexion, inversion, eversion b/l Radiographs: ordered ASSESSMENT: (R20.0, R20.2) Numbness and tingling of foot (primary encounter diagnosis) (M20.5X2) Acquired hallux limitus of left foot PLAN: 1. History and physical examination performed. 2. Discussed complaint of numbness to right lateral foot. I would like to obtain xrays of b/l feet and would like to order xrays of lumbar spine. 3. In addition, recommend emg to evaluate for any neurologic etiology stemming from lower back. 4. Will call with results. 5. 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 Recommend firm sole shoe. Xrays ordered Gail Calderon DPM Podiatry [address] [facility] [address] Dept: [phone] Dept AMB ROOMING INTAKE FLOWSHEET DATA Risk Screening Do you have concerns about personal safety or safety in the home?: No Patient presents with: Right Foot - New, Numbness Daphne Chiang LPN documented in this encounter [facility] 04-20-2024 Note HNO ID: [id number] Author: DAPHNE CHIANG LPN Service: ? Author Type: LICENSED NURSE Type: Progress Notes Filed: 04/20/2024 09:47 Note Text: AMB ROOMING INTAKE FLOWSHEET DATA Risk Screening Do you have concerns about personal safety or safety in the home?: No Patient presents with: Right Foot - New, Numbness Daphne Chiang LPN [facility] 04-20-2024 History of Presen t illness Narrative Radiology Service Progress Note PATIENT NAME: Marcos Nelson DATE OF SERVICE: April 20, 2024 TIME: 11:37 AM PATIENT IDENTITY VERIFICATION COMPLETED USING TWO (2) IDENTIFIERS: Name and Date of confirmed by patient verbally. FALL SCREENING: Has the patient had 2 falls in the last year or 1 fall with injury or currently using an Ambulatory Assistive Device (Walker, Cane, Wheelchair, Crutches, etc.)? No PATIENT GENDER DATA: Female. status: : No status: NO. PATIENT RELEVANT IMPLANT DATA REVIEWED: Not Applicable PATIENT PRESENTS WITH AN IMPLANTABLE OR ATTACHED PLATING MACHINE OPERATOR: No RADIOLOGY DEPARTMENT: General X-ray: Exam(s) Completed: Spine X-Ray(s): Lumbar AP / LAT / L5-S1 / FLEX-EXT Lower Extremity X-Ray(s): Feet, Bilateral and Wt. Bearing, NO L-5S-1 ORDERED PERIPHERAL IV DATA: Not applicable SIGNED BY: RT Tori(Bean) April 20, 2024 11:37 AM documented in this encounter [facility] 04-20-2024 Note HNO ID: [id number] Author: PAO GUARDADO RT(Bean) Service: ? Author Type: Technologist Type: Progress Notes Filed: 04/20/2024 11:37 Note Text: Radiology Service Progress Note PATIENT NAME: Marcos Nelson DATE OF SERVICE: April 20, 2024 TIME: 11:37 AM PATIENT IDENTITY VERIFICATION COMPLETED USING TWO (2) IDENTIFIERS: Name and Date of confirmed by patient verbally. FALL SCREENING: Has the patient had 2 falls in the last year or 1 fall with injury or currently using an Ambulatory Assistive Device (Walker, Cane, Wheelchair, Crutches, etc.)? No PATIENT GENDER DATA: Female. status: : No status: NO. PATIENT RELEVANT IMPLANT DATA REVIEWED: Not Applicable PATIENT PRESENTS WITH AN IMPLANTABLE OR ATTACHED PLATING MACHINE OPERATOR: No RADIOLOGY DEPARTMENT: General X-ray: Exam(s) Completed: Spine X-Ray(s): Lumbar AP / LAT / L5-S1 / FLEX-EXT Lower Extremity X-Ray(s): Feet, Bilateral and Wt. Bearing, NO L-5S-1 ORDERED PERIPHERAL IV DATA: Not applicable SIGNED BY: Pao Guardado RT(R) April 20, 2024 11:[address] [facility] 03-02-2024 History of Presen t illness Narrative Images from the original note were not included. [facility] NOTE Mrs. Nelson is 39 y.o. 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 Chief Complaint Patient presents with Follow-up Malignant melanoma of back History of Present Illness: Current therapy: Observation, s/p resection Interval history: Ms. Nelson presents with her for a surveillance visit after completion of labs. She reports she continues to feel well and denies any concerns, except for some odd right foot pain. She said she had an excision completed on her back on 02/09/24 due to abnormal cells in a biopsy. She is scheduled for another removal this upcoming Friday. She denies fever, chills, night sweats, headaches, [...] PCP 06/2013 who referred her to a launch operator. She delivered a healthy child 12/2013, then underwent a biopsy on 11/16/2013 of left mid-back with biopsy ([id number]), reviewed at [facility] on 03/25/2014. Patient Active Problem List Diagnosis Date Noted Obesity: body mass index of 35.0-39.9 03/06/2021 Allergy to IVP dye 05/16/[address] scan 02/29/2016 Liver lesion 02/29/2016 Observation for suspected malignant neoplasm 03/13/2015 Malignant melanoma of back 09/07/2014 11/16/2013 left mid-back, biopsy ([id number]), reviewed at [facility] on 03/25/2014- malignant melanoma, possibly nodular type, tumor thickness at least 1.78 mm, Moose IV, no ulceration, peripheral and deep margins involved by invasive melanoma, mitotic count is 1/mm2, vertical growth phase present 11/25/2013 biopsy ([id number])- mildly dysplastic compound nevus, inked margins free in planes of sections examined 12/08/2013 skin, left upper back, excision & left axillary SLN lymphadenectomy ([id number]): 03/21/14 pathology was reviewed at [facility] ([id number]) Wide excision: scar, inked margins are free in planes of sections examined. [place] lymph node, left axilla, lymphadenectomy: focus of [...] disease (0/34) 11/04/14 right mid upper back ([id number]): mildly dysplastic compound nevus Right lateral upper back: Compound nevus 02/17/15 skin biopsies ([id number]) Left lalteral abdomen: Compound nevus Right 2nd toe: Acral compound nevus Left lower abdomen: Moderately dysplastic junctional nevus. 03/21/15 wide excision ([id number]): A. Left lower abdomen: Negative for residual neoplasm. B. Right mid upper back: Focal recurrent nevus; negative margins. 04/12/16 mid chest, shave removal ([id number]): Atypical nevi. Past Medical History: Past Medical History: Diagnosis Date Malignant melanoma of back 09/07/2014 11/16/2013 left mid-back, biopsy ([id number]), reviewed at [facility] on 03/25/2014- malignant melanoma, possibly nodular type, tumor thickness at least 1.78 mm, Moose IV, no ulceration, peripheral and deep margins involved by invasive melanoma, mitotic count is 1/mm2, vertical growth phase present 11/25/2013 biopsy ([id number])- mildly dysplastic compound nevus, inked margins free in planes Past Surgical History: Past Surgical History: Procedure Laterality Date EXCISION LOCAL WIDE Left 02/09/2024 back DILATION AND CURETTAGE 10/10/2017 [facility]; D&C for miscarriage LYMPH NODE DISSECTION Left 04/2014 axilla BIOPSY Left 11/16/2013 left mid-back postive for melanoma BX LYMPH NODE Right 11/2013 axilla APPENDECTOMY 2002 FOOT SURGERY Left Medications/Allergies: Medications: Current Outpatient Medications Medication Sig Ascorbic Acid (VITAMIN C PO) take 1,000 mg by mouth daily. SEMAGLUTIDE-WEIGHT MANAGEMENT SC Inject under the skin once a week. Sertraline 50 MG tablet Take 1 tablet [...] the interval history. Physical Examination: Blood pressure 129/72, pulse 80, temperature 97.9 F (36.6 C), temperature source Oral, resp. rate 16, height 1.676 m (5' 6), weight 107 kg (236 lb), SpO2 99%, currently . PS= 0 DS=20 (03/06/21), 15 [...] well healed, no concern for disease recurrence. New incision site is healing well. Lymph Nodes No axillary or inguinal adenopathy. Psychiatric Appropriate for age and clinical situation. Serum Labs/Scans: Lab Results Component Value Date WBC 6.31 03/02/2024 HGB 14.9 03/02/2024 HCT 41.8 03/02/2024 PLATELET 197 03/02/2024 MCV 81.5 03/02/2024 Lab Results Component Value Date SODIUM 139 03/02/2024 SODIUM 140 12/16/2018 POTASSIUM 4.1 03/02/2024 POTASSIUM 4.2 12/16/2018 CHLORIDE 106 03/02/2024 CHLORIDE 108 12/16/2018 CO2 28 03/02/2024 CO2 22 12/16/2018 BUN 11 03/02/2024 BUN 18 12/16/2018 CREATSERUM 0.68 03/02/2024 CREATSERUM 0.69 12/16/2018 CREATSERUM 0.92 12/15/2017 Lab Results Component Value Date ALT 11 03/02/2024 ALT 19 12/16/2018 AST 17 03/02/2024 AST 21 12/16/2018 ALKPHOS 60 03/02/2024 ALKPHOS 89 12/16/2018 BILITOTAL 0.7 03/02/2024 BILITOTAL 0.4 12/16/2018 LDH 145 03/02/2024 LDH 148 12/16/2018 CALCIUM 9.6 03/02/2024 CALCIUM 9.7 12/16/2018 Lab Results Component Value Date TP 7.9 03/02/2024 TP 7.9 12/16/2018 ALBUMIN 4.8 03/02/2024 ALBUMIN 4.5 12/16/2018 Mammogram 02/07/22: CT chest 01/25/20: CT abd/pelvis 01/25/20: MRI brain 01/25/20: Assessment/Plan: Marcos nelson is a 39 y.o. 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 Melanoma: [id number] Stage IIIA Treatment: s/p primary excision and [...] time and will remain on surveillance 03/04/22. 03/02/24 Labs were reviewed and physical exam completed. She has no evidence of recurrent disease at this time and will remain on surveillance. No abnormalities seen on examination of her foot with inspection, palpation or ROM. Will refer to podiatry for further evaluation. Pt agreeable. Scans: CT (12/15/17) were reviewed, and were [...] and hats. RTC: 1 year with serologies Ifeoma Larson, MSN, CRA OFFICER-DIRECTOR [employer]UD[employer]ENCE MARKET[employer] Nurse Practitioner Melanoma & Other Cutaneous Malignancies [facility] [place] [facility] We are committed to improving people's lives through personalized health documented in this encounter [facility] 03-02-2024 Instructions Maritza Urbano RN - 03/02/2024 9:00 AM EDT Return to clinic : 1 year Provider: Dr. Puckett Labs: yes Scans: no IV Treatment: no Referrals: Podiatry Fax number: [phone] Contacting Our Office For any questions or concerns related to your oncology care that need addressed before your next scheduled visit please call our clinic office at [phone]. For any symptom management please call our office to directly speak with a nurse and refrain from using [facility] [employer] [employer], as we may need additional details regarding your symptoms. You may utilize [facility] [employer] for non-urgent questions. These messages are not checked on evenings, weekends, and holidays. We may ask you to send pictures of rashes or skin changes through [facility]. Clinic staff nurses are available to answer [...] call 911. Our office fax number is [phone] Preparing for your next clinic visit Please [...] that the outside facility faxes the results [phone] If you have been hospitalized and do not have a follow-up appointment with our office, please call to schedule at [phone]. Melanoma and other Cutaneous Malignancies Support Group Our Support Group will be meeting the of every month. Located in the [facility], 7th floor, room 720. It will be from 6:30-7:30 pm. Hope to see you there! documented in this encounter [facility] 03-03-2023 History of Presen t illness Narrative Images from the original note [...] PCP 06/2013 who referred her to a launch operator. She delivered a healthy child 12/2013, then underwent a biopsy on 11/16/2013 of left mid-back with biopsy ([id number]), reviewed at [facility] on 03/25/2014. Patient Active Problem List Diagnosis Date Noted Obesity: body mass index of 35.0-39.9 03/06/2021 Allergy to IVP dye 05/16/[address] scan 02/29/2016 Liver lesion 02/29/2016 Observation for suspected malignant neoplasm 03/13/2015 Malignant melanoma of back 09/07/2014 11/16/2013 left mid-back, biopsy ([id number]), reviewed at [facility] on 03/25/2014- malignant melanoma, possibly nodular type, tumor thickness at least 1.78 mm, Moose IV, no ulceration, peripheral and deep margins involved by invasive melanoma, mitotic count is 1/mm2, vertical growth phase present 11/25/2013 biopsy ([id number])- mildly dysplastic compound nevus, inked margins free in planes of sections examined 12/08/2013 skin, left upper back, excision & left axillary SLN lymphadenectomy ([id number]): o 03/21/14 pathology was reviewed at [facility] ([id number]) o Wide excision: scar, inked margins are free in planes of sections examined. o [place] lymph node, left axilla, lymphadenectomy: focus of [...] disease (0/34) 11/04/14 right mid upper back ([id number]): mildly dysplastic compound nevus o Right lateral upper back: Compound nevus 02/17/15 skin biopsies ([id number]) Left lalteral abdomen: Compound nevus Right 2nd toe: Acral compound nevus Left lower abdomen: Moderately dysplastic junctional nevus. 03/21/15 wide excision ([id number]): A. Left lower abdomen: Negative for residual neoplasm. B. Right mid upper back: Focal recurrent nevus; negative margins. 04/12/16 mid chest, shave removal ([id number]): Atypical nevi. Past Medical History: Past Medical History: Diagnosis Date Malignant melanoma of back 09/07/2014 11/16/2013 left mid-back, biopsy ([id number]), reviewed at [facility] on 03/25/2014- malignant melanoma, possibly nodular type, tumor thickness at least 1.78 mm, Moose IV, no ulceration, peripheral and deep margins involved by invasive melanoma, mitotic count is 1/mm2, vertical growth phase present 11/25/2013 biopsy ([id number])- mildly dysplastic compound nevus, inked margins free in planes Past Surgical History: Past Surgical History: Procedure Laterality Date DILATION AND CURETTAGE 10/10/2017 [facility]; D&C for miscarriage LYMPH NODE DISSECTION Left [...] resp. rate 16, height 1.676 m (5' 6), weight 107.9 kg (237 lb 12.8 oz), [...] CT abd/pelvis 01/25/20: MRI brain 01/25/20: Assessment/Plan: Marcos nelson is a 38 y.o. 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 Melanoma: [id number] Stage IIIA Treatment: s/p primary excision and [...] year with serologies documented in this encounter [facility] 03-03-2023 Instructions Roseann Rogers RN - 03/03/2023 11:40 AM EDT Return to clinic : RTC 1 year with labs Provider: Dr Puckett Labs: yes Scans: none Treatment: none Referrals: none Contacting Our Office For any questions or concerns related to your oncology care that need addressed before your next scheduled visit please call our clinic office at [phone]. For any symptom management please call our office to directly speak with a nurse and refrain from using [facility], as we may need additional details regarding your symptoms. You may utilize [facility] for non-urgent questions. These messages are not checked on evenings, weekends, and holidays. We may ask you to send pictures of rashes or skin changes through [facility]. Clinic staff nurses are available to answer [...] call 911. Our office fax number is [phone] Preparing for your next clinic visit Please [...] that the outside facility faxes the results [phone] If you have been hospitalized and do not have a follow-up appointment with our office, please call to schedule at [phone]. documented in this encounter [facility] 06-30-2022 Instructions Ita Ramos APRN.DIRECTOR AUDIENCE MARKETING - 06/30/2022 10:21 AM EDT Strep is [...] inability to swallow. documented in this encounter [facility] 06-30-2022 History of Presen t illness Narrative Subjective The history is provided by the patient. No foreign language instructor was used. HPI Marcos Nelson is a 37 year old female [...] Depression 04/11/2014 Malignant melanoma (HCC) stage IIIa, [facility] I have confirmed and edited as necessary, the [facility] Sore t Review of Systems Constitutional: Negative [...] detail warranting prompt ER evaluation. Ita Ramos APRN.KAVITHA documented in this encounter [facility] 03-04-2022 History of Presen t illness Narrative Images from the original note [...] PCP 06/2013 who referred her to a launch operator. She delivered a healthy child 12/2013, then underwent a biopsy on 11/16/2013 of left mid-back with biopsy ([id number]), reviewed at [facility] on 03/25/2014. Patient Active Problem List Diagnosis Date Noted Obesity: body mass index of 35.0-39.9 03/06/2021 Allergy to IVP dye 05/16/[address] scan 02/29/2016 Liver lesion 02/29/2016 Observation for suspected malignant neoplasm 03/13/2015 Malignant melanoma of back 09/07/2014 11/16/2013 left mid-back, biopsy ([id number]), reviewed at [facility] on 03/25/2014- malignant melanoma, possibly nodular type, tumor thickness at least 1.78 mm, Moose IV, no ulceration, peripheral and deep margins involved by invasive melanoma, mitotic count is 1/mm2, vertical growth phase present 11/25/2013 biopsy ([id number])- mildly dysplastic compound nevus, inked margins free in planes of sections examined 12/08/2013 skin, left upper back, excision & left axillary SLN lymphadenectomy ([id number]): o 03/21/14 pathology was reviewed at [facility] ([id number]) o Wide excision: scar, inked margins are free in planes of sections examined. o [place] lymph node, left axilla, lymphadenectomy: focus of [...] disease (0/34) 11/04/14 right mid upper back ([id number]): mildly dysplastic compound nevus o Right lateral upper back: Compound nevus 02/17/15 skin biopsies ([id number]) Left lalteral abdomen: Compound nevus Right 2nd toe: Acral compound nevus Left lower abdomen: Moderately dysplastic junctional nevus. 03/21/15 wide excision ([id number]): A. Left lower abdomen: Negative for residual neoplasm. B. Right mid upper back: Focal recurrent nevus; negative margins. 04/12/16 mid chest, shave removal ([id number]): Atypical nevi. Past Medical History: Past Medical History: Diagnosis Date Malignant melanoma of back 09/07/2014 11/16/2013 left mid-back, biopsy ([id number]), reviewed at [facility] on 03/25/2014- malignant melanoma, possibly nodular type, tumor thickness at least 1.78 mm, Moose IV, no ulceration, peripheral and deep margins involved by invasive melanoma, mitotic count is 1/mm2, vertical growth phase present 11/25/2013 biopsy ([id number])- mildly dysplastic compound nevus, inked margins free in planes Past Surgical History: Past Surgical History: Procedure Laterality Date DILATION AND CURETTAGE 10/10/2017 [facility]; D&C for miscarriage LYMPH NODE DISSECTION Left [...] resp. rate 16, height 1.684 m (5' 6.3), weight 100 kg (220 lb 8 oz), [...] CT abd/pelvis 01/25/20: MRI brain 01/25/20: Assessment/Plan: Marcos nelson is a 37 y.o. 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 Melanoma: [id number] Stage IIIA Patient was seen as a shared visit with Dr. Felicitas Puckett. Please see her clinic note on 03/04/22 for complete impression and plan. Pepper Patrick MS, CRA OFFICER-DIRECTOR AUDIENCE MARKETING, AOCNP Nurse Practitioner Melanoma & Other Cutaneous Malignancies [facility] I independently performed a history and physical examination of the patient. I reviewed and confirmed the HPI, PMH, family history, social history, medications and allergies, review of systems, and discussed management with the ADJUSTER ARBITRATOR. Refer to the ADJUSTER ARBITRATOR note for details. Review of systems is as noted in ADJUSTER ARBITRATOR note, in medical record, and is otherwise unremarkable. I reviewed the scans and reports, labs and medical records. I agree with the documented findings and plan of care. Marcos Nelson is a 37 y.o. female who carries a diagnosis of Melanoma. Patient presents today for an evaluation while on active surveillance. Patient feels well overall. She states she has a launch operator appointment coming up on 04/22/22. Patient follows [...] lb 8 oz) Height: 1.684 m (5' 6.3) SC= 15 (03/04/22) Exam was unremarkable for organomegaly, extraneous lung sounds, lymphadenopathy, neurologic deficit, or rash. Reflexes 0. Scans: Mammography 02/07/22: Stable bilateral mammogram. Labs: Stable, LDH 137 U/L A/P: Melanoma: [id number] Stage IIIA Treatment: s/p primary excision and [...] RTC: 1 year with serologies Documented by Bindu Valerio, for Dr. Felicitas Puckett on 03/04/22 12:35 [...] the decisions made. Felicitas Puckett MD, PhD business development director documented in this encounter [facility] 03-04-2022 Instructions Roseann Gonsalves RN - 03/04/2022 10:39 AM EDT Images from the original note were not included. Return to clinic : RTC 1 year with labs Provider: Dr Puckett Labs: yes My name is VARSHA Ferrera, RN, and I am your nurse in clinic today. For any questions or concerns after your clinic visit please call the telephone triage nurses at [phone]. Contacting Our Office Clinic staff nurses are [...] physician to our office please fax to [phone]. Coronavirus Information Please call and notify our [...] COVID-19 spread? Based on current CDC guidance, mbitaf-ql-nlviyf spread most likely occurs through respiratory droplets [...] to do? The CDC advises, and the [facility] mandates wearing a mask to avoid [...] on your trip. Below are links to [facility], [facility] and [facility] that contain relevant travel information. https://zanamedical.[facility]/fe atures/coronavirus/patient-care, https://coronavirus.[place].[facility]/wps /portal/gov/covid-19/families-an d-individuals/ATBMH-33-Ykwwvb-Ad visory/IDNAT-11-Siupfu-Advisory, AND https://coronavirus.[place].[facility]/wps /portal/gov/covid-19/families-an d-individuals/XGHSH-33-Hfczqp-Ad visory/KPOCC-85-Jhicdx-Advisory Hand Washing - The Jesus When you [...] Rub Alcohol hand rub, also called hand blanching machine operator, can be used instead of soap and water if your hands do not look dirty or soiled. To clean your hands with the alcohol rub, use enough to cover the front and back of both hands and all your fingers. Rub the blanching machine operator briskly over the front and back of your hands and between your fingers. Do this for at least 20 seconds until your hands are dry. February 21, 2016. The [facility] [place] [facility] and [facility]. This handout is for informational purposes only. Talk with your doctor or health care team if you have any questions about your care. For more health information, call the [facility] at [phone] or visit cancer.[facility]/PF documented in this encounter [facility] 04-17-2021 History of Presen t illness Narrative Pt called and left message with late cancellation notice. She states she will call back to re schedule at a later date. Samantha Sandra RD, STRAP STITCHER, LD documented in this encounter [facility] 04-06-2013 History of Past i llness Narrative Problem Noted Date Resolved Date Supervision of normal first 04/06/2013 11/22/2013 Nausea/vomiting in 03/08/2013 Overview: 03/08/2013Patient has noticed some nausea, with little vomiting. She is requesting medication prescription for the nausea before she leaves for a vacation. Discussed nausea vomiting in . Patient is advised to call/come in if she is unable to keep any food or fluids down in a 24-hour period. Phenergan prescription written by Dr. Reynolds. 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, except scrotum Encounter for follow-up surveillance of melanoma [facility] Diagnosis Sore throat- Primary Acute pharyngitis URI, acute Acute upper respiratory infections of unspecified site [facility] Diagnosis 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, except scrotum Encounter for follow-up surveillance of melanoma [facility] Diagnosis Onset Date Resolution Status Sinus infection acute Anxiety acute Body mass index (BMI) of 38.0 to 38.9 in adult acute Obesity acute Encounter for routine gynecological examination noneactive [facility] Work Phone: Evaluation note* Diagnosis 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, except scrotum Encounter for follow-up surveillance of melanoma [facility] Diagnosis Right foot pain- Primary Pain in limb 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, except scrotum [facility] Diagnosis Pain in right foot- Primary Pain in limb [facility] Diagnosis Numbness and tingling of foot- Primary Disturbance of skin sensation Acquired hallux limitus of left foot Other acquired deformity of toe [facility] Diagnosis Pain in right foot Pain in limb Numbness and tingling of foot Disturbance of skin sensation Acquired hallux limitus of left foot Other acquired deformity of toe [facility] Diagnosis Pain in right leg- Primary Numbness and tingling of foot Disturbance of skin sensation Acquired hallux limitus of left foot Other acquired deformity of toe Paresthesia of skin Disturbance of skin sensation [facility] Diagnosis 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, except scrotum [facility] Diagnosis Neuropathy- Primary Mononeuritis of unspecified site [facility] Diagnosis 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 [address] [place] [address] Referral ID Status Reason Start Date Expiration Date V isits Requested Visits Authorized [id number] New Request 03/02/2024 03/27/2025 1 1 [facility] for referral (narrative)* Diagnostic Procedure Only (Routine) - New Request Specialty Diagnoses / Procedures Referred By Dexter green Referred To Contact XR IMAGING Diagnoses Pain in right foot Procedures XR FOOT GENERAL 3V AP/LAT/OBL RIGHT RADEX FOOT COMPLETE MINIMUM 3 VIEWS Gail Calderon [address] [place] [address] [place] [address] Referral ID Status Reason Start Date Expiration Date Visits Requested Visits Authorized [id number] New Request Auto-Generat ed Referral 04/14/2024 05/14/2025 1 1 [facility] for referral (narrative)* Outpatient Procedure (Routine) - Authorized Specialty Diagnoses / Procedures Referred By Dexter green Referred To Contact [facility] Diagnoses Numbness and tingling of foot Acquired hallux limitus of left foot Procedures EMG(NEURO/NI) NERVE CONDUCTION STUDIES 9-10 STUDIES Gail Calderon [address] [place] [address] [facility] [place] [address] [place] [address] Referral ID Status Reason Start Date Expiration Date Visits Requested Visits Authorized [id number] Authorized Auto-Generat ed Referral 04/20/2024 04/20/2025 1 1 * Diagnostic Procedure Only (Routine) - Closed Specialty Diagnoses / Procedures Referred By Contac t Referred To Contact XR IMAGING Diagnoses Numbness and tingling of foot Acquired hallux limitus of left foot Procedures XR LUMBAR MOTION 4V AP/LAT/ FLEX/EXT RADEX SPINE LUMBOSACRAL MINIMUM 4 VIEWS Gail Calder[address] [place] [address] [facility] Referral ID Status Reason Start Date Expiration Date V isits Requested Visits Authorized [id number] Closed Auto-Generate d Referral 04/20/2024 05/20/2025 1 1 * Diagnostic Procedure Only (Routine) - Closed Specialty Diagnoses / Procedures Referred By Contac t Referred To Contact XR IMAGING Diagnoses Numbness and tingling of foot Acquired hallux limitus of left foot Procedures XR FOOT GENERAL 3V AP/LAT/OBL BILATERAL RADEX FOOT COMPLETE MINIMUM 3 VIEWS Gail [address] [place] [address] [place] [address] Referral ID Status Reason Start Date Expiration Date V isits Requested Visits Authorized [id number] Closed Auto-Generate d Referral 04/20/2024 05/20/2025 1 1 [facility] for referral (narrative)* Diagnostic Procedure Only (Routine) - Closed Specialty Diagnoses / Procedures Referred By Contac t Referred To Contact XR IMAGING Diagnoses Numbness and tingling of foot Acquired hallux limitus of left foot Procedures XR LUMBAR MOTION 4V AP/LAT/ FLEX/EXT RADEX SPINE LUMBOSACRAL MINIMUM 4 VIEWS Gail [address] [place] [address] [place] [address] Referral ID Status Reason Start Date Expiration Date V isits Requested Visits Authorized [id number] Closed Auto-Generate d Referral 04/20/2024 05/20/2025 1 1 [facility] Diagnostic Procedure Only (Routine) - Closed Specialty Diagnoses / Procedures Referred By Contac t Referred To Contact XR IMAGING Diagnoses Pain in right foot Procedures XR FOOT GENERAL 3V AP/LAT/OBL RIGHT RADEX FOOT COMPLETE MINIMUM 3 VIEWS Gail Calderon [address] [place] [address] [place] [address] Referral ID Status Reason Start Date Expiration Date V isits Requested Visits Authorized [id number] Closed Auto-Generate d Referral 04/14/2024 05/14/2025 1 1 [facility] Chief Complaint and Reason for Visit Chief Complaint weight/BP check weight/BP check SCREENING Chief Complaint SINUS COMPLAINTS Annual ([employer]) Reason for Visit Sinus infection Anxiety Body mass index (BMI) of 38.0 to 38.9 in adult Obesity Encounter for routine gynecological examination Family History No Family History Records Found Relationship Condition Age at Onset Recorded Date/T terrell father Cardiac disease 68 mother Ataxia Unknown Disorder of thyroid Unknown Advance Directives No Advanced Directives Records Found Advance Directive Response Recorded Date/ Time Living Will Yes September 02 5:11am Power of Veterans' Coordinator Yes September 02, 2018 5:11am Advance Directive Response Recorded Date/ Time Living Will Yes September 02 4:11am Power of Veterans' Coordinator Yes September 02, 2018 4:11am Reason for Referral Specialty Diagnoses / Procedures Referred By Contac t Referred To Contact Diagnoses Malignant melanoma of back Procedures QUESTIONNAIRE SERIES Pepper Patrick, CRA OFFICER-DIRECTOR AUDIENCE MARKETING [address] [facility] [address]th [place] [address] Referral ID Status Reason Start Date Expiration Date V isits Requested Visits Authorized [id number] New Request 03/04/2022 03/29/2023 1 1 Specialty Diagnoses / Procedures Referred By Contac t Referred To Contact Diagnoses Malignant melanoma of back Procedures MRI SPINE LUMBAR WITH AND WITHOUT CONTRAST MRI SPINE LUMBAR WITHOUT CONTRAST CHG MRI SPINAL CANAL LUMBAR W/O CONTRAST MATERIAL CHG MRI SPINAL CANAL LUMBAR W/O & W/CONTR MATRL Ifeoma Larson, CRA OFFICER-DIRECTOR AUDIENCE MARKETING [address] [facility] [address] [place] [address] Referral ID Status Reason Start Date Expiration Date Visits Re quested Visits Authorized [id number] Closed 06/04/2024 06/29/2025 1 1 Summary Purpose Additional Source Comments Reason for Visit (unrecogniz ed section and content) Reason Comments Nutrition Consultation Specialty Diagnoses / Procedures Referred By Contac t Referred To Contact Registered Dietitian / Nutrition and Dietetics Diagnoses f/u for desired wt loss Procedures RETURN PATIENT Felicitas Puckett MD, PhD [address] [place] [address] Samantha Sandra, RD [address] [place] [address] Referral ID Status Reason Start Date Expiration Date V isits Requested Visits Authorized [id number] New Request 04/17/2021 05/12/2022 1 1 Reason Comments Melanoma Malignant melanoma o f back Reason Comments Pain, Throat Bilateral ear pain r ated 5, x4 days. Reason Comments Follow-up Reason Comments Labs Only Reason Comments Follow-up Malignant melanoma o f back Reason Comments New Numbness Reason Comments Results Reason Onset Date Comments EMG 05/28/2024 Specialty Diagnoses / Procedures Referred By Contac t Referred To Contact [facility] Diagnoses Numbness and tingling of foot Acquired hallux limitus of left foot Procedures EMG(NEURO/NI) NERVE CONDUCTION STUDIES 9-10 STUDIES Gail Calderon [address] [place] [address] [facility] [place] [address] [place] [address] Referral ID Status Reason Start Date Expiration Date V isits Requested Visits Authorized [id number] Closed Auto-Generate d Referral 04/20/2024 04/20/2025 1 1 Specialty Diagnoses / Procedures Referred By Contac t Referred To Contact Diagnoses Malignant melanoma of back Procedures MRI SPINE LUMBAR WITH AND WITHOUT CONTRAST MRI SPINE LUMBAR WITHOUT CONTRAST CHG MRI SPINAL CANAL LUMBAR W/O CONTRAST MATERIAL CHG MRI SPINAL CANAL LUMBAR W/O & W/CONTR DOLORES Ifeoma Larson, CRA OFFICER-DIRECTOR AUDIENCE MARKETING [address] [address] Referral ID Status Reason Start Date Expiration Date Visits Re quested Visits Authorized [id number] Closed 06/04/2024 06/29/2025 1 1 Reason Comments New Patient New Pt, reports inte rmittent achy pain along B/L belt line in the last several months. Phx: none, melanoma NKI. Denies N/t. Tx: EMG, No PT. 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 Pain New Pt, reports inte rmittent achy pain along B/L belt line in the last several months. Phx: none, melanoma NKI. Denies N/t. Tx: EMG, No PT. 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 Specialty Diagnoses / Procedures Referred By Contac t Referred To Contact Spine Diagnoses Malignant melanoma of back Encounter for follow-up surveillance of melanoma Felicitas Puckett MD, PhD [address] [address] Referral ID Status Reason Start Date Expiration Date V isits Requested Visits Authorized [id number] New Request 06/29/2024 07/24/2025 1 1 Reason Comments Melanoma 1 year follow-up Care Teams (unrecognized sec tion and content) Engine Repairer Service Relationship Specialty Start Date End Date Flora Delaney MD [address] [place] [address] PCP - General Family Medicine 09/07/14 [place] [address] [place] [address] Consulting Physician Hematology 09/07/14 Kenna Drake MD [address] [place], [place] [id number] Dermatology 12/08/14 Felicitas Puckett MD, PhD [address] [phone] Oncologist Medical Oncology 03/13/15 Engine Repairer Service Relationship Specialty Start Date End Date Flora Delaney MD [address] [place] [phone] PCP - General Family Medicine 09/07/14 [place] [address] [place] [address] Consulting Physician Hematology 09/07/14 Kenna Drake MD [address] [place] [phone] Dermatology 12/08/14 Felicitas Puckett MD, PhD [address] [address] Oncologist Medical Oncology 07/02/04 Engine Repairer Service Relationship Specialty Start Date End Date Flora Delaney PCP - General 04/05/05 Engine Repairer Service Relationship Specialty Start Date End Date Flora Delaney MD [address] [place] [phone] PCP - General Family Medicine 09/07/14 [place] [address] [place] [address] Consulting Physician Hematology 09/07/14 Kenna Drake MD [address] [place] [address] Dermatology 12/08/14 Felicitas Puckett MD, PhD [address] [phone] Oncologist Medical Oncology 07/02/04 Team Status: Active Member Role Status Dates Dr. Flora Delaney MD Family Provider Active Dr. Flora Delaney MD Primary Care Provider Active Team Status: Inactive Member Role Status Dates Dr. Flora Delaney MD Primary Care Provider, Referrin g Provider Active Angela Ferguson ADJUSTER ARBITRATOR, ADJUSTER ARBITRATOR-C Attending Provider Active Team Status: Inactive Member Role Status Dates Dr. Flora Delaney MD Primary Care Provider, Referrin g Provider Active Nancy Garvey NP-C Attending Provider Active Team Status: Inactive Member Role Status Dates Dr. Flora Delaney MD Primary Care Provider Active Angela Ferguson NP, ADJUSTER ARBITRATOR-C Attending Provider Active Engine Repairer Service Relationship Specialty Start Date End Date Flora Delaney MD [address] [place] [phone] PCP - General Family Medicine 09/07/14 [place] [address] [place] [phone] Consulting Physician Hematology 09/07/14 Kenna Drake MD [address] [place] [address] Dermatology 12/08/14 Felicitas Puckett MD, PhD [address] [address] Oncologist Medical Oncology 07/02/04 Engine Repairer Service Relationship Specialty Start Date End Date Flora Delaney MD [address] [place] [phone] PCP - General Family Medicine 09/07/14 [place] [address] [place] [phone] Consulting Physician Hematology 09/07/14 Kenna Drake MD [address] [place] [address] Dermatology 12/08/14 Felicitas Puckett MD, PhD [address] [facility] [address]th [place] [address] Oncologist Medical Oncology 07/02/04 [employer]airer Service Relationship Specialty Start Date End Date Flora Delaney PCP - General 04/05/05 [employer] Repairer Service Relationship Specialty Start Date End Date Flora Delaney PCP - General 04/05/05 Engine Repairer Service Relationship Specialty Start Date End Date Flora Delaney PCP - General 04/05/05 Engine Repairer Service Relationship Specialty Start Date End Date Flora Delaney PCP - General 04/05/05 Engine Repairer Service Relationship Specialty Start Date End Date Flora Delaney PCP - General 04/05/05 Engine Repairer Service Relationship Specialty Start Date End Date Flora Delaney PCP - General 04/05/05 Engine Repairer Service Relationship Specialty Start Date End Date Flora Delaney MD [address] [place] [phone] PCP - General Family Medicine 09/07/14 [place] [address] [place] [phone] Consulting Physician Hematology 09/07/14 Kenna Drake MD [address] [place], [place] [phone] Dermatology 12/08/14 Felicitas Puckett MD, PhD [address] [facility] [address] [place] [address] Oncologist Medical Oncology 07/02/04 Engine Repairer Service Relationship Specialty Start Date End Date Flora Delaney MD [address] [place] [phone] PCP - General Family Medicine 09/07/14 [place] [address] [place] [phone] Consulting Physician Hematology 09/07/14 Kenna Drake MD [address] [place] [address] Dermatology 12/08/14 Felicitas Puckett MD, PhD [address] [phone] Oncologist Medical Oncology 07/02/04 Engine Repairer Service Relationship Specialty Start Date End Date Flora Delaney MD PCP - General Family Medicine 09/07/14 Royal José Jr., Jr., Jr., MD Consulting Physician Hematology 09/07/14 Kenna Drake MD [address] [place], [place] [phone] Dermatology 12/08/14 Felicitas Puckett MD, PhD [address] [phone] Oncologist Medical Oncology 07/02/04 Engine Repairer Service Relationship Specialty Start Date End Date Flora Delaney MD PCP - General Family Medicine 09/07/14 Royal José Jr., Jr., Jr., MD Consulting Physician Hematology 09/07/14 Kenna Drake MD [address] [place], [place] [phone] Dermatology 12/08/14 Felicitas Puckett MD, PhD [address] [phone] Oncologist Medical Oncology 07/02/04 Goals (unrecognized section and content) Goals may be documented in a n alternate sectionGoals may be documented in an alternate section Source Comments (unrecognize d section and content) In the event this informatio n is protected by the Federal Confidentiality of Alcohol and Drug Abuse Patient Records regulations: The Federal rules restrict any use of the information to criminally investigate or prosecute any alcohol or drug abuse patient.[facility] the event this information is protected by the Federal Confidentiality of Alcohol and Drug Abuse Patient Records regulations: The Federal rules restrict any use of the information to criminally investigate or prosecute any alcohol or drug abuse patient.[facility] the event this information is protected by the Federal Confidentiality of Alcohol and Drug Abuse Patient Records regulations: The Federal rules restrict any use of the information to criminally investigate or prosecute any alcohol or drug abuse patient.[facility] the event this information is protected by the Federal Confidentiality of Alcohol and Drug Abuse Patient Records regulations: The Federal rules restrict any use of the information to criminally investigate or prosecute any alcohol or drug abuse patient.[facility] the event this information is protected by the Federal Confidentiality of Alcohol and Drug Abuse Patient Records regulations: The Federal rules restrict any use of the information to criminally investigate or prosecute any alcohol or drug abuse patient.[facility] the event this information is protected by the Federal Confidentiality of Alcohol and Drug Abuse Patient Records regulations: The Federal rules restrict any use of the information to criminally investigate or prosecute any alcohol or drug abuse patient.[facility] the event this information is protected by the Federal Confidentiality of Alcohol and Drug Abuse Patient Records regulations: The Federal rules restrict any use of the information to criminally investigate or prosecute any alcohol or drug abuse patient.[facility] INFORMATION SOURCE (unrecogn ized section and content) DATE CREATED AUTHOR 05/31/[address] [facility] DATE CREATED AUTHOR AUTHOR'S ORGANIZ ATION 03/09/2025 [facility] DATE CREATED AUTHOR AUTHOR'S ORGANIZ ATION 05/06/2025 [facility] FOR RECORDS PERTAINING TO PATIENTS [...] BE BASED ON THE PRIMARY CLINICAL RECORDS. [facility], [facility]. provides no warranty or guarantee of the accuracy or completeness of information in this document.
== END | disposition home or self-care (01) ==
LOC: OPBI 07:24
PROVIDERS: PCP Family Medicine; Referring Provider Obstetrics & Gynecology; Visit Provider Obstetrics & Gynecology
DX: Z12.31 Encounter for screening mammogram for malignant neoplasm of breast (principal)
CPT/HCPCS: 77063; 77067